=== PATIENT | female | born 1950 | race Caucasian/White ===

== ENCOUNTER → 2017-04-25 | Outpatient (CLI) | payer MEDICARE ==
[~2017-04-25] MED LIST: ALEN70TA47 PO; CETI10TA20 PO; ERGO50006 PO; FLUT1AER INH; FURO-124 PO; FURO40TA4 PO; HYDR-3730 PO; HYDR-3812 PO; LISI1TAB PO; MILN50TA6 PO; MONT10TA24 PO; NAPR1TAB21 PO; NF-ESOM40C PO; OXYC-12 PO; POTA8CAP9 PO; POTA8TAB6 PO; PREG150C PO; SERT50TA2 PO; TOPI100T PO
--- NOTE | 2017-04-25 13:26 | Diagnostic Imaging Report ---
EXAMINATION: Three views of the right knee were performed. INDICATION: The knee gives out. FINDINGS: There is total knee replacement with the prosthesis in good position. It appears similar to the baseline radiographs of 08/31/2010 except for a 1 mm zone of lucency seen along the anterior aspect of the supracondylar portion of the femur. There is no evidence of loosening otherwise in the femoral prosthesis or in the tibial prosthesis. The patellar resurfacing appears unremarkable. IMPRESSION: There is a 1 mm zone of lucency between the femoral prosthesis and the anterior cortex in the supracondylar region of the femur of uncertain significance. No other lucencies adjacent to the prosthesis which appears well seated in the distal femur and proximal tibia are seen. Correlate clinically. Dictated by: Dictated on workstation # [id number]
== END ==
LOC: RAD 10:14
PROVIDERS: ATTEND Orthopaedic Surgery
DX: Z96.651 Presence of right artificial knee joint (principal)
CPT/HCPCS: 73562

== ENCOUNTER 2017-06-13 10:11 | Outpatient (CLI) | payer MEDICARE ==
[~2017-06-13] VITALS: Ht 176.5 cm; Wt 81.6 kg
[~2017-06-13 10:11] MED LIST changes: -CETI10TA20 PO; -HYDR-3812 PO; -POTA8TAB6 PO
[2017-06-13 10:55] LABS: BASOPHILS # (AUTO) 0.1 10^3/uL (0.0-0.1); BASOPHILS % (AUTO) 1 % (0-10); EOSINOPHILS # (AUTO) 0.1 10^3/uL (0.0-0.3); EOSINOPHILS % (AUTO) 2 % (0-10); LYMPHOCYTES # (AUTO) 3.3 X 10^3 (1.0-4.0); LYMPHOCYTES % (AUTO) 39 % (12-44); MEAN CORPUSCULAR HEMOGLOBIN 31 PG (25-34); MEAN CORPUSCULAR HGB CONC 33 G/DL (32-36); MEAN CORPUSCULAR VOLUME 95 FL (80-99); MEAN PLATELET VOLUME 11.1 FL (7.4-10.4); MONOCYTES # (AUTO) 0.6 X 10^3 (0.0-1.0); MONOCYTES % (AUTO) 7 % (0-12); NEUTROPHILS # (AUTO) 4.3 X 10^3 (1.8-7.8); NEUTROPHILS % (AUTO) 51 % (42-75); PLATELET COUNT 308 10^3/uL (130-400); RED BLOOD COUNT 5.15 10^6/uL (4.35-5.85); RED CELL DISTRIBUTION WIDTH 13.4 % (10.0-14.5); WHITE BLOOD COUNT 8.4 10^3/uL (4.3-11.0)
[2017-06-13 10:57] LABS: BILIRUBIN,URINE NEGATIVE (NEGATIVE); KETONES,URINE NEGATIVE (NEGATIVE); LEUKOCYTE ESTERASE ,URINE NEGATIVE (NEGATIVE); NITRITE,URINE NEGATIVE (NEGATIVE); PH,URINE 5 (5-9); PROTEIN,URINE NEGATIVE (NEGATIVE); UROBILINOGEN,URINE NORMAL (NORMAL)
[2017-06-13 11:07] LABS: PROTHROMBIN TIME PATIENT 12.8 SEC (12.2-14.7)
[2017-06-13 11:10] LABS: SQUAMOUS EPITHELIAL CELL,UR 0-2 /HPF
[2017-06-13 11:16] LABS: ALANINE AMINOTRANSFERASE 19 U/L (0-55); ALBUMIN 4.7 GM/DL (3.2-4.5); ANION GAP 11 MMOL/L (5-14); ASPARTATE AMINO TRANSFERASE 16 U/L (5-34); BILIRUBIN,TOTAL 0.4 MG/DL (0.1-1.0); BLOOD UREA NITROGEN 14 MG/DL (7-18); BUN/CREATININE RATIO 16; CARBON DIOXIDE 26 MMOL/L (21-32); CHLORIDE 106 MMOL/L (98-107); CREATININE SERUM 0.87 MG/DL (0.60-1.30); GFR ESTIMATED > 60; GLUCOSE 91 MG/DL (70-105); POTASSIUM 3.6 MMOL/L (3.6-5.0); SODIUM 143 MMOL/L (135-145); TOTAL PROTEIN 7.7 GM/DL (6.4-8.2)
[2017-06-13 11:25] LABS: ERYTHROCYTE SEDIMENTATION RATE 1 MM/HR (0-30)
--- NOTE | 2017-06-13 12:23 | Diagnostic Imaging Report ---
PA and lateral views of the chest. INDICATION: Preoperative evaluation. COMPARISON: 04/01/16. FINDINGS: The lungs are hyperinflated. There is colonic gas seen in the right subdiaphragmatic area with no evidence of pneumoperitoneum. Mild opacity in the left lung base was seen previously compatible with scarring is noted with no definite acute consolidation. The heart size is normal. No significant effusion or pneumothorax. The mediastinum and kiki appear unremarkable. IMPRESSION: COPD. Mild left basilar scarring. Dictated by: Dictated on workstation # [id number]
[2017-06-13] MEDS ORDERED: POTA8TAB6 PO (15:23)
[2017-06-13] MEDS ORDERED: CETI10TA20 PO (15:23)
[2017-06-13] MEDS ORDERED: HYDR-3812 PO (15:23)
== END 2017-06-13 11:00 | disposition home or self-care (01) ==
LOC: PREOP 10:11
PROVIDERS: ATTEND Orthopaedic Surgery
DX: Z01.811 Encounter for preprocedural respiratory examination (principal); M25.361 Other instability, right knee; R53.83 Other fatigue
CPT/HCPCS: 36415; 71020; 80053; 81000; 85025; 85610; 85652; 86850; 86900; 86901; 87081; 93005

== ENCOUNTER 2017-07-26 10:00 | Outpatient (RCR) | payer MEDICARE ==
--- NOTE | 2017-06-21 14:54 | Anesthesia-General Post-Op ---
General Patient Condition Mental Status/LOC: Same as Preop Cardiovascular: Satisfactory Nausea/Vomiting: Absent Respiratory: Satisfactory Pain: Controlled Complications: Absent Post Op Complications Complications None Follow Up Care/Instructions Patient Instructions None needed. Anesthesia/Patient Condition Patient Condition Patient is doing well, no complaints, stable vital signs, no apparent adverse anesthesia problems. No complications reported per nursing. WILFRIDO TYSON CRNA Jun 21, 2017 14:54
[~2017-07-26 10:00] MED LIST changes: +ACHD5005 PO; +CETI10TA20 PO; +POTA8TAB6 PO
== END 2017-08-14 08:40 | disposition home or self-care (01) ==
PROVIDERS: ATTEND Orthopaedic Surgery
DX: M25.461 Effusion, right knee (principal); Z96.651 Presence of right artificial knee joint

== ENCOUNTER 2018-05-23 10:33 | Outpatient (CLI) | payer MEDICARE ==
[~2018-05-23] VITALS: Ht 176.5 cm; Wt 82.3 kg
[2018-05-23] MEDS ORDERED: HYDR200T78 PO (10:51)
[2018-05-23] MEDS ORDERED: PSEU120T18 PO (10:51)
[2018-05-23] MEDS ORDERED: DIPH25TA31 PO (10:51)
[2018-05-23] MEDS ORDERED: TOPI100T11 PO (10:51)
[2018-05-23] MEDS ORDERED: LEVO100T PO (10:51)
[2018-05-23] MEDS ORDERED: FLUT1BLS IH (10:51)
[2018-05-23 10:54] VITALS: BP 126/77
== END 2018-05-23 11:20 | disposition home or self-care (01) ==
LOC: PREOP 10:33
PROVIDERS: ATTEND Orthopaedic Surgery
DX: Z01.818 Encounter for other preprocedural examination (principal)
CPT/HCPCS: 87081

== ENCOUNTER 2018-05-29 08:54 | Day surgery (SDC) | payer MEDICARE ==
--- NOTE | 2018-05-20 10:33 | HISTORY AND PHYSICAL ---
DATE OF SERVICE: ADMISSION HISTORY AND PHYSICAL DATE OF SURGERY: This will be for admission for outpatient left knee arthroscopy on 05/29/2018. HISTORY OF PRESENT ILLNESS: The patient is a 68-year-old female with complaints of left anterior knee pain, catching and locking. She reports pain with stairs. She denies any specific injuries. She reports this has been ongoing since September. She has undergone treatment with injections with only temporary relief of symptoms. Due to mechanical symptoms and failure to improve with conservative measures, the patient elected to proceed with surgical intervention. REVIEW OF SYSTEMS: No chest pain, no shortness of breath. No dysuria. PAST MEDICAL HISTORY: Asthma, fibromyalgia, reflux, hypertension, osteoporosis, hiatal hernia and chronic sinusitis. PAST SURGICAL HISTORY: Herniorrhaphy, right total knee arthroplasty, partial hysterectomy, cholecystectomy, appendectomy and right knee revision. FAMILY HISTORY: Noncontributory. PRIMARY CARE PROVIDER: Dr. White. MEDICATIONS: 1. Lasix. 2. Singulair. 3. Potassium. 4. Vimovo. 5. Lyrica. 6. Alendronate 7. Aspirin. 8. Thyroid. 9. Breo Ellipta. 10. Sudafed. ALLERGIES: AZITHROMYCIN and PENICILLIN. SOCIAL HISTORY: The patient is a former smoker. Denies alcohol use. RADIOGRAPHS: Reveal calcification of her menisci with no evidence of fracture or dislocation. There is mild medial and patellofemoral joint space narrowing. PHYSICAL EXAMINATION: GENERAL: The patient is well developed, well nourished, in no acute distress. HEENT: Normocephalic and atraumatic. Pupils are equal, round and reactive to light. Oropharynx is clear. NECK: Supple. No lymphadenopathy. LUNGS: Clear to auscultation bilaterally. HEART: Regular rate and rhythm. ABDOMEN: Soft, nontender and nondistended. EXTREMITIES: Left knee demonstrates patellofemoral crepitus and pain with patellar loading. She has a moderate effusion. Range of motion is 0/0/140. There is no varus valgus laxity. Negative anterior and posterior drawer. She has mild pain medially with Norman's. IMPRESSION: Left knee chondromalacia of the patella. PLAN: Left knee arthroscopy and chondroplasty. The risks, benefits, options, ramifications and recovery have been discussed at length with the patient. She understands and wishes to proceed. Job ID: [id number] DocumentID: [id number] Dictated Date: 05/20/2018 10:08:26 Central Office Frame Wirer Date: 05/20/2018 10:33:01 Dictated By: RON HERCULES MD
[~2018-05-29] VITALS: Ht 176.5 cm; Wt 82.3 kg
[~2018-05-29 08:54] MED LIST changes: +DIPH25TA31 PO; +FLUT1BLS IH; +HYDR200T78 PO; +LEVO100T PO; +PSEU120T18 PO; +TOPI100T11 PO
[2018-05-29] MEDS ORDERED: LIDOCAINE 1% INJ 20 ML 20 ML VIAL ONE (09:00)
--- OUTSIDE RECORDS SUMMARY | 2018-05-29 09:02 | XMS REPORT | Continuity of Care Document ---
Author Author [facility] Organization [facility] Address Unknown Phone Unavailable Allergies Active Description Code Type Severity Reaction Onset Reported/Identified Relationship to Patient Clinical Status Yes Penicillins [id number] Drug Allergy Unknown N/A 08/25/2010 Yes erythromycin base [id number] Drug Allergy Moderate HIVES 12/28/2015 Yes Penicillins [id number] Drug Allergy Unknown FROM CHILDHOOD 12/28/2015 Yes gluten [id number] Drug Allergy Unknown N/A 06/13/2017 Yes gluten [id number] Drug Allergy Mild HEADACHES 05/23/2018 Medications There is no data. Problems Date Dx Coded Attending Type Code Diagnosis Diagnosed By 11/04/2010 Ot 311 DEPRESSIVE DISORDER NEC 11/04/2010 Ot 401.9 HYPERTENSION NOS 11/04/2010 Ot 492.8 EMPHYSEMA NEC 11/04/2010 Ot 733.00 OSTEOPOROSIS NOS 11/04/2010 Ot V43.65 KNEE JOINT REPLACEMENT STATUS 11/04/2010 Ot V54.81 AFTERCARE FOLLOWING JOINT REPLACEMENT 11/04/2010 Ot V57.1 PHYSICAL THERAPY NEC 02/05/2015 TAMMY POWELL COUNTER FORMER Ot 786.05 02/05/2015 TAMMY POWELL COUNTER FORMER Ot 786.50 12/28/2015 DANIEL ZAPATA MD Ot K21.9 GASTRO-ESOPHAGEAL REFLUX DISEASE WITHOUT 12/28/2015 DANIEL ZAPATA MD, Ot K43.9 VENTRAL HERNIA WITHOUT OBSTRUCTION OR GA 12/28/2015 DANIEL ZAPATA MD, Ot Z01.812 ENCOUNTER FOR PREPROCEDURAL LABORATORY E 12/28/2015 DANIEL ZAPATA MD, Ot Z11.2 ENCOUNTER FOR SCREENING FOR OTHER BACTER 12/29/2015 DANIEL ZAPATA MD, Ot K21.9 GASTRO-ESOPHAGEAL REFLUX DISEASE WITHOUT 12/29/2015 DANIEL ZAPATA MD, Ot K43.9 VENTRAL HERNIA WITHOUT OBSTRUCTION OR GA 12/29/2015 DANIEL ZAPATA MD, Ot Z01.812 ENCOUNTER FOR PREPROCEDURAL LABORATORY E 12/29/2015 DANIEL ZAPATA MD, Ot Z11.2 ENCOUNTER FOR SCREENING FOR OTHER BACTER 01/06/2016 DANIEL ZAPATA MD, Ot K21.0 GASTRO-ESOPHAGEAL REFLUX DISEASE WITH ES 01/06/2016 DANIEL ZAPATA MD, Ot K29.70 GASTRITIS, UNSPECIFIED, WITHOUT BLEEDING 01/06/2016 DANIEL ZAPATA MD, Ot K29.80 DUODENITIS WITHOUT BLEEDING 01/06/2016 DANIEL ZAPATA MD, Ot K43.2 INCISIONAL HERNIA WITHOUT OBSTRUCTION OR 01/06/2016 DANIEL ZAPATA MD, Ot K44.9 DIAPHRAGMATIC HERNIA WITHOUT OBSTRUCTION 01/07/2016 DANIEL ZAPATA MD, Ot K21.0 GASTRO-ESOPHAGEAL REFLUX DISEASE WITH ES 01/07/2016 DANIEL ZAPATA MD, Ot K29.70 GASTRITIS, UNSPECIFIED, WITHOUT BLEEDING 01/07/2016 DANIEL ZAPATA MD, Ot K29.80 DUODENITIS WITHOUT BLEEDING 01/07/2016 DANIEL ZAPATA MD, Ot K43.2 INCISIONAL HERNIA WITHOUT OBSTRUCTION OR 01/07/2016 DANIEL ZAPATA MD, Ot K44.9 DIAPHRAGMATIC HERNIA WITHOUT OBSTRUCTION 01/12/2016 DANIEL ZAPATA MD, Ot K21.0 GASTRO-ESOPHAGEAL REFLUX DISEASE WITH ES 01/12/2016 DANIEL ZAPATA MD, Ot K29.70 GASTRITIS, UNSPECIFIED, WITHOUT BLEEDING 01/12/2016 DANIEL ZAPATA MD, Ot K29.80 DUODENITIS WITHOUT BLEEDING 01/12/2016 DANIEL ZAPATA MD, Ot K43.2 INCISIONAL HERNIA WITHOUT OBSTRUCTION OR 01/12/2016 DANIEL ZAPATA MD, Ot K44.9 DIAPHRAGMATIC HERNIA WITHOUT OBSTRUCTION 03/13/2016 Ot 490 BRONCHITIS NOS 03/13/2016 TAMMY POWELL COUNTER FORMER Ot 786.2 COUGH 03/13/2016 TAMMY POWELL COUNTER FORMER Ot 729.5 PAIN IN LIMB 03/13/2016 FLORIDALMA WHITE MD Ot 562.10 DIVERTICULOSIS COLON (W/O MENT OF HEMORR 03/13/2016 FLORIDALMA WHITE MD Ot 599.0 URIN TRACT INFECTION NOS 03/13/2016 FLORIDALMA WHITE MD Ot V13.01 PERSONAL HISTORY OF URINARY CALCULI 03/13/2016 Ot 496 CHR AIRWAY OBSTRUCT NEC 03/13/2016 VANPRICILA KOWALSKISA M COUNTER FORMER Ot 786.05 SHORTNESS OF BREATH 03/13/2016 VANMARCINLAURARE TAMMY M COUNTER FORMER Ot 786.50 CHEST PAIN NOS 03/14/2016 JULES FONSECA PURE CULTURE OPERATOR Ot J44.9 CHRONIC OBSTRUCTIVE PULMONARY DISEASE, U 03/14/2016 JULES FONSECA PURE CULTURE OPERATOR Ot R05 COUGH 04/07/2016 JULES FONSECA PURE CULTURE OPERATOR Ot J44.9 CHRONIC OBSTRUCTIVE PULMONARY DISEASE, U 04/07/2016 JULES FONSECA PURE CULTURE OPERATOR Ot R05 COUGH 04/25/2017 VANMEGHANA TAMMY M COUNTER FORMER Ot 786.2 COUGH 04/25/2017 ANDRE TAMMY M COUNTER FORMER Ot 729.5 PAIN IN LIMB 04/25/2017 CHRISTOPHER JONES, FLORIDALMA Edwards Ot 562.10 DIVERTICULOSIS COLON (W/O MENT OF HEMORR 04/25/2017 CHRISTOPHER JONES, FLORIDALMA Edwards Ot 599.0 URIN TRACT INFECTION NOS 04/25/2017 CHRISTOPHER JONES, FLORIDALMA Edwards Ot V13.01 PERSONAL HISTORY OF URINARY CALCULI 04/25/2017 Ot 496 CHR AIRWAY OBSTRUCT NEC 04/25/2017 VANFELECIARE TAMMY M COUNTER FORMER Ot 786.05 SHORTNESS OF BREATH 04/25/2017 ANDRE TAMMY M COUNTER FORMER Ot 786.50 CHEST PAIN NOS 04/25/2017 JULES FONSECA PURE CULTURE OPERATOR Ot J44.9 CHRONIC OBSTRUCTIVE PULMONARY DISEASE, U 04/25/2017 JULES FONSECA PURE CULTURE OPERATOR Ot R05 COUGH 06/01/2017 DIOMEDES JONES, RON Wylie Ot Z96.651 PRESENCE OF RIGHT ARTIFICIAL KNEE JOINT 06/13/2017 RON HERCULES MD, Ot M25.361 OTHER INSTABILITY, RIGHT KNEE 06/13/2017 RON HERCULES MD Ot R53.83 OTHER FATIGUE 06/13/2017 RON HERCULES MD, Ot Z01.811 ENCOUNTER FOR PREPROCEDURAL RESPIRATORY 06/13/2017 RON HERCULES MD, Ot Z01.812 ENCOUNTER FOR PREPROCEDURAL LABORATORY E 06/13/2017 RON HERCULES MD, Ot Z01.812 ENCOUNTER FOR PREPROCEDURAL LABORATORY E 06/22/2017 RON HERCULES MD, Ot F32.9 MAJOR DEPRESSIVE DISORDER, SINGLE EPISOD 06/22/2017 RON HERCULES MD, Ot F41.9 ANXIETY DISORDER, UNSPECIFIED 06/22/2017 RON HERCULES MD, Ot I10 ESSENTIAL (PRIMARY) HYPERTENSION 06/22/2017 RON HERCULES MD, Ot J44.9 CHRONIC OBSTRUCTIVE PULMONARY DISEASE, U 06/22/2017 RON HERCULES MD, Ot K21.9 GASTRO-ESOPHAGEAL REFLUX DISEASE WITHOUT 06/22/2017 RON HERCULES MD, Ot K44.9 DIAPHRAGMATIC HERNIA WITHOUT OBSTRUCTION 06/22/2017 RON HERCULES MD, Ot K57.90 DVRTCLOS OF INTEST, PART UNSP, W/O PERF 06/22/2017 RON HERCULES MD, Ot K58.9 IRRITABLE BOWEL SYNDROME WITHOUT DIARRHE 06/22/2017 RON HERCULES MD, Ot M79.7 FIBROMYALGIA 06/22/2017 RON HERCULES MD, Ot M81.0 AGE-RELATED OSTEOPOROSIS W/O CURRENT PAT 06/22/2017 RON HERCULES MD, Ot T84.022A INSTABILITY OF INTERNAL RIGHT KNEE PROST 06/22/2017 RON HERCULES MD, Ot Z86.010 PERSONAL HISTORY OF COLONIC POLYPS 06/22/2017 RON HERCULES MD, Ot Z87.09 PERSONAL HISTORY OF OTHER DISEASES OF TH 06/22/2017 RON HERCULES MD, Ot Z87.891 PERSONAL HISTORY OF NICOTINE DEPENDENCE 06/22/2017 RON HERCULES MD Ot Z96.651 PRESENCE OF RIGHT ARTIFICIAL KNEE JOINT 06/25/2017 RON HERCULES MD Ot Z96.651 PRESENCE OF RIGHT ARTIFICIAL KNEE JOINT 06/27/2017 RON HERCULES MD, Ot M25.461 EFFUSION, RIGHT KNEE 06/27/2017 RON HERCULES MD Ot Z96.651 PRESENCE OF RIGHT ARTIFICIAL KNEE JOINT 08/07/2017 RON HERCULES MD, Ot M25.461 EFFUSION, RIGHT KNEE 08/07/2017 RON HERCULES MD Ot Z96.651 PRESENCE OF RIGHT ARTIFICIAL KNEE JOINT 08/14/2017 RON HERCULES MD Ot M25.461 EFFUSION, RIGHT KNEE 08/14/2017 RON HERCULES MD Ot Z96.651 PRESENCE OF RIGHT ARTIFICIAL KNEE JOINT 05/24/2018 DIOMEDES JONES, RON Wylie Ot Z01.818 ENCOUNTER FOR OTHER PREPROCEDURAL EXAMIN Procedures Code Description Performed By Performed On [id number] REMOVAL OF LINER FROM RIGHT KNEE JOINT, 06/20/2017 [id number] REPLACE OF R KNEE JT WITH SYNTH SUB, DENIA 06/20/2017 [id number] SUPPLEMENT RIGHT KNEE JOINT WITH LINER, 06/20/2017 Results Test Result Range Complete blood count (CBC) with automated white blood cell (WBC) differential - 06/13/17 10:41 Blood leukocytes automated count (number/volume) 8.4 10*3/uL 4.3-11.0 Blood erythrocytes automated count (number/volume) 5.15 10*6/uL 4.35-5.85 Venous blood hemoglobin measurement (mass/volume) 16.1 g/dL 11.5-16.0 Blood hematocrit (volume fraction) 49 % 35-52 Automated erythrocyte mean corpuscular volume 95 [foz_us] 80-99 Automated erythrocyte mean corpuscular hemoglobin (mass per erythrocyte) 31 pg 25-34 Automated erythrocyte mean corpuscular hemoglobin concentration measurement ( mass/volume) 33 g/dL 32-36 Automated erythrocyte distribution width ratio 13.4 % 10.0-14.5 Automated blood platelet count (count/volume) 308 10*3/uL 130-400 Automated blood platelet mean volume measurement 11.1 [foz_us] 7.4-10.4 Automated blood neutrophils/100 leukocytes 51 % 42-75 Automated blood lymphocytes/100 leukocytes 39 % 12-44 Blood monocytes/100 leukocytes 7 % 0-12 Automated blood eosinophils/100 leukocytes 2 % 0-10 Automated blood basophils/100 leukocytes 1 % 0-10 Blood neutrophils automated count (number/volume) 4.3 10*3 1.8-7.8 Blood lymphocytes automated count (number/volume) 3.3 10*3 1.0-4.0 Blood monocytes automated count (number/volume) 0.6 10*3 0.0-1.0 Automated eosinophil count 0.1 10*3/uL 0.0-0.3 Automated blood basophil count (count/volume) 0.1 10*3/uL 0.0-0.1 PT panel in platelet poor plasma by coagulation assay - 06/13/17 10:41 Prothrombin time (PT) in platelet poor plasma by coagulation assay 12.8 s 12.2-14.7 INR in platelet poor plasma or blood by coagulation assay 1.0 0.8-1.4 Complete urinalysis with reflex to culture - 06/13/17 10:41 Urine color determination YELLOW NRG Urine clarity determination CLEAR NRG Urine pH measurement by test strip 5 5-9 Specific gravity of urine by test strip 1.010 1.016- 1.022 Urine protein assay by test strip, semi-quantitative NEGATIVE NEGATIVE Urine glucose detection by automated test strip NEGATIVE NEGATIVE Erythrocytes detection in urine sediment by light microscopy NEGATIVE NEGATIVE Urine ketones detection by automated test strip NEGATIVE NEGATIVE Urine nitrite detection by test strip NEGATIVE NEGATIVE Urine total bilirubin detection by test strip NEGATIVE NEGATIVE Urine urobilinogen measurement by automated test strip (mass/volume) NORMAL NORMAL Urine leukocyte esterase detection by dipstick NEGATIVE NEGATIVE Automated urine sediment erythrocyte count by microscopy (number/high power field) NONE NRG Automated urine sediment leukocyte count by microscopy (number/high power field ) NONE NRG Bacteria detection in urine sediment by light microscopy MODERATE NRG Squamous epithelial cells detection in urine sediment by light microscopy 0-2 NRG Crystals detection in urine sediment by light microscopy NONE NRG Casts detection in urine sediment by light microscopy NONE NRG Mucus detection in urine sediment by light microscopy NEGATIVE NRG Complete urinalysis with reflex to culture NO NRG Comprehensive metabolic panel - 06/13/17 10:41 Serum or plasma sodium measurement (moles/volume) 143 mmol/L 135-145 Serum or plasma potassium measurement (moles/volume) 3.6 mmol/L 3.6-5.0 Serum or plasma chloride measurement (moles/volume) 106 mmol/L 98-107 Carbon dioxide 26 mmol/L 21-32 Serum or plasma anion gap determination (moles/volume) 11 mmol/L 5-14 Serum or plasma urea nitrogen measurement (mass/volume) 14 mg/dL 7-18 Serum or plasma creatinine measurement (mass/volume) 0.87 mg/dL 0.60-1.30 Serum or plasma urea nitrogen/creatinine mass ratio 16 NRG Serum or plasma creatinine measurement with calculation of estimated glomerular filtration rate > NRG Serum or plasma glucose measurement (mass/volume) 91 mg/dL 70-105 Serum or plasma calcium measurement (mass/volume) 10.0 mg/dL 8.5-10.1 Serum or plasma total bilirubin measurement (mass/volume) 0.4 mg/dL 0.1-1.0 Serum or plasma alkaline phosphatase measurement (enzymatic activity/volume) 64 U/L 40-136 Serum or plasma aspartate aminotransferase measurement (enzymatic activity/ volume) 16 U/L 5-34 Serum or plasma alanine aminotransferase measurement (enzymatic activity/volume ) 19 U/L 0-55 Serum or plasma protein measurement (mass/volume) 7.7 g/dL 6.4-8.2 Serum or plasma albumin measurement (mass/volume) 4.7 g/dL 3.2-4.5 Erythrocyte sedimentation rate by westergren method - 06/13/17 10:41 Erythrocyte sedimentation rate by westergren method 1 mm 0-30 Blood type T Indirect antibody screen panel - 06/13/17 10:41 ABO+Rh group AP NRG Blood group antibody screen NEGATIVE NRG Methicillin resistant Staphylococcus aureus (MRSA) screening culture - 10:41 Methicillin resistant Staphylococcus aureus (MRSA) screening culture NEG NRG Blood type T Indirect antibody screen panel - 06/20/17 08:31 ABO+Rh group AP NRG Transfusion band number [id number] NRG Blood group antibody screen NEGATIVE NRG Whole blood hemoglobin and hematocrit panel - 06/21/17 06:14 Venous blood hemoglobin measurement (mass/volume) 12.1 g/dL 11.5-16.0 Blood hematocrit (volume fraction) 37 % 35-52 Methicillin resistant Staphylococcus aureus (MRSA) screening culture - 11:10 Methicillin resistant Staphylococcus aureus (MRSA) screening culture NEG NRG Encounters ACCT No. Visit Date/Time Discharge Status Pt. Type Provider Facility Loc./Unit Complaint [id number] 05/23/2018 10:33:00 05/23/2018 11:20:00 DIS Outpatient RON HERCULES MD [facility] PREOP LEFT KNEE CHONDROMALASIA [id number] 07/26/2017 10:00:00 08/14/2017 08:40:00 DIS Outpatient RON HERCULES MD [facility] REHAB EFFUSION OF R KNEE [id number] 06/20/2017 07:43:00 06/22/2017 12:05:00 DIS Inpatient RON HERCULES MD [facility] 4TH RIGHT KNEE INSTABILITY [id number] 06/13/2017 10:11:00 06/13/2017 11:00:00 DIS Outpatient RON HERCULES MD [facility] PREOP RIGHT TOTAL KNEE REVISION [id number] 04/25/2017 10:14:00 04/25/2017 23:59:59 CLS Outpatient RON HERCULES MD [facility] RAD M17.11 [id number] 03/13/2016 15:42:00 03/13/2016 23:59:59 CLS Outpatient JULES FONSECA JAMEEL [facility] RAD COUGH,CONGESTION, COPD [id number] 01/06/2016 06:07:00 01/06/2016 12:00:00 DIS Outpatient DANIEL ZAPATA MD [facility] VENTERAL HERNIA,REFLEX [id number] 12/28/2015 07:51:00 12/28/2015 11:13:00 DIS Outpatient DANIEL ZAPATA MD [facility] PREOP VENTERAL HERNIA,REFLEX [id number] 01/14/2015 10:19:00 01/14/2015 23:59:59 CLS Outpatient TAMMY POWELL [facility] CARD CP,SOB [id number] 05/22/2014 09:09:00 05/22/2014 23:59:59 CLS Outpatient FLORIDALMA WHITE MD [facility] RAD RECCURENT UTI W/STONES [id number] 01/08/2014 08:45:00 01/08/2014 23:59:59 CLS Outpatient TAMMY POWELL COUNTER FORMER [facility] RAD LT THUMB PAIN [id number] 07/18/2013 08:45:00 07/18/2013 23:59:59 CLS Outpatient TAMMY POWELL COUNTER FORMER [facility] RAD COUGH [id number] 05/29/2018 08:00:00 PEN Preadmit RON HERCULES MD [facility] LEFT KNEE CHONDROMALASIA [id number] 10/08/2014 17:39:00 Document Registration [id number] 06/09/2011 12:03:00 Document Registration [id number] 11/04/2010 07:56:00 Document Registration [email or web address] 01/15/2015 04:03:41 ACT Document Registration 2012 04/25/2018 11:59:22 04/25/2018 23:59:59 [facility] Outpatient Eva White
[2018-05-29 09:10] VITALS: BP 131/80
[2018-05-29] MEDS ORDERED: CLINDAMYCIN 600 MG/50 ML IVPB 50 ML IV ONE ×2 (09:15→09:45)
[2018-05-29] MEDS: LACTATED RINGERS 1,000 ML IV PRN ×2 (09:20→11:21)
--- NOTE | 2018-05-29 09:35 | Progress Note-Pre Operative ---
Pre-Operative Progress Note H&P Reviewed The H&P was reviewed, patient examined and no changes noted. Date Seen by Provider: May 29, 2018 Time Seen by Provider: 09:35 Date H&P Reviewed: May 29, 2018 Time H&P Reviewed: 09:35 Pre-Operative Diagnosis: left patella chondromalacia RON HERCULES MD May 29, 2018 09:35
--- NOTE | 2018-05-29 09:36 | Progress Note-Post Operative ---
Post-Operative Progess Note Surgeon (s)/Casting House Laborer (s) Surgeon RON HERCULES MD Casting House Laborer: Jerome Link Pre-Operative Diagnosis left patella chondromalacia Post-Operative Diagnosis left knee chondromalacia of the patella and medial femoral condyle and medial meniscus Procedure & Operative Findings Date of Procedure 05/29/18 Procedure Performed/Findings left knee arthroscopic chondroplasty of the patella and medial femoral condyle and partial medial meniscectomy Anesthesia Type GETA Estimated Blood Loss Estimated blood loss (mL): minimal Specimens/Packing Specimens Removed none Packing: none RON HERCULES MD May 29, 2018 09:36
[2018-05-29] MEDS ORDERED: ONDANSETRON 4 MG/2 ML (SDV) Z0FRAN ONE (09:52)
[2018-05-29] MEDS ORDERED: proPOfol 200 MG/20 ML (DIPRIVAN) VIAL IV ONE (09:52)
[2018-05-29] MEDS ORDERED: DEXAMETHASONE 10 MG/ML (DECADRON) 1 ML VIAL ONE (09:52)
[2018-05-29] MEDS ORDERED: LIDOCAINE PF 2% 5 ML (XYLOCAINE) VIAL ONE (09:52)
[2018-05-29] MEDS ORDERED: fentaNYL INJECTION 100 MCG/2 ML AMP ONE (09:53)
[2018-05-29] MEDS ORDERED: MIDAZOLAM 2 MG/2 ML (VERSED) VIAL ONE (09:53)
[2018-05-29] MEDS ORDERED: morphine PF (DURAMORPH) 10 MG/10 ML AMP ONE (10:36)
[2018-05-29] MEDS ORDERED: BUPIVACAINE 0.25% 30 ML (SENSORCAINE) VIAL ONE (10:36)
[2018-05-29] MEDS ORDERED: SEVOFLURANE (ULTANE) 15 ML INHAL SOLN ONE ×2 (10:59→11:37)
[2018-05-29] MEDS ORDERED: HYDROcodone/APAP 7.5 MG/325 MG (LORTAB, LORCET PLUS) TABLET PO PRN (11:15)
[2018-05-29] MEDS ORDERED: MEPERIDINE (DEMEROL) INJ 50 MG/ML IVP ONE (11:45)
[2018-05-29] MEDS ORDERED: morphine INJ 10 MG/ML 1ML (SYR OR VIAL) IVP ONE (11:45)
[2018-05-29] MEDS ORDERED: ONDANSETRON 4 MG/2 ML (SDV) Z0FRAN IVP PRN (11:45)
[2018-05-29 12:25] VITALS: BP 83/68
[2018-05-29 12:30] VITALS: BP 83/68
[2018-05-29] MEDS ORDERED: HYDR-3816 PO (12:40)
[2018-05-29 12:55] VITALS: BP 141/73
--- NOTE | 2018-05-29 13:21 | Physical Therapy Ortho Eval ---
PT Orthopedic Evaluation Type of Surgery Knee Scope Prior Level of Function Current Living Status: Spouse Locomotion (Upon Admit): Independent Established Durable Medical Eq: Front Wheeled Walker, Crutches Subjective Subjective Pt reports she is familiar with the use of crutches and walkers due to past knee surgeries. Entry Into Home: Stairs With Railing Steps Into Home: 3 Steps Inside Home: 16 Steps Accessories: Railing Present Motor Control Motor Control: Motor Control WNL ROM ROM: WFL, except focal deficit full left knee extension, flexion 110degrees Strength Strength: Gen Weak,No Focal Deficit left post surgical weakness; fair quad set, hip flexors and extensors are normal Transfer Transfers (B, C, W/C) (FIM): 7 Gait Gait Assistive Device: None demonstrates independent ambulation with SBA, up down step with FWW and verbal cues for sequence. Right Lower Extremity: Right Weight Bearing Status RLE: Full Weight Bearing Left Lower Extremity: Left Weight Bearing Status LLE: Weight Bearing/Tolerated Gait (FIM): 7 Distance (FIM): 3=150 ft Summary/Comments Patient demonstrates independent ambulation without assistive device. Pt demonstrated appropriate use of FWW. Pt advised to use a crutch or FWW over the next several days to reduce stress on the knee. Treatment Rendered Treatment: Therapeutic Exercises, Gait Train, Step Train, Issued Written HEP Exercise Instruction: Quad Sets, Straight Leg Raise, Heel Slides Assessment/Goals Goal Time Frame: 1 Visit Understands HEP: Yes Safe Ambulation: Yes Plan Treatment Plan: Discharge Treatment Duration: 1 visit Visits Per Week: 1 PT/Family Agrees to Plan: Yes Time Time In: 1300 Time Out: 1320 Total Billed Treatment Time: 20 Billed Treatment Time visit, eval low complexity Yes PT/OT Therapy GCodes Therapy Functional Limitation: Physical Therapy Test(s)/Tool used to determine: FIM Functional Limitation-Current Charge Code: MOBCUR Modifier: CN Functional Limitation-Goal Charge Code: MOBGOAL Modifier: CN Functional Limitation-D/C Charge Codes: MOBDC Modifier: NELIDA WILDER PT May 29, 2018 13:21
--- NOTE | 2018-05-29 14:14 | Anesthesia-General Post-Op ---
General Patient Condition Mental Status/LOC: Same as Preop Cardiovascular: Satisfactory Nausea/Vomiting: Absent Respiratory: Satisfactory Pain: Controlled Complications: Absent Post Op Complications Complications None Follow Up Care/Instructions Patient Instructions None needed. Anesthesia/Patient Condition Patient Condition Patient is doing well, no complaints, stable vital signs, no apparent adverse anesthesia problems. No complications reported per nursing. WILFRIDO TYSON CRNA May 29, 2018 14:14
--- NOTE | 2018-05-29 16:02 | OPERATIVE REPORT ---
DATE OF SERVICE: 05/29/2018 PREOPERATIVE DIAGNOSIS: Left knee chondromalacia of the patella. POSTOPERATIVE DIAGNOSES: 1. Left knee chondromalacia of the patella. 2. Left knee chondromalacia of the medial femoral condyle. 3. Left knee medial meniscus tear. PROCEDURES: 1. Left knee arthroscopic chondroplasty of medial femoral condyle. 2. Left knee arthroscopic chondroplasty of the patella. 3. Left knee arthroscopic partial medial meniscectomy. SURGEON: Ra Arellano MD BAT BOY/GIRL: AUDRA Johnson, who assisted throughout the procedure and closed the incisions. ANESTHESIA: General endotracheal by Martin Tran CRNA. TOURNIQUET TIME: Not applicable. ESTIMATED BLOOD LOSS: Minimal. DRAINS: None. COMPLICATIONS: None. POSTOPERATIVE PLAN: Routine protocol. The patient was transported to the recovery room, awake and in stable condition. STATEMENT OF MEDICAL NECESSITY: The patient is a 68-year-old female with left anterior knee pain, catching, swelling and locking. She is tender along her anteromedial parapatellar region and she had pain with patellar loading. It was felt that she likely had chondromalacia of her patella. She had failed to respond to conservative measures including injections, anti-inflammatories and rest and due to functional impairment and failure to improve with conservative measures, the patient elected to proceed with surgical intervention. Examination under anesthesia revealed range of motion 0/0/130 with a negative Eliezer, negative anterior and posterior drawer. No varus valgus laxity, negative pivot shift. Arthroscopic findings, patella demonstrated grade II chondral flaps over the medial facet in a 15 x 15 area. The trochlea demonstrated no gross chondral abnormalities. The medial and lateral gutters were clear. The lateral compartment demonstrated no meniscal or chondral pathology. The ACL and PCL were intact. The medial compartment demonstrated grade III chondral flap in the anterior aspect of the femoral condyle in a 10 x 10 area. In addition, there was a horizontal cleavage tear of the posterior horn and body of the medial meniscus involving approximately one-third of the posterior horn and body. DESCRIPTION OF PROCEDURE: After risks and benefits of procedure were discussed and questions were answered and informed consent was signed and placed on chart, the operative site was confirmed in the preoperative holding area initialed by the surgeon. The patient was then transported to the operating room after adequate level of general endotracheal anesthetic were obtained, a timeout was called confirming the operative site. The left lower extremity was prepped and draped in the usual sterile fashion. The knee joint was injected with 60 mL of fluid and a standard inferolateral portal was placed with the arthroscope. Under direct visualization, an inferomedial portal was created. The risks and complications were carefully probed with the above findings noted and stable chondral flaps on the patella were debrided with the shaver back to a stable edge. The unstable chondral flaps and medial femoral condyle were debrided with a shaver back to a stable edge and the posterior horn of the medial meniscus and body were debrided with a biter and shaver, removed approximately one-third of the posterior horn and body. This was carefully probed with no further tearing or instability noted. The knee was copiously irrigated. Portal sites were closed with 4-0 nylons in simple interrupted fashion. Knee was injected with Duramorph. The portal sites were infiltrated with plain Marcaine. A soft dressing was applied. The patient was transported to the recovery room, awake and in stable condition. Job ID: [id number] DocumentID: [id number] Dictated Date: 05/29/2018 11:41:33 Ironer Sock Date: 05/29/2018 16:02:24 Dictated By: RA ARELLANO MD
== END 2018-05-29 13:25 | disposition home or self-care (01) ==
LOC: SDC 08:54
PROVIDERS: ATTEND Orthopaedic Surgery
DX: M23.222 Derangement of posterior horn of medial meniscus due to old tear or injury, left knee (principal); M22.42 Chondromalacia patellae, left knee; J45.909 Unspecified asthma, uncomplicated; J44.9 Chronic obstructive pulmonary disease, unspecified; F17.210 Nicotine dependence, cigarettes, uncomplicated; Z79.899 Other long term (current) drug therapy; Z79.82 Long term (current) use of aspirin

== ENCOUNTER → 2018-07-16 | Outpatient (CLI) | payer MEDICARE ==
[~2018-07-16] MED LIST changes: +HYDR-3816 PO
--- NOTE | 2018-07-16 09:53 | Diagnostic Imaging Report ---
PROCEDURE: MRI left joint lower extremity without contrast. TECHNIQUE: Multiplanar, multisequence MR imaging of the left knee was performed without contrast. COMPARISON: None available. INDICATION: Left knee pain. Patient reports prior arthroscopy of the left knee. FINDINGS: MENISCI Medial meniscus: Truncation of the free edge of the posterior horn of the medial meniscus may relate to degenerative tearing or partial meniscectomy. A nondisplaced horizontal cleavage tear in the posterior horn of the medial metaphysis present with no associated parameniscal cyst. Lateral meniscus: There is minimal focal degenerative free edge tearing in the body of the lateral meniscus. LIGAMENTS ACL: Intact. PCL: Intact. MCL: Intact. LCL: The lateral collateral ligamentous complex is intact. EXTENSOR MECHANISM The extensor mechanism is intact. CARTILAGE Medial compartment: Low-grade partial-thickness chondral thinning throughout the weightbearing aspect of the medial femoral condyle. No superimposed foci of full-thickness articular cartilage loss. Lateral compartment: The lateral compartment articular cartilage is preserved without high-grade chondromalacia. Patellofemoral compartment: Full-thickness chondral fissuring with underlying subchondral bone marrow edema like lesions at the patellar apex. Trochlear cartilage has no full-thickness loss. BONE No fracture, stress fracture or osteonecrosis. SOFT TISSUE No knee effusion or Rodriguez's cyst. IMPRESSION: 1. Degenerative free edge tearing versus partial meniscectomy in the posterior horn of the medial meniscus and the body of the lateral meniscus. Correlation with surgical history is advised. In the posterior horn of the medial meniscus there is a recurrent/residual horizontal cleavage tear which can be an expected finding after debridement of the free margins of horizontal meniscal tears. 2. Degenerative articular cartilage loss in the medial and patellofemoral compartments. This is greatest in the patellofemoral compartment with full-thickness chondral fissuring at the patellar apex. 3. Cruciate and collateral ligaments are normal. Dictated by: Dictated on workstation # [id number]
== END ==
LOC: RAD 07:56
PROVIDERS: ATTEND Orthopaedic Surgery
DX: S83.242A Other tear of medial meniscus, current injury, left knee, initial encounter (principal); Z98.890 Other specified postprocedural states
CPT/HCPCS: 73721

== ENCOUNTER → 2018-07-23 | Outpatient (CLI) | payer MEDICARE ==
[2018-07-23 08:47] LABS: HEMOGLOBIN 15.3 G/DL (11.5-16.0); MEAN PLATELET VOLUME 10.4 FL (7.4-10.4); RED BLOOD COUNT 4.95 10^6/uL (4.35-5.85); WHITE BLOOD COUNT 7.4 10^3/uL (4.3-11.0)
--- NOTE | 2018-07-23 09:28 | Diagnostic Imaging Report ---
INDICATION: Cough, dyspnea. Several days of being sick. TECHNIQUE: Two view chest 9:13 AM CORRELATION STUDY: 06/13/2017 FINDINGS: Lung lara hyperinflated with changes of COPD. Asymmetric bullous changes about the lung apices. Likely areas of fibrosis. No infiltrate. Heart size, mediastinum, and vasculature overall generally stable. Slight accentuated kyphotic curvature with degenerative changes of the thoracic spine. IMPRESSION: 1. Chronic appearing changes of the lung parenchyma with COPD. Negative for acute cardiopulmonary abnormality or significant interval change. Dictated by: Dictated on workstation # [id number]
== END ==
LOC: RAD 08:33
PROVIDERS: ATTEND Family Medicine
DX: J44.9 Chronic obstructive pulmonary disease, unspecified (principal)
CPT/HCPCS: 36415; 71046; 85027

== ENCOUNTER → 2018-08-12 | Outpatient (CLI) | payer MEDICARE ==
--- NOTE | 2018-08-12 09:54 | Diagnostic Imaging Report ---
EXAM: LUMBAR SPINE - 2-3 VIEWS INDICATION: SYNCOPE AND COLLAPSE COMPARISON: None. FINDINGS: There are five lumbar type vertebral bodies for the purposes of this report. Mild right apex thoracolumbar curvature centered at L1. Alignment is otherwise unremarkable. Vertebral body heights preserved. Mild degenerative endplate changes and facet arthropathy are greatest at L5-S1. The visualized pelvis is unremarkable. Cholecystectomy clips. IMPRESSION: Mild spondylotic changes in the lumbar spine. No acute radiographic findings. Dictated by: Dictated on workstation # [id number]
--- NOTE | 2018-08-12 10:15 | Diagnostic Imaging Report ---
INDICATION: Low back pain/tailbone pain after fall. COMPARISON: None available. FINDINGS AND IMPRESSION: 1. No displaced fracture in the sacrum or coccyx. 2. SI joints are normal alignment. Attempt was made to call report to requested number. However, due to being placed on hold multiple times, the report was unable to be given verbally. Dictated by: Dictated on workstation # [id number]
== END ==
LOC: RAD 09:16
PROVIDERS: ATTEND Nurse Practitioner Family
DX: M47.816 Spondylosis without myelopathy or radiculopathy, lumbar region (principal); M53.3 Sacrococcygeal disorders, not elsewhere classified; W19.XXXA Unspecified fall, initial encounter; Z90.49 Acquired absence of other specified parts of digestive tract
CPT/HCPCS: 72100; 72220

== ENCOUNTER → 2018-08-20 | Outpatient (CLI) | payer MEDICARE ==
--- NOTE | 2018-08-20 14:46 | Diagnostic Imaging Report ---
PROCEDURE: CT head without contrast. TECHNIQUE: Multiple contiguous axial images were obtained through the brain without the use of intravenous contrast. INDICATION: Fall and headache. No prior studies are available for comparison. Ventricles are prominent. The ventricular prominence is out of proportion to sulcal prominence, raising the question of normal pressure hydrocephalus. There is no midline shift. No acute intra-axial or extra-axial hemorrhage is seen. Cisterns are patent. The visualized paranasal sinuses are clear. IMPRESSION: 1. Ventriculomegaly, out of proportion to sulcal prominence, raising the question of normal pressure hydrocephalus. 2. No acute intracranial hemorrhage is detected. Dictated by: Dictated on workstation # [id number]
== END ==
LOC: RAD 14:01
PROVIDERS: ATTEND Family Medicine
DX: S09.90XA Unspecified injury of head, initial encounter (principal); G93.89 Other specified disorders of brain; W19.XXXA Unspecified fall, initial encounter
CPT/HCPCS: 70450

== ENCOUNTER → 2018-08-26 | Outpatient (CLI) | payer MEDICARE ==
[~2018-08-26] VITALS: Ht 175.3 cm; Wt 83.5 kg
[~2018-08-26] MED LIST changes: +CATHETER FLUSH 10 ML SYR IV PRN; +REGADENOSON 0.4 MG/5 ML SYR (LEXISCAN) IV ONE
[2018-08-26 08:54] VITALS: BP 128/78
[2018-08-26 09:03] VITALS: BP 136/83
[2018-08-26 09:04] VITALS: BP 141/80
--- NOTE | 2018-08-26 11:42 | STRESS TEST ---
DATE OF SERVICE: 08/26/2018 LEXISCAN MYOVIEW STRESS TEST REPORT REFERRING PHYSICIAN: Dr. White. Baseline heart rate is 58, baseline blood pressure 128/78. Baseline EKG is sinus rhythm with no ischemic changes. In summary, the patient was injected with 10.63 mCi of technetium-99 Myoview and the resting images were obtained. Then, the patient received 0.4 mg of Lexiscan followed by 29.6 mCi of technetium-99 Myoview. Throughout the test, there were no EKG changes. The resting and stress images were reviewed and compared in the short axis, horizontal long axis, and vertical long axis views. Review of the images showed breast attenuation affecting the quality of the study. There is mild ischemia involving the mid to apical anterior wall and anterolateral wall. SSS is 6. SDS is 6. TID value 1.17. On the gated images, the left ventricle appeared to be in normal size with normal contractility. Calculated ejection fraction 62%. CONCLUSION: 1. The patient tolerated Lexiscan well. 2. Breast attenuation with mild ischemia involving the mid to apical anterior wall and anterolateral wall. 3. Normal left ventricular size with normal contractility. Calculated ejection fraction 62%. Job ID: [id number] DocumentID: [id number] Dictated Date: 08/26/2018 11:30:17 Paper Goods Machine Operator Date: 08/26/2018 11:41:09 Dictated By: CAR GASTON MD
== END ==
LOC: CARD 08-21 11:51
PROVIDERS: ATTEND Family Medicine
DX: Z01.810 Encounter for preprocedural cardiovascular examination (principal); R55 Syncope and collapse; R06.00 Dyspnea, unspecified; R01.1 Cardiac murmur, unspecified; Z82.49 Family history of ischemic heart disease and other diseases of the circulatory system
CPT/HCPCS: 78452; 93017

== ENCOUNTER 2018-09-11 08:11 | Day surgery (SDC) | payer MEDICARE ==
[2018-09-11] VITALS (9 sets, daily range): BP systolic 119–141; BP diastolic 71–85
[~2018-09-11] VITALS: Ht 175.3 cm; Wt 83.5 kg
[~2018-09-11 08:11] MED LIST changes: -ALEN70TA47 PO; +ALEN70TA5 PO; -CATHETER FLUSH 10 ML SYR IV PRN; -REGADENOSON 0.4 MG/5 ML SYR (LEXISCAN) IV ONE
[2018-09-11] MEDS ORDERED: LIDOCAINE 1% INJ 20 ML 20 ML VIAL ONE (08:13)
[2018-09-11] MEDS ORDERED: NS IV 1000 ML 1,000 ML ONE (08:13)
[2018-09-11] MEDS ORDERED: HEParin (CATH LAB) 2,000 ML IV ONE (08:14)
[2018-09-11] MEDS ORDERED: NS IV 1000 ML 1,000 ML IV SCH (08:18)
[2018-09-11 08:47] LABS: BILIRUBIN,URINE NEGATIVE (NEGATIVE); CLARITY,URINE CLEAR; COLOR,URINE YELLOW; GLUCOSE, URINE (UA) NEGATIVE (NEGATIVE); KETONES,URINE NEGATIVE (NEGATIVE); LEUKOCYTE ESTERASE ,URINE 2+ (NEGATIVE); NITRITE,URINE NEGATIVE (NEGATIVE); PH,URINE 6 (5-9); PROTEIN,URINE NEGATIVE (NEGATIVE); UROBILINOGEN,URINE NORMAL (NORMAL)
[2018-09-11 08:54] LABS: AMORPHOUS SEDIMENT,UR RARE AMOR URATES /LPF; BACTERIA,URINE TRACE /HPF; SQUAMOUS EPITHELIAL CELL,UR 0-2 /HPF
[2018-09-11] MEDS ORDERED: RT-ALBUINH INH (09:01)
[2018-09-11] MEDS ORDERED: ACET250T3 PO (09:01)
[2018-09-11] MEDS ORDERED: CHOL500049 PO (09:02)
[2018-09-11 09:03] LABS: HEMOGLOBIN 14.9 G/DL (11.5-16.0); MEAN PLATELET VOLUME 10.4 FL (7.4-10.4); RED CELL DISTRIBUTION WIDTH 13.6 % (10.0-14.5); WHITE BLOOD COUNT 8.2 10^3/uL (4.3-11.0)
--- NOTE | 2018-09-11 09:04 | NUR ---
Spoke to patient she did not bring list or bottles. Went over medication list in chart. She stated she took her self off Hydroxychloroquine. Called [facility] pharmacy to verify the rest of the medication.
--- NOTE | 2018-09-11 09:10 | Diagnostic Imaging Report ---
INDICATION: Heart disease. FINDINGS: Heart size is normal. There is some chronic appearing interstitial infiltrates in lung bases. There is no pleural effusion or pneumothorax. Mediastinum is unremarkable. IMPRESSION: Chronic appearing interstitial infiltrates in the lung bases otherwise unremarkable. Dictated by: Dictated on workstation # [id number]
--- OUTSIDE RECORDS SUMMARY | 2018-09-11 09:21 | XMS REPORT | Continuity of Care Document ---
Author Author [facility] Organization [facility] Address Unknown Phone Unavailable Allergies Active Description Code Type Severity Reaction Onset Reported/Identified Relationship to Patient Clinical Status Yes Penicillins [id number] Drug Allergy Unknown N/A 08/25/2010 Yes erythromycin base [id number] Drug Allergy Moderate HIVES 12/28/2015 Yes Penicillins [id number] Drug Allergy Unknown FROM CHILDHOOD 12/28/2015 Yes gluten [id number] Drug Allergy Unknown N/A 06/13/2017 Yes gluten [id number] Drug Allergy Mild HEADACHES 05/23/2018 Medications There [...] V57.1 PHYSICAL THERAPY NEC 02/05/2015 TAMMY POWELL PHOTOGRAVURE PRESS OPERATOR Ot 786.05 02/05/2015 TAMMY POWELL PHOTOGRAVURE PRESS OPERATOR Ot 786.50 12/28/2015 DANIEL ZAPAAT MD Ot K21.9 GASTRO-ESOPHAGEAL REFLUX DISEASE WITHOUT [...] OBSTRUCTION 03/13/2016 Ot 490 BRONCHITIS NOS 03/13/2016 VANTAMMY KOWALSKI PHOTOGRAVURE PRESS OPERATOR Ot 786.2 COUGH 03/13/2016 TAMMY POWELL PHOTOGRAVURE PRESS OPERATOR Ot 729.5 PAIN IN LIMB 03/13/2016 FLORIDALMA WHITE MD Ot 562.10 DIVERTICULOSIS COLON (W/O MENT OF HEMORR 03/13/2016 FLORIDALMA WHITE MD Ot 599.0 URIN TRACT INFECTION NOS 03/13/2016 FLORIDALMA WHITE MD Ot V13.01 PERSONAL HISTORY OF URINARY CALCULI 03/13/2016 Ot 496 CHR AIRWAY OBSTRUCT NEC 03/13/2016 VANTAMMY KOWALSKI M PHOTOGRAVURE PRESS OPERATOR Ot 786.05 SHORTNESS OF BREATH 03/13/2016 VANBECELAERE TAMMY M PHOTOGRAVURE PRESS OPERATOR Ot 786.50 CHEST PAIN NOS 03/14/2016 JULES FONSECA SUPPLY CATALOGUER Ot J44.9 CHRONIC OBSTRUCTIVE PULMONARY DISEASE, U 03/14/2016 JULES FONSECA SUPPLY CATALOGUER Ot R05 COUGH 04/07/2016 JULES FONSECA SUPPLY CATALOGUER Ot J44.9 CHRONIC OBSTRUCTIVE PULMONARY DISEASE, U 04/07/2016 JULES FONSECA SUPPLY CATALOGUER Ot R05 COUGH 04/25/2017 VANMARCINELAERE TAMMY M PHOTOGRAVURE PRESS OPERATOR Ot 786.2 COUGH 04/25/2017 BRANDIRE TAMMY M PHOTOGRAVURE PRESS OPERATOR Ot 729.5 PAIN IN LIMB 04/25/2017 CHRISTOPHER JONES, FLORIDALMA Edwards Ot 562.10 DIVERTICULOSIS COLON (W/O MENT OF HEMORR 04/25/2017 CHRISTOPHER JONES, FLORIDALMA Edwards Ot 599.0 URIN TRACT INFECTION NOS 04/25/2017 CHRISTOPHER JONES, FLORIDALMA Edwards Ot V13.01 PERSONAL HISTORY OF URINARY CALCULI 04/25/2017 Ot 496 CHR AIRWAY OBSTRUCT NEC 04/25/2017 VANMARCINELAERE TAMMY M PHOTOGRAVURE PRESS OPERATOR Ot 786.05 SHORTNESS OF BREATH 04/25/2017 BRNADIRE TAMMY M PHOTOGRAVURE PRESS OPERATOR Ot 786.50 CHEST PAIN NOS 04/25/2017 JULES FONSECA SUPPLY CATALOGUER Ot J44.9 CHRONIC OBSTRUCTIVE PULMONARY DISEASE, U 04/25/2017 JULES FONSECA SUPPLY CATALOGUER Ot R05 COUGH 06/01/2017 DIOMEDES JONES, RON Wylie Ot Z96.651 PRESENCE OF RIGHT ARTIFICIAL KNEE JOINT 06/13/2017 RNO HECRULES MD, Ot M25.361 OTHER INSTABILITY, RIGHT KNEE 06/13/2017 RON HERCULES MD Ot R53.83 OTHER FATIGUE 06/13/2017 RON HERCULES MD, Ot Z01.811 ENCOUNTER FOR PREPROCEDURAL RESPIRATORY 06/13/2017 RON HERCULES MD Ot Z01.812 ENCOUNTER FOR PREPROCEDURAL LABORATORY E 06/13/2017 RON HERCULES MD, Ot Z01.812 ENCOUNTER FOR PREPROCEDURAL LABORATORY E 06/22/2017 RON EHRCULES MD, Ot F32.9 MAJOR DEPRESSIVE DISORDER, SINGLE [...] RIGHT ARTIFICIAL KNEE JOINT 06/27/2017 RON HERCULES MD Ot M25.461 EFFUSION, RIGHT KNEE 06/27/2017 RON HERCULES MD Ot Z96.651 PRESENCE OF RIGHT ARTIFICIAL KNEE JOINT 08/07/2017 RON HERCULES MD Ot M25.461 EFFUSION, RIGHT KNEE 08/07/2017 RON HERCULES MD Ot Z96.651 PRESENCE OF RIGHT ARTIFICIAL KNEE JOINT 08/14/2017 RON HERCULES MD Ot M25.461 EFFUSION, RIGHT KNEE 08/14/2017 RON HERCULES MD Ot Z96.651 PRESENCE OF RIGHT ARTIFICIAL KNEE JOINT 05/23/2018 RON HERCULES MD Ot Z01.818 ENCOUNTER FOR OTHER PREPROCEDURAL EXAMIN 05/24/2018 RON HERCULES MD, Ot Z01.818 ENCOUNTER FOR OTHER PREPROCEDURAL EXAMIN 05/29/2018 TAMMY POWELL PHOTOGRAVURE PRESS OPERATOR Ot 786.2 COUGH 05/29/2018 TAMMY POWELL PHOTOGRAVURE PRESS OPERATOR Ot 729.5 PAIN IN LIMB 05/29/2018 CHRISTOPHER JONES, FLORIDALMA Edwards Ot 562.10 DIVERTICULOSIS COLON (W/O MENT OF HEMORR 05/29/2018 FLORIDALMA WHITE MD Ot 599.0 URIN TRACT INFECTION NOS 05/29/2018 CHRISTOPHER JONES, FLORIDALMA Edwards Ot V13.01 PERSONAL HISTORY OF URINARY CALCULI 05/29/2018 Ot 496 CHR AIRWAY OBSTRUCT NEC 05/29/2018 TAMMY POWELL PHOTOGRAVURE PRESS OPERATOR Ot 786.05 SHORTNESS OF BREATH 05/29/2018 TAMMY POWELL PHOTOGRAVURE PRESS OPERATOR Ot 786.50 CHEST PAIN NOS 05/29/2018 JULES FONSECA SUPPLY CATALOGUER Ot J44.9 CHRONIC OBSTRUCTIVE PULMONARY DISEASE, U 05/29/2018 JLUES FONSECA SUPPLY CATALOGUER Ot R05 COUGH 05/29/2018 RON HERCULES MD Ot Z96.651 PRESENCE OF RIGHT ARTIFICIAL KNEE JOINT 05/29/2018 RON HERCULES MD Ot F17.210 NICOTINE DEPENDENCE, CIGARETTES, UNCOMPL 05/29/2018 RON HERCULES MD Ot J44.9 CHRONIC OBSTRUCTIVE PULMONARY DISEASE, U 05/29/2018 RON HERCULES MD, Ot J45.909 UNSPECIFIED ASTHMA, UNCOMPLICATED 05/29/2018 RON HERCULES MD, Ot M22.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, LEFT KNEE 05/29/2018 RON HERCULES MD Ot M23.222 DERANG OF POST HORN OF MEDIAL MENSC D/T 05/29/2018 RON HERCULES MD, Ot Z79.82 JAIL (CURRENT) USE OF ASPIRIN 05/29/2018 RON HERCULES MD, Ot Z79.899 OTHER JAIL (CURRENT) DRUG THERAPY 06/03/2018 RON HERCULES MD, Ot F17.210 NICOTINE DEPENDENCE, CIGARETTES, UNCOMPL 06/03/2018 RON HERCULES MD, Ot J44.9 CHRONIC OBSTRUCTIVE PULMONARY DISEASE, U 06/03/2018 RON HERCULES MD, Ot J45.909 UNSPECIFIED ASTHMA, UNCOMPLICATED 06/03/2018 RON HERCULES MD, Ot M22.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, LEFT KNEE 06/03/2018 RON HERCULES MD, Ot M23.222 DERANG OF POST HORN OF MEDIAL MENSC D/T 06/03/2018 RON HERCULES MD Ot Z79.82 CREDIT CHARGE AUTHORIZER (CURRENT) USE OF ASPIRIN 06/03/2018 RON HERCULES MD, Ot Z79.899 OTHER CREDIT CHARGE AUTHORIZER (CURRENT) DRUG THERAPY 07/17/2018 RON HERCULES MD, Ot S83.242A OTH TEAR OF MEDIAL MENISCUS, CURRENT INJ 07/17/2018 RON HERCULES MD, Ot Z98.890 OTHER SPECIFIED POSTPROCEDURAL STATES 07/25/2018 EVA HU DO, Ot J44.9 CHRONIC OBSTRUCTIVE PULMONARY DISEASE, U 08/10/2018 RON HERCULES MD, Ot S83.242A OTH TEAR OF MEDIAL MENISCUS, CURRENT INJ 08/10/2018 RON HERCULES MD Ot Z98.890 OTHER SPECIFIED POSTPROCEDURAL STATES 08/14/2018 PREET HANSON APRN Ot M47.816 SPONDYLOSIS W/O MYELOPATHY OR RADICULOPA 08/14/2018 PREET HANSON APRN Ot M53.3 SACROCOCCYGEAL DISORDERS, NOT ELSEWHERE 08/14/2018 PREET HANSON APRN Ot W19.XXXA UNSPECIFIED FALL, INITIAL ENCOUNTER 08/14/2018 PREET HANSON APRN Ot Z90.49 ACQUIRED ABSENCE OF OTHER SPECIFIED PART 08/15/2018 EVA HU DO Ot J44.9 CHRONIC OBSTRUCTIVE PULMONARY DISEASE, U 08/21/2018 EVA HU DO Ot G93.89 OTHER SPECIFIED DISORDERS OF BRAIN 08/21/2018 EVA HU DO Ot S09.90XA UNSPECIFIED INJURY OF HEAD, INITIAL ENCO 08/21/2018 EVA HU DO Ot W19.XXXA UNSPECIFIED FALL, INITIAL ENCOUNTER 08/23/2018 DIOMEDES JONES, RON Wylie Ot S83.242A OTH TEAR OF MEDIAL MENISCUS, CURRENT INJ 08/23/2018 DIOMEDES JONES, RON Wylie Ot Z98.890 OTHER SPECIFIED POSTPROCEDURAL STATES 08/29/2018 JONDER DOTIARAEVA S Ot R01.1 CARDIAC MURMUR, UNSPECIFIED 08/29/2018 JONDER DOTIARAEVA S Ot R06.00 DYSPNEA, UNSPECIFIED 08/29/2018 JONDER DOTIARAEVA S Ot R55 SYNCOPE AND COLLAPSE 08/29/2018 JONDER DO EVA S Ot Z01.810 ENCOUNTER FOR PREPROCEDURAL CARDIOVASCUL 08/29/2018 IGLESIAER TIARA KERNSEVA S Ot Z82.49 FAMILY HX OF ISCHEM HEART DIS AND OTH DI 08/29/2018 SHA HU DOLINE S Ot J44.9 CHRONIC OBSTRUCTIVE PULMONARY DISEASE, U 09/09/2018 PREET HANSON APRN Ot M47.816 SPONDYLOSIS W/O MYELOPATHY OR RADICULOPA 09/09/2018 PREET HANSON APRN Ot M53.3 SACROCOCCYGEAL DISORDERS, NOT ELSEWHERE 09/09/2018 PREET HANSON APRN Ot W19.XXXA UNSPECIFIED FALL, INITIAL ENCOUNTER 09/09/2018 PREET HANSON APRN Ot Z90.49 ACQUIRED ABSENCE OF OTHER SPECIFIED PART 09/09/2018 CAR GASTON MD Ot I25.10 ATHSCL HEART DISEASE OF [place] CORONARY 09/09/2018 CAR GASTON MD Ot I34.0 NONRHEUMATIC MITRAL (VALVE) INSUFFICIENC 09/09/2018 CAR GASTON MD Ot M54.2 CERVICALGIA 09/09/2018 CAR GASTON MD Ot R07.9 CHEST PAIN, UNSPECIFIED 09/09/2018 CAR GASTON MD Ot R55 SYNCOPE AND COLLAPSE Procedures Code Description Performed By Performed On [id number] REMOVAL OF LINER FROM RIGHT KNEE JOINT, 06/20/2017 [id number] REPLACE OF R KNEE JT WITH SYNTH SUB, DENIA 06/20/2017 [id number] SUPPLEMENT RIGHT KNEE JOINT WITH LINER, 06/20/2017 [...] ABO+Rh group AP NRG Transfusion band number [id number] NRG Blood group antibody screen NEGATIVE NRG Whole blood hemoglobin and hematocrit panel - 06/21/17 06:14 Venous blood hemoglobin measurement (mass/volume) 12.1 g/dL 11.5-16.0 Blood hematocrit (volume fraction) 37 % 35-52 Methicillin resistant Staphylococcus aureus (MRSA) screening culture - 11:10 Methicillin resistant Staphylococcus aureus (MRSA) screening culture NEG NRG Automated blood complete blood count (hemogram) panel - 07/23/18 08:42 Blood leukocytes automated count (number/volume) 7.4 10*3/uL 4.3-11.0 Blood erythrocytes automated count (number/volume) 4.95 10*6/uL 4.35-5.85 Venous blood hemoglobin measurement (mass/volume) 15.3 g/dL 11.5-16.0 Blood hematocrit (volume fraction) 46 % 35-52 Automated erythrocyte mean corpuscular volume 93 [foz_us] 80-99 Automated erythrocyte mean corpuscular hemoglobin (mass per erythrocyte) 31 pg 25-34 Automated erythrocyte mean corpuscular hemoglobin concentration measurement ( mass/volume) 33 g/dL 32-36 Automated erythrocyte distribution width ratio 13.0 % 10.0-14.5 Automated blood platelet count (count/volume) 290 10*3/uL 130-400 Automated blood platelet mean volume measurement 10.4 [foz_us] 7.4-10.4 Encounters ACCT No. Visit Date/Time Discharge Status Pt. Type Provider Facility Loc./Unit Complaint [id number] 09/06/2018 09:18:00 09/06/2018 23:59:59 CLS Outpatient CAR GASTON MD [facility] CARD CAD [id number] 09/03/2018 16:19:00 09/03/2018 23:59:59 CLS Preadmit CAR GASTON MD [facility] CARD SOB [id number] 08/26/2018 07:15:00 08/26/2018 23:59:59 CLS Outpatient JONDER EVA KERNS S [facility] CARD SYNCOPE,DYSPNEA, FAMILIAL CAD [id number] 08/20/2018 14:01:00 08/20/2018 23:59:59 CLS Outpatient TIARA HU DOQUELINE S [facility] RAD HEAD TRAUMA, CEPHALGIA [id number] 08/12/2018 09:16:00 08/12/2018 23:59:59 CLS Outpatient VALENTIN PREET R SUPPLY CATALOGUER [facility] RAD SYNCOPE AND COLLAPSE [id number] 07/23/2018 08:33:00 07/23/2018 23:59:59 CLS Outpatient EVA HU DO S [facility] RAD COUGH,DYSPNEA [id number] 07/16/2018 07:56:00 07/16/2018 23:59:59 CLS Outpatient RON HERCULES MD [facility] RAD OTHER TEAR OF MEDIAL MENISCUS LEFT KNEE [id number] 05/29/2018 08:54:00 05/29/2018 13:25:00 DIS Outpatient RON HERCULES MD [facility] SDC LEFT KNEE CHONDROMALASIA [id number] 05/23/2018 10:33:00 05/23/2018 11:20:00 DIS Outpatient RON HERCULES MD [facility] PREOP LEFT KNEE CHONDROMALASIA [id number] 07/26/2017 10:00:00 08/14/2017 08:40:00 DIS Outpatient RON HERCULES MD [facility] REHAB EFFUSION OF R KNEE [id number] 06/20/2017 07:43:00 06/22/2017 12:05:00 DIS Inpatient RON HERCULES MD [facility] 4TH RIGHT KNEE INSTABILITY [id number] 06/13/2017 10:11:00 06/13/2017 11:00:00 DIS Outpatient RON HERCULES MD [facility] PREOP RIGHT TOTAL KNEE REVISION [id number] 04/25/2017 10:14:00 04/25/2017 23:59:59 CLS Outpatient RON HERCULES MD [facility] RAD M17.11 [id number] 03/13/2016 15:42:00 03/13/2016 23:59:59 CLS Outpatient MARIANJULES Sigifredo JORGENSEN [facility] RAD COUGH,CONGESTION, COPD [id number] 01/06/2016 06:07:00 01/06/2016 12:00:00 DIS Outpatient DANIEL ZAPATA MD [facility] SDC VENTERAL HERNIA,REFLEX [id number] 12/28/2015 07:51:00 12/28/2015 11:13:00 DIS Outpatient DANIEL ZAPATA MD [facility] PREOP VENTERAL HERNIA,REFLEX [id number] 01/14/2015 10:19:00 01/14/2015 23:59:59 CLS Outpatient TAMMY POWELL [facility] CARD CP,SOB [id number] 05/22/2014 09:09:00 05/22/2014 23:59:59 CLS Outpatient FLORIDALMA WHITE MD [facility] RAD RECCURENT UTI W/STONES [id number] 01/08/2014 08:45:00 01/08/2014 23:59:59 CLS Outpatient TAMMY POWELL PHOTOGRAVURE PRESS OPERATOR [facility] RAD LT THUMB PAIN [id number] 07/18/2013 08:45:00 07/18/2013 23:59:59 CLS Outpatient TAMMY POWELL PHOTOGRAVURE PRESS OPERATOR [facility] RAD COUGH [id number] 09/11/2018 11:00:00 PEN Preadmit ALEK JONES, CAR Santos [facility] CATH ABN STRESS [id number] 10/08/2014 17:39:00 Document Registration [id number] 06/09/2011 12:03:00 Document Registration [id number] 11/04/2010 07:56:00 Document Registration [id number] 01/15/2015 04:03:41 ACT Document Registration 2012 08/16/2018 01:19:26 08/16/2018 23:59:59 [facility] Eva Gomez
[2018-09-11 09:22] LABS: PROTHROMBIN TIME PATIENT 13.5 SEC (12.2-14.7)
[2018-09-11 09:35] LABS: ALANINE AMINOTRANSFERASE 14 U/L (0-55); ALBUMIN 4.1 GM/DL (3.2-4.5); ALKALINE PHOSPHATASE 73 U/L (40-136); BILIRUBIN,TOTAL 0.3 MG/DL (0.1-1.0); BUN/CREATININE RATIO 18; CARBON DIOXIDE 17 MMOL/L (21-32); CHLORIDE 117 MMOL/L (98-107); CHOLESTEROL 147 MG/DL (< 200); CREATININE SERUM 0.77 MG/DL (0.60-1.30); GFR ESTIMATED > 60; GLUCOSE 98 MG/DL (70-105); HDL CHOLESTEROL 41 MG/DL (40-60); POTASSIUM 4.1 MMOL/L (3.6-5.0); SODIUM 143 MMOL/L (135-145); TOTAL PROTEIN 6.7 GM/DL (6.4-8.2); TRIGLYCERIDES 57 MG/DL (<150); VLDL CHOLESTEROL 11 MG/DL (5-40)
[2018-09-11] MEDS ORDERED: MIDAZOLAM 5 MG/5 ML (VERSED) VIAL ONE (11:32)
[2018-09-11] MEDS ORDERED: fentaNYL INJECTION 100 MCG/2 ML AMP ONE (11:32)
--- NOTE | 2018-09-11 11:34 | Cardiac Procedure Note-CS/ASA ---
Pre-Procedure Note Pre-Op Procedure Note H&P Reviewed The H&P was reviewed, patient examined and no changes noted. Date H&P Reviewed: Sep 11, 2018 Time H&P Reviewed: 11:34 Conscious Sedation Pre-Proced Time 11:34 ASA Score 3 For ASA 3 and 4: Consider anesthesia and medical clearance. Also, for patients with a history of failed moderate sedation consider anesthesia. Airway Lungs Heart ASA score ASA 1: a normal healthy patient ASA 2: a patient with a mild systemic disease (mid diabetes, controlled hypertension, obesity x ASA 3: a patient with a severe systemic disease that limits activity (angina , COPD, prior Myocardial infarction) ASA 4: a patient with an incapacitating disease that is a constant threat to life (CHF, renal failure) ASA 5: a moribund patient not expected to survive 24 hrs. (ruptured aneurysm) ASA 6: a declared brain- patient whose organs are being harvested. For emergent operations, add the letter E after the classification Mallampati Classification Grade 3 Sedation Plan Analgesia, Amnesia, Plan communicated to team members, Discussed options with patient/fam, Discussed risks with patient/fam The patient is an appropriate candidate to undergo the planned procedure, sedation, and anesthesia. The patient immediately re-assessed prior to indication. CAR GASTON MD Sep 11, 2018 11:34
[2018-09-11] MEDS ORDERED: HEParin 1000 UNIT/ML (10ML VIAL) FOR BOLUS ONE (12:12)
[2018-09-11] MEDS ORDERED: NITRO DRIP 25000 MCG/D5W 250 ML IV ONE (12:12)
[2018-09-11] MEDS ORDERED: ASPIRIN 325 MG (5 GR) TABLET ONE (12:24)
[2018-09-11] MEDS ORDERED: TICAGRELOR 90 MG TABLET (BRILINTA) PO ONE (12:25)
[2018-09-11] MEDS ORDERED: RT-ALBUTEROL SULF 2.5 MG/3 ML PRE-MIX VIAL INH PRN (12:30)
[2018-09-11] MEDS ORDERED: PATIENT MAY USE OWN MEDS, ALL PO SCH (12:30)
[2018-09-11] MEDS ORDERED: NON-FORMULARY MEDICATION 1 EA EA (Topiramate 100 MG) PO PRN (12:30)
--- NOTE | 2018-09-11 12:38 | Cardiac Cath Report ---
Cardiac Cath Report Physician (s)/Anatomy Professor (s) Physician CAR GASTON MD Pre-Procedure Diagnosis Pre-Procedure Diagnosis: coronary artery disease Post-Procedure Note Procedure Start Date: Sep 11, 2018 Name of Procedure: left heart catheterization Stent to the right coronary artery Findings/Procedure Note PROCEDURE NOTE: After explaining the procedure to the patient, all pros and cons were explained , all questions were answered. The patient signed the consent and then she was placed on the cardiac catheterization laboratory. Groin was prepped SL fashion local anesthesia was used. Sheath placed in the right femoral artery. Niurka right and left catheter were used to access the coronary system. Pigtail was used to access the left ventricular cavity. Left ventriculogram was not done, pressure was measured Patient was given 5000 units of heparin, if our guide was advanced to the right coronary artery, patient has severe stenosis in the midright coronary artery, BMW wire was advanced and parked distally predilatation with 3.5 time 12 mm balloon then deployment of Mary Ann 3.5 time 18 mm done under 15 tomás expanding the stent to 3.65 millimeters with excellent results. At the end of the procedure the sheath was removed. Closure device was used FINDINGS: Hemodynamics LV 113/10, end-diastolic pressure of 10 Aorta 126/61 mean of 67 ANATOMY: Left Main is free of obstructive disease Left Anterior Descending has mild disease at the mid portion nonobstructive disease Left Circumflex has mild disease nonobstructive disease Right Coronory Artery is large dominant artery with severe stenosis at the midportion successful balloon angioplasty then deployment of Mary Ann 3.5 x 18 mm stent expanded to 3.65 mm with excellent results LV Gram was not done, pressure was measured CONCLUSION: 1. Severe midright coronary artery stenosis successful deployment of 3.5 x 18 mm Mary Ann stent expanded to 3.65 mm with good results 2. Mild disease at the mid LAD nonobstructive disease 3. Normal left ventricular end-diastolic pressure DISCUSSION AND RECOMMENDATION: Patient was loaded with aspirin and Brilinta, started on Lipitor due to mild elevation in lipids and added Protonix Anesthesia Type: Conscious Sedation Estimated blood loss (mL): 25 ml Contrast Amount: 80 ml Total Radiation Dose: 530 mGy Post-Procedure Diagnosis Post-operative diagnosis: Coronary artery disease Hyperlipidemia Hypothyroidism Syncope CAR GASTON MD Sep 11, 2018 12:38
[2018-09-11] MEDS ORDERED: PANTOPRAZOLE 40 MG (PROTONIX) TAB PO NR (13:45)
[2018-09-11] MEDS ORDERED: toPIRamate 100 MG (TOPAMAX) TAB PO PRN (14:00)
[2018-09-11] MEDS: NS IV 1000 ML 1,000 ML IV SCH (14:00)
--- NOTE | 2018-09-11 19:00 | NUR ---
THIS NURSE ET ONCOMING NURSE WENT TO ASSESS PT CATH SITE FOR SHIFT REPORT. NOTED BRUISING TO UPPER PART OF BANDAGE, UPON PALPITATION AREA FELT SOFT. MEMO RN/HANDLE TURNER BROUGHT IN TO ASSESS AREA, BRUISING WAS NOT NOTED IN PREVIOUS GROIN CHECKS. UPON REMOVAL OF PRESSURE DRESSING, SMALL AREA NOTED UNDER SKIN DURING PALPITATION. PRESSURE HELD FOR 10 MINUTES BY THIS RN. DRESSING CHANGED. SITE CHECKED BY ELAINE CORRIGAN ET HANDLE TURNER, NO AREA NOTED. PT PLACED BACK ON BEDREST AT THIS TIME ET SAND BAGS APPLIED TO GROIN.
[2018-09-11] MEDS ORDERED: ACETAZOLAMIDE 250 MG PO SCH (21:00)
[2018-09-11] MEDS ORDERED: ATORVASTATIN 10 MG (LIPITOR) TABLET PO SCH (21:00)
[2018-09-11] MEDS ORDERED: acetaZOLAMIDE 250 MG (DIAMOX) TAB PO SCH (21:00)
[2018-09-11] MEDS ORDERED: MONTELUKAST 10 MG (SINGULAIR) TAB PO SCH (21:00)
[2018-09-11] MEDS: TICAGRELOR 90 MG TABLET (BRILINTA) PO SCH (22:01)
[2018-09-12 00:25] VITALS: BP 137/84
[2018-09-12] MEDS: NS IV 1000 ML 1,000 ML IV SCH (02:11)
[2018-09-12 03:53] LABS: MEAN PLATELET VOLUME 10.5 FL (7.4-10.4); RED CELL DISTRIBUTION WIDTH 13.3 % (10.0-14.5); WHITE BLOOD COUNT 8.8 10^3/uL (4.3-11.0)
[2018-09-12 04:00] VITALS: BP 137/89
[2018-09-12 04:19] LABS: BUN/CREATININE RATIO 22; CALCIUM 8.3 MG/DL (8.5-10.1); CARBON DIOXIDE 17 MMOL/L (21-32); CHLORIDE 117 MMOL/L (98-107); CREATININE SERUM 0.78 MG/DL (0.60-1.30); GFR ESTIMATED > 60; GLUCOSE 97 MG/DL (70-105); POTASSIUM 3.6 MMOL/L (3.6-5.0); SODIUM 140 MMOL/L (135-145)
[2018-09-12] MEDS ORDERED: LEVOTHYROXINE 100 MCG (LEVOTHROID) TAB PO SCH (06:30)
[2018-09-12] MEDS ORDERED: KCL 8 MEQ (MICRO K) TABLET PO SCH (07:00)
[2018-09-12] MEDS ORDERED: PANTOPRAZOLE 40 MG (PROTONIX) TAB PO SCH (07:00)
--- NOTE | 2018-09-12 07:16 | Cardiology Progress Note ---
Subjective Date Seen by Provider: Sep 12, 2018 Time Seen by Provider: 07:14 Subjective/Events-last exam patient is feeling better, recovered well, groin is healing well, no chest pain Review of Systems General: No Chills, No Night Sweats, No Fatigue, No Malaise, No Appetite, No Other HEENT: No Head Aches, No Visual Changes, No Eye Pain, No Ear Pain, No Dysphasia , No Sinus Congestion, No Post Nasal Drip, No Sore Throat, No Other Pulmonary: No Dyspnea, No Cough, No Pleuritic Chest Pain, No Other Cardiovascular: No: Chest Pain, Palpitations, Orthopnea, Paroxysmal Noc. Dyspnea, Edema, Lt Headedness, Other Objective-Cardiology Exam Last Set of Vital Signs Vital Signs 09/12/18 04:00 Temp 97.2 Pulse 56 Resp 20 B/P (MAP) 137/89 (105) Pulse Ox 94 O2 Delivery Room Air Capillary Refill : Less Than 3 Seconds I&O Intake and Output 09/12/18 00:00 Intake Total 400 ml Output Total 300 ml Balance 100 ml Intake Oral 400 ml Output Urine Total 300 ml # Voids 2 General: Alert, Oriented X3, Cooperative HEENT: Atraumatic, PERRLA Neck: Supple, No JVD, No Thyromegaly Lungs: Clear to Auscultation, Normal Air Movement Heart: Regular Rate, Normal S1, Normal S2, No Murmurs Abdomen: Normal Bowel Sounds, Soft, No Tenderness, No Hepatosplenomegaly, No Masses Extremities: No Clubbing, No Cyanosis, No Edema, Normal Pulses, No Tenderness/ Swelling Skin: No Rashes, No Breakdown, No Significant Lesion Neuro: Normal Gait, Normal Speech, Strength at 5/5 X4 Ext, Normal Tone, Sensation Intact Psych/Mental Status: Mental Status NL, Mood NL Results Lab Laboratory Tests 09/11/18 08:52 09/12/18 03:35 A/P-Cardiology Admission Diagnosis Chest pain Coronary artery disease Hypertension Hyperlipidemia Assessment/Plan Chest pain, shortness of breath reporting improvement Coronary artery disease status post stent to the right coronary artery 1. Severe midright coronary artery stenosis successful deployment of 3.5 x 18 mm Mary Ann stent expanded to 3.65 mm with good results 2. Mild disease at the mid LAD nonobstructive disease 3. Normal left ventricular end-diastolic pressure Hypertension, good control, continue to monitor Mild hyperlipidemia started on Lipitor Patient was educated on the importance of compliance with medicat CAR GASTON MD Sep 12, 2018 07:16
[2018-09-12] MEDS ORDERED: ASPI-983 PO (07:18)
[2018-09-12] MEDS ORDERED: TICA90TA PO (07:18)
[2018-09-12] MEDS ORDERED: PANT40TA3 PO (07:18)
[2018-09-12] MEDS ORDERED: ATOR10TA66 PO (07:18)
--- NOTE | 2018-09-12 07:19 | Discharge Inst-Post CATH ---
Discharge Inst-CATH/EP Post Cardiac Cath/EP D/C Inst Follow Up/Plan Appointment with Dr. García's office in 2-4 weeks CARDIAC CATH DISCHARGE INSTRUCTIONS *Hold Metformin for 48 hours post heart cath. ACTIVITY * Go Home directly and rest. * Limit activity of the leg (or wrist if it was used) for 7 days including aerobics, swimming, jogging, bicycling, etc. * Restrict stair-climbing for 7 days if possible, if not, climb up with your non -cath leg, then bring together on the same step. * Avoid lifting, pushing, pulling or excessive movement of the affected extremity for 7 days. * Customary sexual activity may be resumed after 2 days-use caution not to use a position that strains or causes pain to the affected extremity. * No driving for 24 hours. * NO SMOKING. * Avoid straining for bowel movements for 7 days. * Gentle walking on level ground is allowed. * Returning to work will depend on the type of procedure and the results. Your doctor will discuss this with you. CALL YOUR DOCTOR FOR ANY OF THE FOLLOWING: *If bleeding from the puncture site occurs- Apply gentle pressure to site with clean cloth and call your doctor or EMS. * If a knot or lump forms under the skin, increases in size, or causes pain. * If bruising appears to be worsening or moving further down your leg instead of disappearing. * Temperature above 101 F. CARE OF YOUR GROIN INCISION; * Bruising or purple discoloration of the skin near the puncture site is common. * You may shower only, no bathtub bathing for 5 days. Be careful to avoid slipping as your leg may feel stiff. * If a closure device was used on your femoral artery, please see the attached guide regarding care of the device and your leg. * Leave the dressing on, until removed by office staff. CARE OF YOUR WRIST INCISION; * Bruising or purple discoloration of the skin near the puncture site is common. * You may shower. * DO NOT submerge wrist. * Leave dressing on, until removed by office staff.. CAR GARCÍA MD Sep 12, 2018 07:19
[2018-09-12] MEDS ORDERED: RT-ADVAIR HFA 115/21 MCG PER PUFF IH SCH (08:00)
--- NOTE | 2018-09-12 08:09 | NUR ---
Pt states she will take her home morning medications when she gets home so there is no confusion on which meds given. This RN will give am Brilinta to curb any trouble with filling the Brilinta script.
--- NOTE | 2018-09-12 08:11 | NUR ---
Pt states she already has a follow up appt with Dr. García on Oct 04.
[2018-09-12] MEDS: TICAGRELOR 90 MG TABLET (BRILINTA) PO SCH (08:43)
[2018-09-12] MEDS ORDERED: [UNRECOGNIZED DRUG - OTHER] IH SCH (09:00)
[2018-09-12] MEDS ORDERED: ASPIRIN E.C. 81 MG (ECOTRIN) TAB PO SCH (09:00)
[2018-09-12] MEDS ORDERED: FUROSEMIDE 40 MG (LASIX) TAB PO SCH (09:00)
[2018-09-12] MEDS ORDERED: NON-FORMULARY MEDICATION 1 EA EA (Potassium Chloride 8 MEQ) PO SCH (09:00)
[2018-09-15] MEDS ORDERED: NON-FORMULARY MEDICATION 1 EA EA (Alendronate Sodium 70 MG) PO SCH (12:30)
== END 2018-09-12 08:58 | disposition home or self-care (01) ==
LOC: CATH 08:11 → ICU 12:55 → CATH 09-12 08:58
PROVIDERS: ATTEND Internal Medicine Cardiovascular Disease
DX: I25.10 Atherosclerotic heart disease of native coronary artery without angina pectoris (principal); E78.5 Hyperlipidemia, unspecified; E03.9 Hypothyroidism, unspecified; R55 Syncope and collapse; M54.2 Cervicalgia; R09.89 Other specified symptoms and signs involving the circulatory and respiratory systems; M79.7 Fibromyalgia; M54.6 Pain in thoracic spine; Z88.0 Allergy status to penicillin; Z87.891 Personal history of nicotine dependence; Z82.49 Family history of ischemic heart disease and other diseases of the circulatory system
CPT/HCPCS: 36415; 71045; 80048; 80053; 80061; 81000; 85027; 85610; 85730; 87081; 93458

== ENCOUNTER 2018-11-20 08:00 | Outpatient (RCR) | payer MEDICARE ==
[~2018-11-20 08:00] MED LIST changes: +ACET250T3 PO; +ASPI-983 PO; +ATOR10TA66 PO; +CHOL500049 PO; +PANT40TA3 PO; +RT-ALBUINH INH; +TICA90TA PO
[2018-12-26] MEDS ORDERED: CLOP75TA28 PO (13:35)
[2018-12-26] MEDS ORDERED: ATOR10TA66 PO (13:35)
[2018-12-26] MEDS ORDERED: PANT40TA3 PO (13:35)
[2018-12-26] MEDS ORDERED: ASPI-983 PO (13:35)
[2019-01-01] MEDS ORDERED: HYDR-3816 PO (10:28)
== END 2019-01-26 | disposition home or self-care (01) ==
LOC: CR 08:00
PROVIDERS: ATTEND Internal Medicine Cardiovascular Disease
DX: Z48.812 Encounter for surgical aftercare following surgery on the circulatory system (principal); Z95.5 Presence of coronary angioplasty implant and graft
CPT/HCPCS: 93798

== ENCOUNTER → 2018-12-19 | Outpatient (CLI) | payer MEDICARE ==
[2018-12-19 08:13] LABS: ALANINE AMINOTRANSFERASE 16 U/L (0-55); ALKALINE PHOSPHATASE 71 U/L (40-136); BILIRUBIN,TOTAL 0.3 MG/DL (0.1-1.0); BUN/CREATININE RATIO 19; CARBON DIOXIDE 22 MMOL/L (21-32); CHLORIDE 109 MMOL/L (98-107); CHOLESTEROL 114 MG/DL (< 200); CREATININE SERUM 0.75 MG/DL (0.60-1.30); GFR ESTIMATED > 60; GLUCOSE 98 MG/DL (70-105); HDL CHOLESTEROL 34 MG/DL (40-60); POTASSIUM 3.9 MMOL/L (3.6-5.0); SODIUM 141 MMOL/L (135-145); TOTAL PROTEIN 6.5 GM/DL (6.4-8.2); TRIGLYCERIDES 120 MG/DL (<150); VLDL CHOLESTEROL 24 MG/DL (5-40)
== END ==
LOC: LAB 07:37
PROVIDERS: ATTEND Internal Medicine Cardiovascular Disease
DX: I25.10 Atherosclerotic heart disease of native coronary artery without angina pectoris (principal); E78.2 Mixed hyperlipidemia; M54.2 Cervicalgia; M54.6 Pain in thoracic spine
CPT/HCPCS: 36415; 80053; 80061

== ENCOUNTER 2018-12-26 05:56 | Outpatient (CLI) | payer MEDICARE ==
[~2018-12-26] VITALS: Ht 175.3 cm; Wt 83.5 kg
[2018-12-26] MEDS ORDERED: ATOR10TA66 PO (13:35)
[2018-12-26] MEDS ORDERED: ASPI-983 PO (13:35)
[2018-12-26] MEDS ORDERED: CLOP75TA28 PO (13:35)
[2018-12-26] MEDS ORDERED: PANT40TA3 PO (13:35)
== END 2018-12-26 13:42 | disposition home or self-care (01) ==
LOC: PREOP 05:56
PROVIDERS: ATTEND Orthopaedic Surgery
DX: Z01.818 Encounter for other preprocedural examination (principal)

== ENCOUNTER 2019-01-01 07:00 | Day surgery (SDC) | payer MEDICARE ==
--- NOTE | 2018-12-23 12:29 | HISTORY AND PHYSICAL ---
DATE OF SERVICE: ADMISSION HISTORY AND PHYSICAL DATE OF ADMISSION: 01/01/2019. This will be for outpatient surgery on 01/01/2019 for left knee arthroscopy. HISTORY OF PRESENT ILLNESS: The patient is a 68-year-old female with complaints of left medial knee pain, catching, locking and swelling. She underwent MRI which shows a posterior horn medial meniscus tear. She previously had undergone an arthroscopy and had been doing well until she fell. She reports continued anterior medial knee pain. Due to functional impairment and failure to improve with conservative measures, the patient has elected to proceed with surgical intervention. REVIEW OF SYSTEMS: No chest pain or shortness of breath. No dysuria. PAST MEDICAL HISTORY: Asthma, fibromyalgia, reflux, hypertension, osteoporosis, hiatal hernia, sinusitis. PAST SURGICAL HISTORY: Herniorrhaphy, right total knee arthroplasty, left knee arthroscopy, partial hysterectomy, cholecystectomy, appendectomy, coronary stent. FAMILY HISTORY: Significant for cancer. PRIMARY CARE PROVIDER: Dr. White. GEOSPATIAL SYSTEMS INTEGRATOR: Dr. García. MEDICATIONS: Lasix, Singulair, potassium, Vimovo, Lyrica, alendronate, aspirin, Breo Ellipta, hydrocodone, Sudafed and an anticoagulant. ALLERGIES: PENICILLIN, AZITHROMYCIN. SOCIAL HISTORY: The patient denies alcohol use. She is a former smoker. Radiographs revealed mild medial joint space narrowing. PHYSICAL EXAMINATION: GENERAL: The patient is well developed, well-nourished, in no acute distress. HEENT: Normocephalic, atraumatic. Pupils are equal, round and reactive to light. Oropharynx is clear. NECK: Supple. No lymphadenopathy. LUNGS: Clear to auscultation bilaterally. HEART: Regular rate and rhythm. ABDOMEN: Soft, nontender, nondistended. EXTREMITIES: Left knee demonstrates moderate effusion. She is tender along the medial joint line. She has pain in the knee with Norman. There is patellofemoral crepitus noted. Range of motion is 0/0/130. No varus or valgus laxity. Negative anterior and posterior drawer. IMPRESSION: Left knee medial meniscus tear with chondromalacia. PLAN: Left knee arthroscopy with partial medial meniscectomy, chondroplasty. The risks, benefits, options, ramifications and recovery were discussed at length with the patient, she understands and wishes to proceed. Job ID: [id number] DocumentID: [id number] Dictated Date: 12/23/2018 11:34:36 Boot And Shoe Laborer Date: 12/23/2018 12:28:31 Dictated By: RON HERCULES MD
[~2019-01-01] VITALS: Ht 175.3 cm; Wt 83.5 kg
[~2019-01-01 07:00] MED LIST changes: +CLOP75TA28 PO
[2019-01-01] MEDS ORDERED: LACTATED RINGERS 1,000 ML IV PRN (07:11)
[2019-01-01] MEDS ORDERED: CLINDAMYCIN 600 MG/50 ML IVPB 50 ML IV ONE (07:15)
[2019-01-01 07:20] VITALS: BP 128/83
[2019-01-01] MEDS ORDERED: BUPIVACAINE 0.25% 30 ML (SENSORCAINE) VIAL ONE (07:21)
[2019-01-01] MEDS ORDERED: morphine PF (DURAMORPH) 10 MG/10 ML AMP ONE (07:21)
--- NOTE | 2019-01-01 07:26 | Progress Note-Pre Operative ---
Pre-Operative Progress Note H&P Reviewed The H&P was reviewed, patient examined and no changes noted. Date Seen by Provider: January 01, 2019 Time Seen by Provider: 07:25 Date H&P Reviewed: January 01, 2019 Time H&P Reviewed: 07:25 Pre-Operative Diagnosis: let knee medial meniscus tear and chondromalacia of the patella RON HERCULES MD January 01, 2019 07:26
--- NOTE | 2019-01-01 07:28 | Progress Note-Post Operative ---
Post-Operative Progess Note Surgeon (s)/Agricultural Adviser (s) Surgeon RON HERCULES MD Agricultural Adviser: Jerome Velazco Pre-Operative Diagnosis let knee medial meniscus tear and chondromalacia of the patella Post-Operative Diagnosis left knee medial and lateral meniscus tears and chondromalacia of the patella of the medial femoral condyle Procedure & Operative Findings Date of Procedure 01/01/19 Procedure Performed/Findings left knee arthroscopic partial medial and lateral meniscectomies and chondroplasty of the patella of the medial femoral condyle Anesthesia Type GETA Estimated Blood Loss Estimated blood loss (mL): minimal Specimens/Packing Specimens Removed none Packing: none RON HERCULES MD January 01, 2019 07:27
[2019-01-01] MEDS ORDERED: HYDROcodone/APAP 7.5 MG/325 MG (LORTAB, LORCET PLUS) TABLET PO PRN (07:30)
[2019-01-01] MEDS ORDERED: LIDOCAINE PF 2% 5 ML (XYLOCAINE) VIAL ONE (08:18)
[2019-01-01] MEDS ORDERED: proPOfol 200 MG/20 ML (DIPRIVAN) VIAL IV ONE (08:18)
[2019-01-01] MEDS ORDERED: fentaNYL INJECTION 100 MCG/2 ML AMP ONE (08:18)
[2019-01-01] MEDS ORDERED: ONDANSETRON 4 MG/2 ML (SDV) Z0FRAN ONE (08:18)
[2019-01-01] MEDS ORDERED: SEVOFLURANE (ULTANE) 15 ML INHAL SOLN ONE (08:18)
[2019-01-01] MEDS ORDERED: MIDAZOLAM 2 MG/2 ML (VERSED) VIAL ONE (08:18)
[2019-01-01] MEDS ORDERED: DEXAMETHASONE 10 MG/ML (DECADRON) 1 ML VIAL ONE (08:18)
[2019-01-01 09:36] VITALS: BP 138/86
[2019-01-01] MEDS ORDERED: morphine INJ 10 MG/ML 1ML (SYR OR VIAL) IVP ONE (09:45)
[2019-01-01] MEDS ORDERED: ONDANSETRON 4 MG/2 ML (SDV) Z0FRAN IVP PRN (09:45)
[2019-01-01 09:50] VITALS: BP 130/82
[2019-01-01 10:05] VITALS: BP 145/85
[2019-01-01 10:20] VITALS: BP_SYST 108; BP_SYST 96; BP_DIAS 51; BP_DIAS 75
[2019-01-01] MEDS ORDERED: HYDR-3816 PO (10:28)
[2019-01-01 10:50] VITALS: BP 108/75
--- NOTE | 2019-01-01 11:13 | Physical Therapy Progress Note ---
Therapy Progress Note Pt reports she has had knee surgeries in the past and feels confident with the exercises and with ambulation. Reports she has 3 porch steps and 16 steps in her home. Reviewed exercises, pt voiced understanding. Pt ambulated with a single crutch 150 ft and up/down a curb step x 2 all without assist; she did require verbal reminders for sequencing on the steps but was able to complete without difficulty. Pt safe with ambulation and has pictures of HEP> No charge, visit only. AHSAN LLOYD PT January 01, 2019 11:13
--- NOTE | 2019-01-01 12:35 | Anesthesia-General Post-Op ---
General Patient Condition Mental Status/LOC: Same as Preop Cardiovascular: Satisfactory Nausea/Vomiting: Absent Respiratory: Satisfactory Pain: Controlled Complications: Absent Post Op Complications Complications None Follow Up Care/Instructions Patient Instructions None needed. Anesthesia/Patient Condition Patient Condition Patient is doing well, no complaints, stable vital signs, no apparent adverse anesthesia problems. No complications reported per nursing. WILFRIDO TYSON CRNA January 01, 2019 12:35
--- NOTE | 2019-01-01 13:26 | OPERATIVE REPORT ---
DATE OF SERVICE: 01/01/2019 PREOPERATIVE DIAGNOSES: 1. Left knee medial meniscus tear. 2. Left knee chondromalacia patella. POSTOPERATIVE DIAGNOSES: 1. Left knee medial meniscus tear. 2. Left knee chondromalacia patella. 3. Left knee lateral meniscus tear. 4. Left knee chondromalacia of the medial femoral condyle. PROCEDURES: 1. Left knee arthroscopic partial medial meniscectomy. 2. Left knee arthroscopic partial lateral meniscectomy. 3. Left knee arthroscopic chondroplasty of the patella. 4. Left knee arthroscopic chondroplasty of the medial femoral condyle. SURGEON: Ra Hercules MD. MILITARY EQUIPMENT SPECIALIST: Jerome Link, who assisted throughout the procedure and closed the incisions. ANESTHESIA: General endotracheal by Lilliam Us CRNA. TOURNIQUET TIME: Not applicable. ESTIMATED BLOOD LOSS: Minimal. DRAINS: None. COMPLICATIONS: None. POSTOPERATIVE PLAN: Routine arthroscopy protocol. STATEMENT OF MEDICAL NECESSITY: The patient is a 68-year-old female with complaints of left medial and anterior knee pain. She was tender along the medial joint line. She had pain medially with Norman's. An MRI revealed a posterior horn medial meniscus tear as well as chondromalacia of the patellofemoral joint and due to functional impairment and failure to improve with conservative measures, the patient elected to proceed with surgical intervention. Examination under anesthesia revealed range of motion of 0/0/135 with negative Eliezer, negative anterior and posterior drawer. No varus or valgus laxity, negative pivot shift. Arthroscopic findings demonstrated grade II chondral flaps on the central portion of the patella in a 10 x 10 area. Trochlea demonstrated no gross chondral abnormalities. Medial and lateral gutters were clear. The lateral compartment demonstrated a tear of the posterior horn of the lateral meniscus from approximately 1/3 of the posterior horn. No chondral pathology was noted. The ACL and PCL were intact. The medial compartment demonstrated a horizontal cleavage tear of the posterior horn of the medial meniscus from approximately 1/3 of the posterior horn. In addition, there were grade II chondral flaps in the central portion of femoral condyle in a 15 x 15 area. DESCRIPTION OF PROCEDURE: After risks and benefits of procedure were discussed and questions were answered, an informed consent was signed and placed on chart. The operative site was confirmed in the preoperative holding area initialed by the surgeon. The patient was then transferred to the operating room. After adequate levels of general endotracheal anesthetic were obtained, a timeout was called confirming the operative site. Examination under anesthesia was performed with the above findings noted. The left lower extremity was prepped and draped in the usual sterile fashion. The knee joint was injected with 60 mL of fluid. A standard inferolateral portal was placed with the arthroscope under direct visualization. An inferior medial portal was created. The menisci and cruciates were carefully probed with the above findings noted. The unstable chondral flaps on the patella were debrided with shaver back to a stable edge. The scope was redirected into the lateral compartment and the posterior horn of the lateral meniscus was debrided with the biter and shaver approximately 1/3 of the posterior horn. This was carefully probed. No further tearing or instability noted. The scope was then redirected into the medial compartment where the unstable chondral flaps from the medial femoral condyle were debrided with shaver back to a stable edge and the medial meniscus tear was debrided with the biter and shaver, removed approximately 1/2 of the remaining posterior horn. This was carefully probed with no further tearing or instability noted. Knee was copiously irrigated. Portal sites were closed with 4-0 nylon in simple interrupted fashion. The knee was injected with Duramorph. The portal sites were infiltrated with plain Marcaine. A soft dressing was applied and the patient was transferred to the recovery room awake and in stable condition. Job ID: [id number] DocumentID: [id number] Dictated Date: 01/01/2019 09:39:39 Certified Detention Deputy Date: 01/01/2019 13:25:50 Dictated By: RA HERCULES MD
== END 2019-01-01 11:00 | disposition home or self-care (01) ==
LOC: SDC 07:00
PROVIDERS: ATTEND Orthopaedic Surgery
DX: M23.352 Other meniscus derangements, posterior horn of lateral meniscus, left knee (principal); M23.322 Other meniscus derangements, posterior horn of medial meniscus, left knee; M22.42 Chondromalacia patellae, left knee; Z11.2 Encounter for screening for other bacterial diseases; J45.909 Unspecified asthma, uncomplicated; M79.7 Fibromyalgia; K21.9 Gastro-esophageal reflux disease without esophagitis; I10 Essential (primary) hypertension; K44.9 Diaphragmatic hernia without obstruction or gangrene; M81.0 Age-related osteoporosis without current pathological fracture; J44.9 Chronic obstructive pulmonary disease, unspecified; E78.5 Hyperlipidemia, unspecified; Z95.5 Presence of coronary angioplasty implant and graft; Z96.651 Presence of right artificial knee joint; Z79.899 Other long term (current) drug therapy; Z87.891 Personal history of nicotine dependence; Z79.82 Long term (current) use of aspirin; Z79.01 Long term (current) use of anticoagulants; Z88.0 Allergy status to penicillin; Z88.1 Allergy status to other antibiotic agents
CPT/HCPCS: 87081

== ENCOUNTER 2019-02-20 01:06 | Emergency (ER) | payer MEDICARE ==
[~2019-02-20] VITALS: Ht 175.3 cm; Wt 83.5 kg
--- OUTSIDE RECORDS SUMMARY | 2019-02-20 01:12 | XMS REPORT | Continuity of Care Document ---
Author Organization Unknown Address Unknown Allergies Active Description Code Type Severity Reaction Onset Reported/Identified Relationship to Patient Clinical Status Yes Penicillins [id number] Drug Allergy Unknown N/A 08/25/2010 Yes erythromycin base [id number] Drug Allergy Moderate HIVES 12/28/2015 Yes Penicillins [id number] Drug Allergy Unknown FROM CHILDHOOD 12/28/2015 Yes gluten [id number] Drug Allergy Unknown N/A 06/13/2017 Yes gluten [id number] Drug Allergy Mild HEADACHES 05/23/2018 Medications There [...] V57.1 PHYSICAL THERAPY NEC 02/05/2015 TAMMY POWELL Ot 786.05 02/05/2015 TAMMY POWELL Ot 786.50 12/28/2015 DANIEL ZAPATA MD, Ot K21.9 GASTRO-ESOPHAGEAL REFLUX DISEASE WITHOUT 12/28/2015 [...] Ot 490 BRONCHITIS NOS 03/13/2016 VANTAMMY KOWALSKI M OVERHEAD DISTRIBUTION ENGINEER Ot 786.2 COUGH 03/13/2016 TAMMY POWELL M OVERHEAD DISTRIBUTION ENGINEER Ot 729.5 PAIN IN LIMB 03/13/2016 FLORIDALMA WHITE MD Ot 562.10 DIVERTICULOSIS COLON (W/O MENT OF HEMORR 03/13/2016 FLORIDALMA WHITE MD Ot 599.0 URIN TRACT INFECTION NOS 03/13/2016 FLORIDALMA WHITE MD Ot V13.01 PERSONAL HISTORY OF URINARY CALCULI 03/13/2016 Ot 496 CHR AIRWAY OBSTRUCT NEC 03/13/2016 TAMMY POWELL [place] OVERHEAD DISTRIBUTION ENGINEER Ot 786.05 SHORTNESS OF BREATH 03/13/2016 ANDRE TAMMY M OVERHEAD DISTRIBUTION ENGINEER Ot 786.50 CHEST PAIN NOS 03/14/2016 JULES FONSECA ROTARY FURNACE TENDER Ot J44.9 CHRONIC OBSTRUCTIVE PULMONARY DISEASE, U 03/14/2016 JULES FONSECA ROTARY FURNACE TENDER Ot R05 COUGH 04/07/2016 JULES FONSECA ROTARY FURNACE TENDER Ot J44.9 CHRONIC OBSTRUCTIVE PULMONARY DISEASE, U 04/07/2016 JULES FONSECA ROTARY FURNACE TENDER Ot R05 COUGH 04/25/2017 VANTAMMY KOWALSKI OVERHEAD DISTRIBUTION ENGINEER Ot 786.2 COUGH 04/25/2017 ANDRE TAMMY M OVERHEAD DISTRIBUTION ENGINEER Ot 729.5 PAIN IN LIMB 04/25/2017 CHRISTOPHER JONES, FLORIDALMA Edwards Ot 562.10 DIVERTICULOSIS COLON (W/O MENT OF HEMORR 04/25/2017 CHRISTOPHER JONES, FLORIDALMA Edwards Ot 599.0 URIN TRACT INFECTION NOS 04/25/2017 CHRISTOPHER JONES, FLORIDALMA Edwards Ot V13.01 PERSONAL HISTORY OF URINARY CALCULI 04/25/2017 Ot 496 CHR AIRWAY OBSTRUCT NEC 04/25/2017 ANDRE TAMMY [place] OVERHEAD DISTRIBUTION ENGINEER Ot 786.05 SHORTNESS OF BREATH 04/25/2017 ANDRE TAMMY M OVERHEAD DISTRIBUTION ENGINEER Ot 786.50 CHEST PAIN NOS 04/25/2017 JULES FONSECA ROTARY FURNACE TENDER Ot J44.9 CHRONIC OBSTRUCTIVE PULMONARY DISEASE, U 04/25/2017 JULES FONSECA ROTARY FURNACE TENDER Ot R05 COUGH 06/01/2017 RON HERCULES MD Ot Z96.651 PRESENCE OF RIGHT ARTIFICIAL KNEE JOINT 06/13/2017 RON HERCULES MD, Ot M25.361 OTHER INSTABILITY, RIGHT KNEE 06/13/2017 RON HERCULES MD Ot R53.83 OTHER FATIGUE 06/13/2017 RON HERCULES MD, Ot Z01.811 ENCOUNTER FOR PREPROCEDURAL RESPIRATORY 06/13/2017 RON HERCULES MD Ot Z01.812 ENCOUNTER FOR PREPROCEDURAL LABORATORY E 06/13/2017 RON HERCULES MD, Ot Z01.812 ENCOUNTER FOR PREPROCEDURAL LABORATORY E 06/22/2017 ZAFUTA MD, RON P Ot F32.9 MAJOR DEPRESSIVE DISORDER, SINGLE EPISOD [...] RIGHT ARTIFICIAL KNEE JOINT 08/14/2017 RON HERCULES MD, Ot M25.461 EFFUSION, RIGHT KNEE 08/14/2017 RON HERCULES MD Ot Z96.651 PRESENCE OF RIGHT ARTIFICIAL KNEE JOINT 05/23/2018 RON HERCULES MD, Ot Z01.818 ENCOUNTER FOR OTHER PREPROCEDURAL EXAMIN 05/24/2018 RON HERCULES MD, Ot Z01.818 ENCOUNTER FOR OTHER PREPROCEDURAL EXAMIN 05/29/2018 TAMMY POWELL OVERHEAD DISTRIBUTION ENGINEER Ot 786.2 COUGH 05/29/2018 ANDRE TAMMY M OVERHEAD DISTRIBUTION ENGINEER Ot 729.5 PAIN IN LIMB 05/29/2018 FLORIDALMA WHITE MD Ot 562.10 DIVERTICULOSIS COLON (W/O MENT OF HEMORR 05/29/2018 FLORIDALMA WHITE MD Ot 599.0 URIN TRACT INFECTION NOS 05/29/2018 FLORIDALMA WHITE MD Ot V13.01 PERSONAL HISTORY OF URINARY CALCULI 05/29/2018 Ot 496 CHR AIRWAY OBSTRUCT NEC 05/29/2018 TAMMY POWELL OVERHEAD DISTRIBUTION ENGINEER Ot 786.05 SHORTNESS OF BREATH 05/29/2018 TAMMY POWELL OVERHEAD DISTRIBUTION ENGINEER Ot 786.50 CHEST PAIN NOS 05/29/2018 JULES FONSECA ROTARY FURNACE TENDER Ot J44.9 CHRONIC OBSTRUCTIVE PULMONARY DISEASE, U 05/29/2018 JULES FONSECA ROTARY FURNACE TENDER Ot R05 COUGH 05/29/2018 RON HERCULES MD, Ot Z96.651 PRESENCE OF RIGHT ARTIFICIAL KNEE JOINT 05/29/2018 RON HERCULES MD, Ot F17.210 NICOTINE DEPENDENCE, CIGARETTES, UNCOMPL 05/29/2018 RON HERCULES MD, Ot J44.9 CHRONIC OBSTRUCTIVE PULMONARY DISEASE, U 05/29/2018 RON HERCULES MD, Ot J45.909 UNSPECIFIED ASTHMA, UNCOMPLICATED 05/29/2018 RON HERCULES MD, Ot M22.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, LEFT KNEE 05/29/2018 RON HERCULES MD, Ot M23.222 DERANG OF POST HORN OF MEDIAL MENSC D/T 05/29/2018 RON HERCULES MD, Ot Z79.82 SAFETY INVESTIGATOR (CURRENT) USE OF ASPIRIN 05/29/2018 RON HERCULES MD, Ot Z79.899 OTHER SKILLED NURSING (CURRENT) DRUG THERAPY 06/03/2018 RON HERCULES MD, Ot F17.210 NICOTINE DEPENDENCE, CIGARETTES, UNCOMPL 06/03/2018 RON HERCULES MD, Ot J44.9 CHRONIC OBSTRUCTIVE PULMONARY DISEASE, U 06/03/2018 RON HERCULES MD, Ot J45.909 UNSPECIFIED ASTHMA, UNCOMPLICATED 06/03/2018 RON HECRULES MD, Ot M22.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, LEFT KNEE 06/03/2018 RON HERCULES MD, Ot M23.222 DERANG OF POST HORN OF MEDIAL MENSC D/T 06/03/2018 RON HERCULES MD, Ot Z79.82 SKILLED NURSING (CURRENT) USE OF ASPIRIN 06/03/2018 RON HERCULES MD, Ot Z79.899 OTHER SKILLED NURSING (CURRENT) DRUG THERAPY 07/17/2018 RON HERCULES MD, Ot S83.242A OTH TEAR OF MEDIAL MENISCUS, CURRENT INJ 07/17/2018 RON HERCULES MD, Ot Z98.890 OTHER SPECIFIED POSTPROCEDURAL STATES 07/25/2018 EVA WHITE DO Ot J44.9 CHRONIC OBSTRUCTIVE PULMONARY DISEASE, U 08/10/2018 RON HERCULES MD, Ot S83.242A OTH TEAR OF MEDIAL MENISCUS, CURRENT INJ 08/10/2018 RON HERCULES MD, Ot Z98.890 OTHER SPECIFIED POSTPROCEDURAL STATES 08/14/2018 PREET HANSON APRN Ot M47.816 SPONDYLOSIS W/O MYELOPATHY OR RADICULOPA 08/14/2018 PRETE HANSON APRN Ot M53.3 SACROCOCCYGEAL DISORDERS, NOT ELSEWHERE 08/14/2018 PREET HANSON APRN Ot W19.XXXA UNSPECIFIED FALL, INITIAL ENCOUNTER 08/14/2018 PREET HANSON APRN Ot Z90.49 ACQUIRED ABSENCE OF OTHER SPECIFIED PART 08/15/2018 EVA WHITE DO Ot J44.9 CHRONIC OBSTRUCTIVE PULMONARY DISEASE, U 08/21/2018 EVA WHITE DO Ot G93.89 OTHER SPECIFIED DISORDERS OF BRAIN 08/21/2018 EVA WHITE DO Ot S09.90XA UNSPECIFIED INJURY OF HEAD, INITIAL ENCO 08/21/2018 EVA WHITE DO Ot W19.XXXA UNSPECIFIED FALL, INITIAL ENCOUNTER 08/23/2018 RON HERCULES MD, Ot S83.242A OTH TEAR OF MEDIAL MENISCUS, CURRENT INJ 08/23/2018 RON HERCULES MD Ot Z98.890 OTHER SPECIFIED POSTPROCEDURAL STATES 08/29/2018 IGLESIAER EVA KERNS S Ot R01.1 CARDIAC MURMUR, UNSPECIFIED 08/29/2018 JONDER SHA KERNSLINE S Ot R06.00 DYSPNEA, UNSPECIFIED 08/29/2018 JONDER DOSHAEVA S Ot R55 SYNCOPE AND COLLAPSE 08/29/2018 JONDER DOTIARAEVA S Ot Z01.810 ENCOUNTER FOR PREPROCEDURAL CARDIOVASCUL 08/29/2018 SHA WHITE DOLINE S Ot Z82.49 FAMILY HX OF ISCHEM HEART DIS AND OTH DI 08/29/2018 SHA WHITE DOLINE S Ot J44.9 CHRONIC OBSTRUCTIVE PULMONARY DISEASE, U 09/09/2018 PREET HANSON APRN Ot M47.816 SPONDYLOSIS W/O MYELOPATHY OR RADICULOPA 09/09/2018 PREET HANSON APRN Ot M53.3 SACROCOCCYGEAL DISORDERS, NOT ELSEWHERE 09/09/2018 PREET HANSON APRN Ot W19.XXXA UNSPECIFIED FALL, INITIAL ENCOUNTER 09/09/2018 PREET HANSON APRN Ot Z90.49 ACQUIRED ABSENCE OF OTHER SPECIFIED PART 09/09/2018 CAR GASTON MD Ot I25.10 ATHSCL HEART DISEASE OF [place] CORONARY 09/09/2018 CAR GASTON MD Ot I34.0 NONRHEUMATIC MITRAL (VALVE) INSUFFICIENC 09/09/2018 CAR GASTON MD Ot M54.2 CERVICALGIA 09/09/2018 CAR GASTON MD Ot R07.9 CHEST PAIN, UNSPECIFIED 09/09/2018 CAR GASTON MD Ot R55 SYNCOPE AND COLLAPSE 09/12/2018 CAR GASTON MD Ot E03.9 HYPOTHYROIDISM, UNSPECIFIED 09/12/2018 CAR GASTON MD Ot E78.5 HYPERLIPIDEMIA, UNSPECIFIED 09/12/2018 CAR GASTON MD Ot I25.10 ATHSCL HEART DISEASE OF [place] CORONARY 09/12/2018 CAR GASTON MD Ot M54.2 CERVICALGIA 09/12/2018 CAR GASTON MD Ot M54.6 PAIN IN THORACIC SPINE 09/12/2018 CAR GASTON MD Ot M79.7 FIBROMYALGIA 09/12/2018 CAR GASTON MD Ot R09.89 OT SYMPTOMS AND SIGNS INVOLVING THE CIR 09/12/2018 CAR GASTON MD Ot R55 SYNCOPE AND COLLAPSE 09/12/2018 CAR GASTON MD Ot Z82.49 FAMILY HX OF ISCHEM HEART DIS AND OTH DI 09/12/2018 CAR GASTON MD Ot Z87.891 PERSONAL HISTORY OF NICOTINE DEPENDENCE 09/12/2018 CAR GASTON MD Ot Z88.0 ALLERGY STATUS TO PENICILLIN 09/12/2018 CAR GASTON MD Ot E03.9 HYPOTHYROIDISM, UNSPECIFIED 09/12/2018 CAR GASTON MD Ot E78.5 HYPERLIPIDEMIA, UNSPECIFIED 09/12/2018 CAR GASTON MD Ot I25.10 ATHSCL HEART DISEASE OF [place] CORONARY 09/12/2018 CAR GASTON MD Ot M54.2 CERVICALGIA 09/12/2018 CAR GASTON MD Ot M54.6 PAIN IN THORACIC SPINE 09/12/2018 CAR GASTON MD Ot M79.7 FIBROMYALGIA 09/12/2018 CAR GASTON MD Ot R09.89 OT SYMPTOMS AND SIGNS INVOLVING THE CIR 09/12/2018 CAR GASTON MD Ot R55 SYNCOPE AND COLLAPSE 09/12/2018 CAR GASTON MD Ot Z82.49 FAMILY HX OF ISCHEM HEART DIS AND OTH DI 09/12/2018 CAR GASTON MD Ot Z87.891 PERSONAL HISTORY OF NICOTINE DEPENDENCE 09/12/2018 CAR GASTON MD Ot Z88.0 ALLERGY STATUS TO PENICILLIN 09/17/2018 CAR GASTON MD Ot E03.9 HYPOTHYROIDISM, UNSPECIFIED 09/17/2018 CAR GASTON MD Ot E78.5 HYPERLIPIDEMIA, UNSPECIFIED 09/17/2018 CAR GASTON MD Ot I25.10 ATHSCL HEART DISEASE OF [place] CORONARY 09/17/2018 CAR GASTON MD Ot M54.2 CERVICALGIA 09/17/2018 CAR GASTON MD Ot M54.6 PAIN IN THORACIC SPINE 09/17/2018 CAR GASTON MD Ot M79.7 FIBROMYALGIA 09/17/2018 CAR GASTON MD Ot R09.89 OT SYMPTOMS AND SIGNS INVOLVING THE CIR 09/17/2018 CAR GASTON MD Ot R55 SYNCOPE AND COLLAPSE 09/17/2018 CAR GASTON MD Ot Z82.49 FAMILY HX OF ISCHEM HEART DIS AND OTH DI 09/17/2018 CAR GASTON MD Ot Z87.891 PERSONAL HISTORY OF NICOTINE DEPENDENCE 09/17/2018 CAR GASTON MD Ot Z88.0 ALLERGY STATUS TO PENICILLIN 09/20/2018 PREET HANSON APRN Ot M47.816 SPONDYLOSIS W/O MYELOPATHY OR RADICULOPA 09/20/2018 PREET HANSON APRN Ot M53.3 SACROCOCCYGEAL DISORDERS, NOT ELSEWHERE 09/20/2018 PREET HANSON APRN Ot W19.XXXA UNSPECIFIED FALL, INITIAL ENCOUNTER 09/20/2018 PREET HANSON APRN Ot Z90.49 ACQUIRED ABSENCE OF OTHER SPECIFIED PART 09/20/2018 JONDER DO, EVA S Ot R01.1 CARDIAC MURMUR, UNSPECIFIED 09/20/2018 JONDER DO, EVA S Ot R06.00 DYSPNEA, UNSPECIFIED 09/20/2018 JONDER DO, EVA S Ot R55 SYNCOPE AND COLLAPSE 09/20/2018 JONDER DO, EVA S Ot Z01.810 ENCOUNTER FOR PREPROCEDURAL CARDIOVASCUL 09/20/2018 JONDER DO EVA S Ot Z82.49 FAMILY HX OF ISCHEM HEART DIS AND OTH DI 09/24/2018 ORENDER DO, EVA S Ot G93.89 OTHER SPECIFIED DISORDERS OF BRAIN 09/24/2018 JONDER DO, EVA S Ot S09.90XA UNSPECIFIED INJURY OF HEAD, INITIAL ENCO 09/24/2018 JONDER DO, EVA S Ot W19.XXXA UNSPECIFIED FALL, INITIAL ENCOUNTER 09/26/2018 CAR GASTON MD Ot I25.10 ATHSCL HEART DISEASE OF [place] CORONARY 09/26/2018 CAR GASTON MD Ot I34.0 NONRHEUMATIC MITRAL (VALVE) INSUFFICIENC 09/26/2018 CAR GASTON MD Ot M54.2 CERVICALGIA 09/26/2018 CAR GASTON MD Ot R07.9 CHEST PAIN, UNSPECIFIED 09/26/2018 CAR GASTON MD Ot R55 SYNCOPE AND COLLAPSE 10/07/2018 JONDER DO, EVA S Ot R01.1 CARDIAC MURMUR, UNSPECIFIED 10/07/2018 JONDER DO EVA S Ot R06.00 DYSPNEA, UNSPECIFIED 10/07/2018 ORENDER DO EVA S Ot R55 SYNCOPE AND COLLAPSE 10/07/2018 JONDER DO EVA S Ot Z01.810 ENCOUNTER FOR PREPROCEDURAL CARDIOVASCUL 10/07/2018 JONDER DO EVA S Ot Z82.49 FAMILY HX OF ISCHEM HEART DIS AND OTH DI 10/10/2018 JONDER DO EVA S Ot G93.89 OTHER SPECIFIED DISORDERS OF BRAIN 10/10/2018 IGLESIAER DO EVA S Ot S09.90XA UNSPECIFIED INJURY OF HEAD, INITIAL ENCO 10/10/2018 FRITZ KERNS EVA S Ot W19.XXXA UNSPECIFIED FALL, INITIAL ENCOUNTER 10/11/2018 CAR GASTON MD Ot I25.10 ATHSCL HEART DISEASE OF [place] CORONARY 10/11/2018 CAR GASTON MD Ot I34.0 NONRHEUMATIC MITRAL (VALVE) INSUFFICIENC 10/11/2018 CAR GASTON MD Ot M54.2 CERVICALGIA 10/11/2018 CAR GASTON MD Ot R07.9 CHEST PAIN, UNSPECIFIED 10/11/2018 CAR GASTON MD Ot R55 SYNCOPE AND COLLAPSE 10/29/2018 CAR GASTON MD Ot Z48.812 ENCNTR FOR SURGICAL AFTCR FOLLOWING SURG 10/29/2018 CAR GASTON MD Ot Z95.5 PRESENCE OF CORONARY ANGIOPLASTY IMPLANT 12/04/2018 CAR GASTON MD Ot Z48.812 ENCNTR FOR SURGICAL AFTCR FOLLOWING SURG 12/04/2018 CRA GASTON MD Ot Z95.5 PRESENCE OF CORONARY ANGIOPLASTY IMPLANT 12/20/2018 CAR GASTON MD, Ot E78.2 MIXED HYPERLIPIDEMIA 12/20/2018 CAR GASTON MD, Ot I25.10 ATHSCL HEART DISEASE OF [place] CORONARY 12/20/2018 CAR GASTON MD, Ot M54.2 CERVICALGIA 12/20/2018 CAR GASTON MD, Ot M54.6 PAIN IN THORACIC SPINE 12/26/2018 RON HERCULES MD, Ot Z01.818 ENCOUNTER FOR OTHER PREPROCEDURAL EXAMIN 12/27/2018 RON HERCULES MD, Ot Z01.818 ENCOUNTER FOR OTHER PREPROCEDURAL EXAMIN 01/01/2019 RON HERCULES MD, Ot E78.5 HYPERLIPIDEMIA, UNSPECIFIED 01/01/2019 RON HERCULES MD, Ot I10 ESSENTIAL (PRIMARY) HYPERTENSION 01/01/2019 RON HERCULES MD, Ot J44.9 CHRONIC OBSTRUCTIVE PULMONARY DISEASE, U 01/01/2019 RON HERCULES MD, Ot J45.909 UNSPECIFIED ASTHMA, UNCOMPLICATED 01/01/2019 RON HERCULES MD, Ot K21.9 GASTRO-ESOPHAGEAL REFLUX DISEASE WITHOUT 01/01/2019 RON HERCULES MD, Ot K44.9 DIAPHRAGMATIC HERNIA WITHOUT OBSTRUCTION 01/01/2019 RON HERCULES MD, Ot M22.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, LEFT KNEE 01/01/2019 RON HERCULES MD, Ot M23.322 OT MENISCUS DERANG, POST HORN OF MEDIAL 01/01/2019 RON HERCULES MD, Ot M23.352 OT MENISCUS DERANG, POSTERIOR HORN OF L 01/01/2019 RON HERCULES MD, Ot M79.7 FIBROMYALGIA 01/01/2019 RON HERCULES MD, Ot M81.0 AGE-RELATED OSTEOPOROSIS W/O CURRENT PAT 01/01/2019 RON HERCULES MD, Ot Z11.2 ENCOUNTER FOR SCREENING FOR OTHER BACTER 01/01/2019 RON HERCULES MD, Ot Z79.01 SAFETY INVESTIGATOR (CURRENT) USE OF ANTICOAGULANT 01/01/2019 RON HERCULES MD, Ot Z79.82 SAFETY INVESTIGATOR (CURRENT) USE OF ASPIRIN 01/01/2019 RON HERCULES MD, Ot Z79.899 OTHER SKILLED NURSING (CURRENT) DRUG THERAPY 01/01/2019 RON HERCULES MD, Ot Z87.891 PERSONAL HISTORY OF NICOTINE DEPENDENCE 01/01/2019 RON HERCULES MD, Ot Z88.0 ALLERGY STATUS TO PENICILLIN 01/01/2019 RON HERCULES MD, Ot Z88.1 ALLERGY STATUS TO OTHER ANTIBIOTIC AGENT 01/01/2019 RON HERCULES MD, Ot Z95.5 PRESENCE OF CORONARY ANGIOPLASTY IMPLANT 01/01/2019 RON HERCULES MD, Ot Z96.651 PRESENCE OF RIGHT ARTIFICIAL KNEE JOINT 01/03/2019 RON HERCULES MD, Ot E78.5 HYPERLIPIDEMIA, UNSPECIFIED 01/03/2019 RON HERCULES MD, Ot I10 ESSENTIAL (PRIMARY) HYPERTENSION 01/03/2019 RON HERCULES MD, Ot J44.9 CHRONIC OBSTRUCTIVE PULMONARY DISEASE, U 01/03/2019 RON HERCULES MD, Ot J45.909 UNSPECIFIED ASTHMA, UNCOMPLICATED 01/03/2019 RON HERCULES MD, Ot K21.9 GASTRO-ESOPHAGEAL REFLUX DISEASE WITHOUT 01/03/2019 RON HERCULES MD, Ot K44.9 DIAPHRAGMATIC HERNIA WITHOUT OBSTRUCTION 01/03/2019 RON HERCULES MD, Ot M22.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, LEFT KNEE 01/03/2019 RON HERCULES MD Ot M23.322 OTH MENISCUS DERANG, POST HORN OF MEDIAL 01/03/2019 RON HERCULES MD Ot M23.352 OTH MENISCUS DERANG, POSTERIOR HORN OF L 01/03/2019 RON HERCULES MD Ot M79.7 FIBROMYALGIA 01/03/2019 RON HERCULES MD, Ot M81.0 AGE-RELATED OSTEOPOROSIS W/O CURRENT PAT 01/03/2019 RON HERCULES MD, Ot Z11.2 ENCOUNTER FOR SCREENING FOR OTHER BACTER 01/03/2019 RON HERCULES MD, Ot Z79.01 SKILLED NURSING (CURRENT) USE OF ANTICOAGULANT 01/03/2019 RON HERCULES MD, Ot Z79.82 SKILLED NURSING (CURRENT) USE OF ASPIRIN 01/03/2019 RON HERCULES MD, Ot Z79.899 OTHER SAFETY INVESTIGATOR (CURRENT) DRUG THERAPY 01/03/2019 RON HERCULES MD, Ot Z87.891 PERSONAL HISTORY OF NICOTINE DEPENDENCE 01/03/2019 RON HERCULES MD, Ot Z88.0 ALLERGY STATUS TO PENICILLIN 01/03/2019 RON HERCULES MD, Ot Z88.1 ALLERGY STATUS TO OTHER ANTIBIOTIC AGENT 01/03/2019 RON HERCULES MD, Ot Z95.5 PRESENCE OF CORONARY ANGIOPLASTY IMPLANT 01/03/2019 RON HERCULES MD, Ot Z96.651 PRESENCE OF RIGHT ARTIFICIAL KNEE JOINT 01/10/2019 CAR GASTON MD Ot E78.2 MIXED HYPERLIPIDEMIA 01/10/2019 CAR GASTON MD, Ot I25.10 ATHSCL HEART DISEASE OF [place] CORONARY 01/10/2019 CAR GASTON MD, Ot M54.2 CERVICALGIA 01/10/2019 CAR GASTON MD, Ot M54.6 PAIN IN THORACIC SPINE 01/16/2019 CAR GASTON MD Ot Z48.812 ENCNTR FOR SURGICAL AFTCR FOLLOWING SURG 01/16/2019 CAR GASTON MD, Ot Z95.5 PRESENCE OF CORONARY ANGIOPLASTY IMPLANT 01/26/2019 CAR GASTON MD Ot Z48.812 ENCNTR FOR SURGICAL AFTCR FOLLOWING SURG 01/26/2019 CAR GASTON MD, Ot Z95.5 PRESENCE OF CORONARY ANGIOPLASTY IMPLANT 01/31/2019 CAR GASTON MD, Ot Z48.812 ENCNTR FOR SURGICAL AFTCR FOLLOWING SURG 01/31/2019 CAR GASTON MD, Ot Z95.5 PRESENCE OF CORONARY ANGIOPLASTY IMPLANT Procedures Code Description Performed By Performed On [id number] REMOVAL OF LINER FROM RIGHT KNEE JOINT, 06/20/2017 [id number] REPLACE OF R KNEE JT WITH SYNTH SUB, DENIA 06/20/2017 [id number] SUPPLEMENT RIGHT KNEE JOINT WITH LINER, 06/20/2017 [...] Automated erythrocyte mean corpuscular hemoglobin concentration measurement (mass/volume) 33 g/dL 32-36 Automated erythrocyte distribution width ratio 13.4 % 10.0- 14.5 Automated blood platelet count (count/volume) 308 10*3/uL [...] Blood monocytes automated count (number/volume) 0.6 10*3 0.0- 1.0 Automated eosinophil count 0.1 10*3/uL 0.0-0.3 Automated [...] gravity of urine by test strip 1.010 1.016-1.022 Urine protein assay by test strip, semi-quantitative [...] sediment leukocyte count by microscopy (number/high power field) NONE NRG Bacteria detection in urine sediment [...] Serum or plasma aspartate aminotransferase measurement (enzymatic activity/volume) 16 U/L 5-34 Serum or plasma alanine aminotransferase measurement (enzymatic activity/volume) 19 U/L 0-55 Serum or plasma protein measurement (mass/volume) 7.7 g/dL 6.4-8.2 Serum or plasma albumin measurement (mass/volume) 4.7 g/dL 3.2-4.5 Erythrocyte sedimentation rate by westergren method - 06/13/17 10:41 Erythrocyte sedimentation rate by westergren method 1 mm 0- 30 Blood type T Indirect antibody screen panel - 06/13/17 10:41 ABO+Rh group AP NRG Blood group antibody screen NEGATIVE NRG Methicillin resistant Staphylococcus aureus (MRSA) screening culture - 06/13/17 10:41 Methicillin resistant Staphylococcus aureus (MRSA) screening culture NEG NRG Blood type T Indirect antibody screen panel - 06/20/17 08:31 ABO+Rh group AP NRG Transfusion band number [id number] Blood group antibody screen NEGATIVE NRG Whole blood hemoglobin and hematocrit panel - 06/21/17 06:14 Venous blood hemoglobin measurement (mass/volume) 12.1 g/dL 11.5-16.0 Blood hematocrit (volume fraction) 37 % 35-52 Methicillin resistant Staphylococcus aureus (MRSA) screening culture - 05/23/18 11:10 Methicillin resistant Staphylococcus aureus (MRSA) screening [...] Automated erythrocyte mean corpuscular hemoglobin concentration measurement (mass/volume) 33 g/dL 32-36 Automated erythrocyte distribution width ratio 13.0 % 10.0- 14.5 Automated blood platelet count (count/volume) 290 10*3/uL 130-400 Automated blood platelet mean volume measurement 10.4 [foz_us] 7.4-10.4 Complete urinalysis with reflex to culture - 09/11/18 08:29 Urine color determination YELLOW NRG Urine clarity determination CLEAR NRG Urine pH measurement by test strip 6 5-9 Specific gravity of urine by test strip 1.020 1.016-1.022 Urine protein assay by test strip, semi-quantitative NEGATIVE NEGATIVE Urine glucose detection by automated test strip NEGATIVE NEGATIVE Erythrocytes detection in urine sediment by light microscopy 1+ NEGATIVE Urine ketones detection by automated test strip NEGATIVE NEGATIVE Urine nitrite detection by test strip NEGATIVE NEGATIVE Urine total bilirubin detection by test strip NEGATIVE NEGATIVE Urine urobilinogen measurement by automated test strip (mass/volume) NORMAL NORMAL Urine leukocyte esterase detection by dipstick 2+ NEGATIVE Automated urine sediment erythrocyte count by microscopy (number/high power field) NONE NRG Automated urine sediment leukocyte count by microscopy (number/high power field) [HPF] NRG Bacteria detection in urine sediment by light microscopy TRACE NRG Squamous epithelial cells detection in urine sediment by light microscopy 0-2 NRG Crystals detection in urine sediment by light microscopy PRESENT NRG Casts detection in urine sediment by light microscopy NONE NRG Mucus detection in urine sediment by light microscopy NEGATIVE NRG Complete urinalysis with reflex to culture NO NRG Amorphous sediment detection in urine sediment by light microscopy RARE RERE URATES NRG Methicillin resistant Staphylococcus aureus (MRSA) screening culture - 09/11/18 08:46 Methicillin resistant Staphylococcus aureus (MRSA) screening culture NEG NRG Automated blood complete blood count (hemogram) panel - 09/11/18 08:52 Blood leukocytes automated count (number/volume) 8.2 10*3/uL 4.3-11.0 Blood erythrocytes automated count (number/volume) 4.76 10*6/uL 4.35-5.85 Venous blood hemoglobin measurement (mass/volume) 14.9 g/dL 11.5-16.0 Blood hematocrit (volume fraction) 43 % 35-52 Automated erythrocyte mean corpuscular volume 91 [foz_us] 80-99 Automated erythrocyte mean corpuscular hemoglobin (mass per erythrocyte) 31 pg 25-34 Automated erythrocyte mean corpuscular hemoglobin concentration measurement (mass/volume) 34 g/dL 32-36 Automated erythrocyte distribution width ratio 13.6 % 10.0- 14.5 Automated blood platelet count (count/volume) 284 10*3/uL 130-400 Automated blood platelet mean volume measurement 10.4 [foz_us] 7.4-10.4 PT panel in platelet poor plasma by coagulation assay - 09/11/18 08:52 Prothrombin time (PT) in platelet poor plasma by coagulation assay 13.5 s 12.2-14.7 INR in platelet poor plasma or blood by coagulation assay 1.0 0.8-1.4 Activated partial thromboplastin time (aPTT) in platelet poor plasma bycoagulation assay - 09/11/18 08:52 Activated partial thromboplastin time (aPTT) in platelet poor plasma bycoagulation assay 30 s 24-35 Comprehensive metabolic panel - 09/11/18 08:52 Serum or plasma sodium measurement (moles/volume) 143 mmol/L 135-145 Serum or plasma potassium measurement (moles/volume) 4.1 mmol/L 3.6-5.0 Serum or plasma chloride measurement (moles/volume) 117 mmol/L 98-107 Carbon dioxide 17 mmol/L 21-32 Serum or plasma anion gap determination (moles/volume) 9 mmol/L 5-14 Serum or plasma urea nitrogen measurement (mass/volume) 14 mg/dL 7-18 Serum or plasma creatinine measurement (mass/volume) 0.77 mg/dL 0.60-1.30 Serum or plasma urea nitrogen/creatinine mass ratio 18 NRG Serum or plasma creatinine measurement with calculation of estimated glomerular filtration rate > NRG Serum or plasma glucose measurement (mass/volume) 98 mg/dL 70-105 Serum or plasma calcium measurement (mass/volume) 9.0 mg/dL 8.5-10.1 Serum or plasma total bilirubin measurement (mass/volume) 0.3 mg/dL 0.1-1.0 Serum or plasma alkaline phosphatase measurement (enzymatic activity/volume) 73 U/L 40-136 Serum or plasma aspartate aminotransferase measurement (enzymatic activity/volume) 15 U/L 5-34 Serum or plasma alanine aminotransferase measurement (enzymatic activity/volume) 14 U/L 0-55 Serum or plasma protein measurement (mass/volume) 6.7 g/dL 6.4-8.2 Serum or plasma albumin measurement (mass/volume) 4.1 g/dL 3.2-4.5 CALCIUM CORRECTED 8.9 mg/dL 8.5-10.1 Lipid 1996 panel - 09/11/18 08:52 Serum or plasma triglyceride measurement (mass/volume) 57 mg/dL <150 Serum or plasma cholesterol measurement (mass/volume) 147 mg/dL < 200 Serum or plasma cholesterol in HDL measurement (mass/volume) 41 mg/dL 40-60 Cholesterol in LDL [mass/volume] in serum or plasma by direct assay 102 mg/dL 1-129 Serum or plasma cholesterol in VLDL measurement (mass/volume) 11 mg/dL 5-40 Automated blood complete blood count (hemogram) panel - 09/12/18 03:35 Blood leukocytes automated count (number/volume) 8.8 10*3/uL 4.3-11.0 Blood erythrocytes automated count (number/volume) 4.31 10*6/uL 4.35-5.85 Venous blood hemoglobin measurement (mass/volume) 13.0 g/dL 11.5-16.0 Blood hematocrit (volume fraction) 40 % 35-52 Automated erythrocyte mean corpuscular volume 92 [foz_us] 80-99 Automated erythrocyte mean corpuscular hemoglobin (mass per erythrocyte) 30 pg 25-34 Automated erythrocyte mean corpuscular hemoglobin concentration measurement (mass/volume) 33 g/dL 32-36 Automated erythrocyte distribution width ratio 13.3 % 10.0- 14.5 Automated blood platelet count (count/volume) 251 10*3/uL 130-400 Automated blood platelet mean volume measurement 10.5 [foz_us] 7.4-10.4 Whole blood basic metabolic panel - 09/12/18 03:35 Serum or plasma sodium measurement (moles/volume) 140 mmol/L 135-145 Serum or plasma potassium measurement (moles/volume) 3.6 mmol/L 3.6-5.0 Serum or plasma chloride measurement (moles/volume) 117 mmol/L 98-107 Carbon dioxide 17 mmol/L 21-32 Serum or plasma anion gap determination (moles/volume) 6 mmol/L 5-14 Serum or plasma urea nitrogen measurement (mass/volume) 17 mg/dL 7-18 Serum or plasma creatinine measurement (mass/volume) 0.78 mg/dL 0.60-1.30 Serum or plasma urea nitrogen/creatinine mass ratio 22 NRG Serum or plasma creatinine measurement with calculation of estimated glomerular filtration rate > NRG Serum or plasma glucose measurement (mass/volume) 97 mg/dL 70-105 Serum or plasma calcium measurement (mass/volume) 8.3 mg/dL 8.5-10.1 Methicillin resistant Staphylococcus aureus (MRSA) screening culture - 01/01/19 07:25 Methicillin resistant Staphylococcus aureus (MRSA) screening culture NEG NRG Encounters ACCT No. Visit Date/Time Discharge Status Pt. Type Provider Facility Loc./Unit Complaint 2012 02/10/2019 10:30:10 02/10/2019 23:59:59 CLS Outpatient Sha Whiteline TaylorRe [id number] 01/27/2019 08:00:00 01/27/2019 23:59:59 CLS Preadmit CAR GASTON MD Via [facility] [address] CR STENT [id number] 11/20/2018 08:00:00 01/26/2019 00:01:00 DIS Outpatient CAR GASTON MD [facility] [address] CR STENT [id number] 01/01/2019 07:00:00 01/01/2019 11:00:00 DIS Outpatient RON HERCULES MD [facility] [address] SDC LEFT KNEE MEDIAL MENISCUS TEAR [id number] 12/26/2018 05:56:00 12/26/2018 13:42:00 DIS Outpatient RON HERCULES MD [facility] [address] PREOP LEFT KNEE MEDIAL MENISCUS TEAR [id number] 12/19/2018 07:37:00 12/19/2018 23:59:59 CLS Outpatient CAR GASTON MD [facility] [address] LAB THORACALGIA,CAD IN MASHPEE ARTERY [id number] 09/11/2018 08:11:00 09/12/2018 08:58:00 DIS Outpatient CAR GASTON MD [facility] [address] CATH ABN STRESS [id number] 09/06/2018 09:18:00 09/06/2018 23:59:59 CLS Outpatient CAR GASTON MD [facility] [address] CARD CAD [id number] 09/03/2018 16:19:00 09/03/2018 23:59:59 CLS Preadmit CAR GASTON MD [facility] [address] CARD SOB [id number] 08/26/2018 07:15:00 08/26/2018 23:59:59 CLS Outpatient EVA WHITE DO S [facility] [address] CARD SYNCOPE,DYSPNEA,FAMILIAL CAD [id number] 08/20/2018 14:01:00 08/20/2018 23:59:59 CLS Outpatient EVA WHITE DO S [facility] [address] RAD HEAD TRAUMA, CEPHALGIA [id number] 08/12/2018 09:16:00 08/12/2018 23:59:59 CLS Outpatient VALENTINPREET R ROTARY FURNACE TENDER [facility] [address] RAD SYNCOPE AND COLLAPSE [id number] 07/23/2018 08:33:00 07/23/2018 23:59:59 CLS Outpatient EVA WHITE DO S [facility] [address] RAD COUGH,DYSPNEA [id number] 07/16/2018 07:56:00 07/16/2018 23:59:59 CLS Outpatient RON HERCULES MD [facility] [address] RAD OTHER TEAR OF MEDIAL MENISCUS LEFT KNEE [id number] 05/29/2018 08:54:00 05/29/2018 13:25:00 DIS Outpatient RON HERCULES MD [facility] LEFT KNEE CHONDROMALASIA [id number] 05/23/2018 10:33:00 05/23/2018 11:20:00 DIS Outpatient RON HERCULES MD [facility] [address] PREOP LEFT KNEE CHONDROMALASIA [id number] 07/26/2017 10:00:00 08/14/2017 08:40:00 DIS Outpatient RON HERCULES MD [facility] [address] REHAB EFFUSION OF R KNEE [id number] 06/20/2017 07:43:00 06/22/2017 12:05:00 DIS Inpatient RON HERCULES MD [facility] [address] 4TH RIGHT KNEE INSTABILITY [id number] 06/13/2017 10:11:00 06/13/2017 11:00:00 DIS Outpatient RON HERCULES MD [facility] [address] PREOP RIGHT TOTAL KNEE REVISION [id number] 04/25/2017 10:14:00 04/25/2017 23:59:59 CLS Outpatient RON HERCULES MD [facility] [address] RAD M17.11 [id number] 03/13/2016 15:42:00 03/13/2016 23:59:59 CLS Outpatient JULES FONSECA APRN [facility] [address] RAD COUGH,CONGESTION,COPD [id number] 01/06/2016 06:07:00 01/06/2016 12:00:00 DIS Outpatient DANIEL ZAPATA MD [facility] VENTERAL HERNIA,REFLEX [id number] 12/28/2015 07:51:00 12/28/2015 11:13:00 DIS Outpatient DANIEL ZAPATA MD [facility] [address] PREOP VENTERAL HERNIA,REFLEX [id number] 01/14/2015 10:19:00 01/14/2015 23:59:59 CLS Outpatient TAMMY POWELL [facility] [address] CARD CP,SOB [id number] 05/22/2014 09:09:00 05/22/2014 23:59:59 CLS Outpatient CHRISTOPHER JONES, FLORIDALMA Edwards [facility] [address] RAD RECCURENT UTI W/STONES [id number] 01/08/2014 08:45:00 01/08/2014 23:59:59 CLS Outpatient TAMMY POWELL OVERHEAD DISTRIBUTION ENGINEER [facility] [address] RAD LT THUMB PAIN [id number] 07/18/2013 08:45:00 07/18/2013 23:59:59 CLS Outpatient TAMMY POWELL OVERHEAD DISTRIBUTION ENGINEER [facility] [address] RAD COUGH [id number] 03/05/2019 10:56:00 PEN Ava HERCULES MD, RON Wylie [facility] [address] REHAB SURG 6 WEEKS AGO TMM L KNEE [id number] 10/08/2014 17:39:00 Document Registration [id number] 06/09/2011 12:03:00 Document Registration [id number] 11/04/2010 07:56:00 Document Registration
--- NOTE | 2019-02-20 01:30 | ED Lower Extremity ---
General Stated Complaint: RT LEG WEAKNESS Source: patient, spouse Exam Limitations: no limitations History of Present Illness Date Seen by Provider: Feb 20, 2019 Time Seen by Provider: 01:20 Initial Comments The patient presents to the ER by ambulance from home with chief complaint of weakness in her right leg difficulty getting out of her chair. She's had this weakness but she says has not gotten any worse in the past month. Her says the weakness is been there for 3 months since November. She says she went to Dr. White and Dr. White did not do anything about it so they went to their small battery plate assembler/asthma doctor and he ordered an ultrasound of her leg, blood work and an MRI of the back all of which were negative. He then went to Drs. Arellano her orthopedic surgeon and he made some suggestions that were already done by Dr. Orona, pulmonology at [place]. He did not give any other suggestions her follow-up plan. They made an appointment with Dr. García but were told they could not be seen until May. The says he wants her seen by Dr. García sooner so he called an ambulance to get in and be seen by the deportation officer sooner. The patient is experiencing weakness in her leg but not falls. She says she cannot stand on her own right now. She has also experienced urinary incontinence and poor memory performance recently. Her says she gets confused about dates and times. During performance of the spinal tap the patient recalled that she had a spinal tap 15 years ago at [facility] and at that time they said the pressure was normal but they suspected she had some overproduction of CSF fluid. She says they were referred to a neurosurgeon in [place] and that they told her at that time she did not need a shot because there was not enough excess fluid. Allergies and Home Medications Allergies Coded Allergies: erythromycin base (Verified Allergy, Intermediate, HIVES, 12/28/15) gluten (Verified Allergy, Mild, HEADACHES, 05/23/18) Penicillins (Unverified Allergy, Unknown, FROM CHILDHOOD, 12/28/15) Home Medications Albuterol Sulfate 1 Puff Puff, 1 PUFF INH Q4H PRN for SHORTNESS OF BREATH, (Reported) 1 PUFF = 90 MCG Alendronate Sodium 70 Mg Tablet, 70 MG PO Denise, (Reported) Aspirin 81 Mg Tablet., 81 MG PO DAILY, (Reported) Atorvastatin Calcium 10 Mg Tablet, 10 MG PO HS, (Reported) Cholecalciferol (Vitamin D3) 50,000 Unit Capsule, 50,000 UNIT PO Sunday, (Reported) Clopidogrel Bisulfate 75 Mg Tablet, 75 MG PO DAILY, (Reported) Fluticasone/Vilanterol 1 Each Blst.w.dev, 2 PUFF IH DAILY, (Reported) Furosemide 40 Mg Tablet, 40 MG PO DAILY, (Reported) Hydrocodone/Acetaminophen 1 Each Tablet, 1 TAB PO Q4H Prescribed by: LIGIA COBB on 01/01/19 1028 Levothyroxine Sodium 100 Mcg Tablet, 100 MCG PO DAILY, (Reported) Montelukast Sodium 10 Mg Tablet, 10 MG PO HS, (Reported) Pantoprazole Sodium 40 Mg Tablet.dr, 40 MG PO DAILY, (Reported) Potassium Chloride 8 Meq Tablet.er, 8 MEQ PO DAILY, (Reported) Sulfamethoxazole/Trimethoprim 1 Each Tablet, 1 EACH PO BID Prescribed by: SIN MANSFIELD on 02/20/19 0514 Topiramate 100 Mg Tablet, 100 MG PO BID PRN for HEADACHE, (Reported) Patient Home Medication List Home Medication List Reviewed: Yes Review of Systems Constitutional: No chills, No diaphoresis EENTM: No ear discharge, No ear pain Respiratory: No cough, No short of breath Cardiovascular: No chest pain, No edema Gastrointestinal: No abdominal pain, No nausea, No vomiting Genitourinary: No discharge, No dysuria Musculoskeletal: No back pain, No joint pain Past Ozundlf-Lzfobw-Uyxyeu Hx Patient Social History Alcohol Use: Occasionally Uses Alcohol Beverage of Choice: Whiskey Recreational Drug Use: No Smoking Status: Current Someday Smoker Type Used: Cigarettes 2nd Hand Smoke Exposure: No Recent Foreign Travel: No Contact w/Someone Who Travel: No Recent Hopitalizations: No Immunizations Up To Date Tetanus Booster (TDap): Unknown PED Vaccines UTD: No Date of Pneumonia Vaccine: May 23, 2017 Date of Influenza Vaccine: May 06, 2018 Seasonal Allergies Seasonal Allergies: Yes Past Medical History Surgeries: Yes (RIGHT TKR, VENTRAL HERNIA x2, EXPLORATORY LAP, KNEE SCOPES) Coronary Stent, Hysterectomy Respiratory: Yes Asthma, COPD, Emphysema Currently Using CPAP: No Currently Using BIPAP: No Cardiac: Yes (stent) Coronary Artery Disease, Hypertension Neurological: Yes Headaches /Migraines Reproductive Disorders: No Female Reproductive Disorders: Ovarian Cyst Sexually Transmitted Disease: No HIV/AIDS: No Genitourinary: Yes Kidney Stones Gastrointestinal: Yes Chronic Constipation, Diverticulosis, Polyps Musculoskeletal: Yes (left knee medial tear) Arthritis, Fibromyalgia Endocrine: Yes Hypothyroidsim HEENT: No Loss of Vision: Bilateral Hearing Impairment: Denies Cancer: No Psychosocial: Yes Anxiety Integumentary: No Blood Disorders: No Adverse Reaction/Blood Tranf: No (N/A) Family Medical History Arthritis G8 BROTHER Cardiovascular disease 19 FATHER Colon cancer 19 MOTHER Diabetes mellitus G8 BROTHER Hypertension 19 MOTHER G8 BROTHER Myocardial infarction 19 FATHER Respiratory disorder 19 FATHER (lung) Thyroid disease 19 MOTHER Physical Exam Vital Signs Vital Signs - First Documented 02/20/19 01:07 Temp 100.2 Pulse 74 Resp 18 B/P (MAP) 149/85 (106) Capillary Refill : Height, Weight, BMI Height: 5'9.00" Weight: 184lbs. 0.0oz. 83.049889jr; 27.2 BMI Method: General Appearance: WD/WN, no apparent distress HEENT: PERRL/EOMI, normal ENT inspection, pharynx normal Neck: non-tender, supple Cardiovascular: normal peripheral pulses, regular rate, rhythm Respiratory: lungs clear, normal breath sounds, no respiratory distress, no accessory muscle use Gastrointestinal: normal bowel sounds, non tender, soft Back: normal inspection, no vertebral tenderness Hips: bilateral hip non-tender, bilateral hip normal inspection, bilateral hip normal range of motion, bilateral hip no evidence of injury Neurologic/Tendon: normal sensation, normal tendon functions, responds to pain, no evidence tendon injury, motor deficit (right lower extremity is 3 out of 5 motor strength left lower extremity is 5 out of 5.) 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, alert, normal mood/affect, oriented x 3 Skin: normal color, warm/dry Procedures/Interventions Discussed Risk,Benefits: Yes Patient Consents: Yes Position: Lying, L4-5, Left Sterile Technique: Yes Opening Pressure: 19 cmh20 Fluid Color: clear Size of Disposal Tray Used: Adult Progress/Results/Core Measures Results/Orders Lab Results Laboratory Tests Test 02/20/19 01:30 02/20/19 02:35 02/20/19 04:47 Range/Units White Blood Count 12.4 H 4.3-11.0 10^3/uL Red Blood Count 5.04 4.35-5.85 10^6/uL Hemoglobin 15.2 11.5-16.0 G/DL Hematocrit 46 35-52 % Mean Corpuscular Volume 92 80-99 FL Mean Corpuscular Hemoglobin 30 25-34 PG Mean Corpuscular Hemoglobin Concent 33 32-36 G/DL Red Cell Distribution Width 14.1 10.0-14.5 % Platelet Count 354 130-400 10^3/uL Mean Platelet Volume 10.1 7.4-10.4 FL Neutrophils (%) (Auto) 65 42-75 % Lymphocytes (%) (Auto) 18 12-44 % Monocytes (%) (Auto) 16 H 0-12 % Eosinophils (%) (Auto) 0 0-10 % Basophils (%) (Auto) 1 0-10 % Neutrophils # (Auto) 8.0 H 1.8-7.8 X 10^3 Lymphocytes # (Auto) 2.3 1.0-4.0 X 10^3 Monocytes # (Auto) 2.0 H 0.0-1.0 X 10^3 Eosinophils # (Auto) 0.1 0.0-0.3 10^3/uL Basophils # (Auto) 0.1 0.0-0.1 10^3/uL Sodium Level 140 135-145 MMOL/L Potassium Level 3.5 L 3.6-5.0 MMOL/L Chloride Level 103 98-107 MMOL/L Carbon Dioxide Level 24 21-32 MMOL/L Anion Gap 13 5-14 MMOL/L Blood Urea Nitrogen 12 7-18 MG/DL Creatinine 0.81 0.60-1.30 MG/DL Estimat Glomerular Filtration Rate > 60 BUN/Creatinine Ratio 15 Glucose Level 120 H 70-105 MG/DL Calcium Level 9.5 8.5-10.1 MG/DL Corrected Calcium 9.3 8.5-10.1 MG/DL Total Bilirubin 1.0 0.1-1.0 MG/DL Aspartate Amino Transf (AST/SGOT) 15 5-34 U/L Alanine Aminotransferase (ALT/SGPT) 14 0-55 U/L Alkaline Phosphatase 92 40-136 U/L Total Creatine Kinase 399 H 29-168 U/L C-Reactive Protein High Sensitivity 5.09 H 0.00-0.50 MG/DL Total Protein 7.3 6.4-8.2 GM/DL Albumin 4.3 3.2-4.5 GM/DL Thyroid Stimulating Hormone (TSH) 1.26 0.35-4.94 UIU/ML Urine Color YELLOW Urine Clarity SLIGHTLY CLOUDY Urine pH 5 5-9 Urine Specific Sumner 1.025 H 1.016-1.022 Urine Protein 1+ H NEGATIVE Urine Glucose (UA) NEGATIVE NEGATIVE Urine Ketones NEGATIVE NEGATIVE Urine Nitrite NEGATIVE NEGATIVE Urine Bilirubin NEGATIVE NEGATIVE Urine Urobilinogen 1 NORMAL MG/DL Urine Leukocyte Esterase 1+ H NEGATIVE Urine RBC (Auto) NEGATIVE NEGATIVE Urine RBC NONE /HPF Urine WBC 5-10 H /HPF Urine Squamous Epithelial Cells RARE /HPF Urine Crystals NONE /LPF Urine Bacteria LARGE H /HPF Urine Casts NONE /LPF Urine Mucus SMALL H /LPF Urine Culture Indicated YES Urine Opiates Screen NEGATIVE NEGATIVE Urine Oxycodone Screen NEGATIVE NEGATIVE Urine Methadone Screen NEGATIVE NEGATIVE Urine Propoxyphene Screen NEGATIVE NEGATIVE Urine Barbiturates Screen NEGATIVE NEGATIVE Ur Tricyclic Antidepressants Screen NEGATIVE NEGATIVE Urine Phencyclidine Screen NEGATIVE NEGATIVE Urine Amphetamines Screen NEGATIVE NEGATIVE Urine Methamphetamines Screen NEGATIVE NEGATIVE Urine Benzodiazepines Screen NEGATIVE NEGATIVE Urine Cocaine Screen NEGATIVE NEGATIVE Urine Cannabinoids Screen NEGATIVE NEGATIVE CSF Tube Number 4 CSF Appearance CLEAR CSF Color COLORLESS CSF WBC 0 0-5 CELLS CSF RBC 0 0-0 CELLS CSF Lymphocytes % CSF Mononuclear WBCs % CSF Polynuclear WBCs % CSF Glucose 62 50-80 MG/DL CSF Total Protein 107 H 15-40 MG/DL My Orders Orders - SIN MANSFIELD Cbc With Automated Diff (02/20/19 01:24) Comprehensive Metabolic Panel (02/20/19 01:24) Hs C Reactive Protein (02/20/19 01:24) Creatine Kinase (02/20/19 01:24) Ua Culture If Indicated (02/20/19 01:24) Drug Screen Stat (Urine) (02/20/19 01:24) Thyroid Stimulating Hormone (02/20/19 01:24) Ct Head Wo (02/20/19 02:05) Urine Culture (02/20/19 02:35) Csf Cell Count (02/20/19 04:27) Csf Glucose (02/20/19 04:27) Csf Total Protein (02/20/19 04:27) Csf Culture (02/20/19 04:27) Fentanyl Injection (Sublimaze Injection (02/20/19 05:45) Syphilis Antibody Screen (02/20/19 05:49) Tick Panel With Lyme Eia (02/20/19 05:49) Medications Given in ED Current Medications Medications Dose Ordered Sig/Cathy Route Start Time Stop Time Status Last Admin Dose Admin Fentanyl Citrate 50 mcg ONCE ONCE IM 02/20/19 05:45 02/20/19 05:46 DC 02/20/19 05:38 50 MCG Vital Signs/I&O 02/20/19 01:07 Temp 100.2 Pulse 74 Resp 18 B/P (MAP) 149/85 (106) Progress Progress Note #1: Time: 02:23 Progress Note We'll obtain a CT without IV contrast of her head rule out recent large stroke that might explain her right lower extremity weakness. Rhabdomyolysis seems unlikely to strike just one side of her body. However she is concerned that her statins may be causing her weakness. It sounds like she has already had an MRI and an ultrasound done outpatient. She is accompanied with a disc of the MRI but no report. The MRI images appear to be unremarkable lumbar spine. If we cannot find evidence of any acute pathology and were going to recommend that she follow up outpatient with her primary doctor. Progress Note #2: Time: 05:07 Progress Note Normal opening pressure of 19 cm water pressure. Plan to get an MRI outpatient follow-up with Dr. Cindy linder. The patient gives some history that at [facility] she was given a diagnosis of increased fluid on the brain by lumbar. At that time then talk to a neurosurgeon about putting a shunt in but he said there was not enough fluid to be worth doing. Suspect normal pressure hydrocephalus. Diagnostic Imaging Diagonstic Imaging: CT (without contrast) Plain Films/CT/US/NM/MRI: head Comments No evidence of acute infarct or intracranial hemorrhage. Markedly ventriculomegaly with slight increase in ventricular size and slight increase in sulcal effacement could represent some degree of increasing hydrocephalus. This needs clinical and imaging follow-up. Reviewed: Reviewed [place] Hawk Study, Reviewed by Me Departure Impression Primary Impression: Weakness of right lower extremity Additional Impressions: Urinary incontinence Qualified Codes: R32 - Unspecified urinary incontinence Urinary tract infection Qualified Codes: N30.00 - Acute cystitis without hematuria Disposition: HOME, SELF-CARE Condition: Stable Departure-Patient Inst. Decision time for Depature: 05:51 Referrals: RON ARELLANO MD (PCP) Primary Care Physician UDAY WHITE DO Patient Instructions: Urinary Tract Infection, Adult (DC) Add. Discharge Instructions: Tomorrow call the outpatient MRI staff and start getting scheduled for an MRI of your brain. Results will be forwarded to Dr. White. Please call Dr. White's office and make an appointment to follow-up on the results. 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 Drink plenty of fluids. Return to the ER if you have facial droop, slurring speech or other concerning changes. Scripts Sulfamethoxazole/Trimethoprim (Bactrim Ds Tablet) 1 Each Tablet 1 EACH PO BID for 7 Days, #14 TAB 0 Refills Prov: SIN MANSFIELD 02/20/19 SIN MANSFIELD Feb 20, 2019 01:30
[2019-02-20 01:41] LABS: BASOPHILS # (AUTO) 0.1 10^3/uL (0.0-0.1); BASOPHILS % (AUTO) 1 % (0-10); EOSINOPHILS # (AUTO) 0.1 10^3/uL (0.0-0.3); EOSINOPHILS % (AUTO) 0 % (0-10); HEMATOCRIT 46 % (35-52); HEMOGLOBIN 15.2 G/DL (11.5-16.0); LYMPHOCYTES # (AUTO) 2.3 X 10^3 (1.0-4.0); LYMPHOCYTES % (AUTO) 18 % (12-44); MEAN CORPUSCULAR HEMOGLOBIN 30 PG (25-34); MEAN CORPUSCULAR HGB CONC 33 G/DL (32-36); MEAN CORPUSCULAR VOLUME 92 FL (80-99); MEAN PLATELET VOLUME 10.1 FL (7.4-10.4); MONOCYTES % (AUTO) 16 % (0-12); NEUTROPHILS % (AUTO) 65 % (42-75); PLATELET COUNT 354 10^3/uL (130-400); RED CELL DISTRIBUTION WIDTH 14.1 % (10.0-14.5); WHITE BLOOD COUNT 12.4 10^3/uL (4.3-11.0)
[2019-02-20 02:01] LABS: ALANINE AMINOTRANSFERASE 14 U/L (0-55); ALBUMIN 4.3 GM/DL (3.2-4.5); ALKALINE PHOSPHATASE 92 U/L (40-136); BUN/CREATININE RATIO 15; CALCIUM 9.5 MG/DL (8.5-10.1); CARBON DIOXIDE 24 MMOL/L (21-32); CHLORIDE 103 MMOL/L (98-107); CREATINE KINASE 399 U/L (29-168); CREATININE SERUM 0.81 MG/DL (0.60-1.30); GFR ESTIMATED > 60; GLUCOSE 120 MG/DL (70-105); POTASSIUM 3.5 MMOL/L (3.6-5.0); SODIUM 140 MMOL/L (135-145); TOTAL PROTEIN 7.3 GM/DL (6.4-8.2)
[2019-02-20 02:44] LABS: BILIRUBIN,URINE NEGATIVE (NEGATIVE); CLARITY,URINE SLIGHTLY CLOUDY; COLOR,URINE YELLOW; GLUCOSE, URINE (UA) NEGATIVE (NEGATIVE); KETONES,URINE NEGATIVE (NEGATIVE); LEUKOCYTE ESTERASE ,URINE 1+ (NEGATIVE); NITRITE,URINE NEGATIVE (NEGATIVE); PH,URINE 5 (5-9); PROTEIN,URINE 1+ (NEGATIVE); UROBILINOGEN,URINE 1 MG/DL (NORMAL)
[2019-02-20 02:50] LABS: BACTERIA,URINE LARGE /HPF; SQUAMOUS EPITHELIAL CELL,UR RARE /HPF
[2019-02-20 02:55] LABS: AMPHETAMINE SCREEN, URINE NEGATIVE (NEGATIVE); BARBITURATE SCREEN URINE NEGATIVE (NEGATIVE); BENZODIAZEPINES SCREEN URINE NEGATIVE (NEGATIVE); CANNABINOID SCREEN, URINE NEGATIVE (NEGATIVE); COCAINE SCREEN URINE NEGATIVE (NEGATIVE); METHADONE STAT NEGATIVE (NEGATIVE); METHAMPHETAMINE SCREEN URINE S NEGATIVE (NEGATIVE); OPIATE SCREEN URINE NEGATIVE (NEGATIVE); OXYCODONE STAT NEGATIVE (NEGATIVE); PROPOXYPHENE STAT NEGATIVE (NEGATIVE); TRICYCLIC ANTIDEPRESSANTS SCRE NEGATIVE (NEGATIVE)
--- NOTE | 2019-02-20 04:50 | NUR ---
LP PERFORMED BY DR. MANSFIELD IN ED. CSF SAMPLES COLLECTED #1 @ 0446; #2 @ 0446; #3 @ 0447; #4 @ 3519.
[2019-02-20] MEDS ORDERED: SULF1TAB35 PO (05:14)
[2019-02-20 05:21] LABS: APPEARANCE,CSF CLEAR; COLOR,CSF COLORLESS
[2019-02-20 05:22] LABS: CSF TUBE NUMBER 4; RED BLOOD CELL,CSF 0 CELLS (0-0); WHITE BLOOD CELL,CSF 0 CELLS (0-5)
[2019-02-20 05:33] LABS: CSF GLUCOSE 62 MG/DL (50-80); CSF TOTAL PROTEIN 107 MG/DL (15-40)
[2019-02-20] MEDS ORDERED: fentaNYL INJECTION 100 MCG/2 ML AMP IM ONE (05:45)
[2019-02-20 06:03] VITALS: BP 135/80
--- NOTE | 2019-02-20 06:11 | Diagnostic Imaging Report ---
PROCEDURE: CT head without contrast. TECHNIQUE: Multiple contiguous axial images were obtained through the brain without the use of intravenous contrast. Auto Exposure Controls were utilized during the CT exam to meet ALARA standards for radiation dose reduction. INDICATION: Weakness to right leg. FINDINGS: The previous CT head exam of 08/20/2018 noted that the ventricles were dilated and raise the question of normal pressure hydrocephalus. On this study, the third and lateral ventricles remain dilated. The fourth ventricle is much less prominent than the other ventricles and this appearance does raise the question of aqueductal stenosis as opposed to normal pressure hydrocephalus. However, if further evaluation for normal pressure hydrocephalus is desired, then a nuclear medicine cisternogram would be recommended. There is no mass, shift of midline or hemorrhage. The bone windows show no sign of a fracture or destructive lesion. The 1 CM extradural calcification along the inner table of the left frontal lobe seen previously is again evident and no different. The orbits are symmetrical and within normal limits. The sinuses are generally clear. IMPRESSION: 1. There is persistent enlargement of the third and lateral ventricles. Considerations and recommendations as above. 2. There is no acute intracranial abnormality noted. Dictated by: Dictated on workstation # [id number]
== END 2019-02-20 06:10 | disposition home or self-care (01) ==
LOC: EDUNIT# 01:06 → ER 01:07
DX: N39.0 Urinary tract infection, site not specified (principal); R53.1 Weakness; J43.9 Emphysema, unspecified; I10 Essential (primary) hypertension; I25.10 Atherosclerotic heart disease of native coronary artery without angina pectoris; G43.909 Migraine, unspecified, not intractable, without status migrainosus; F17.210 Nicotine dependence, cigarettes, uncomplicated; J45.909 Unspecified asthma, uncomplicated; M79.7 Fibromyalgia; E03.9 Hypothyroidism, unspecified; F41.9 Anxiety disorder, unspecified; Z87.442 Personal history of urinary calculi; Z86.011 Personal history of benign neoplasm of the brain; Z87.19 Personal history of other diseases of the digestive system; Z88.1 Allergy status to other antibiotic agents; Z88.0 Allergy status to penicillin; Z88.8 Allergy status to other drugs, medicaments and biological substances; Z79.82 Long term (current) use of aspirin; Z79.02 Long term (current) use of antithrombotics/antiplatelets; Z96.651 Presence of right artificial knee joint; Z90.710 Acquired absence of both cervix and uterus; Z95.5 Presence of coronary angioplasty implant and graft; Z80.0 Family history of malignant neoplasm of digestive organs; Z82.49 Family history of ischemic heart disease and other diseases of the circulatory system
CPT/HCPCS: 36415; 62270; 70450; 80053; 80306; 81000; 82550; 82945; 84157; 84443; 85025; 86141; 87070; 87077; 87088; 87205; 89051; 96372

== ENCOUNTER → 2019-02-25 | Outpatient (CLI) | payer MEDICARE ==
[~2019-02-25] MED LIST changes: +SULF1TAB35 PO
--- NOTE | 2019-02-25 13:58 | Diagnostic Imaging Report ---
PROCEDURE: MR imaging of the brain without contrast. TECHNIQUE: Multiplanar, multisequence MR imaging of the brain was performed without contrast. INDICATION: Confusion. FINDINGS: Lateral and third ventricular dilatation as well as moderate dilatation of fourth ventricle is again seen. There are periventricular and subcortical white matter signal abnormalities noted. The normal expected flow-voids within the carotid siphons are seen. No diffusion restriction is identified to suggest acute ischemia. No acute intra-axial or extra-axial hemorrhage is detected. Corpus callosum is unremarkable. Sella and parasellar structures are unremarkable. IMPRESSION: Ventriculomegaly and chronic microvascular ischemia, similar to prior study. No acute feature is seen. Dictated by: Dictated on workstation # [id number]
== END ==
LOC: RAD 12:38
PROVIDERS: ATTEND Emergency Medicine
DX: I67.82 Cerebral ischemia (principal); G93.89 Other specified disorders of brain
CPT/HCPCS: 70551

== ENCOUNTER 2019-05-15 11:00 | Outpatient (RCR) | payer MEDICARE ==
[~2019-05-15 11:00] MED LIST changes: -PSEU120T18 PO; +[UNRECOGNIZED DRUG - CODE] PO
== END 2019-05-27 15:30 | disposition home or self-care (01) ==
PROVIDERS: ATTEND Family Medicine
DX: G31.84 Mild cognitive impairment of uncertain or unknown etiology (principal); G91.9 Hydrocephalus, unspecified; Z98.2 Presence of cerebrospinal fluid drainage device

== ENCOUNTER → 2019-10-20 | Outpatient (CLI) | payer MEDICARE ==
[~2019-10-20] MED LIST changes: -CETI10TA20 PO; +CETI10TA21 PO; +HYDR-34 PO; -HYDR-3816 PO; -MONT10TA24 PO; +MONT10TA26 PO
== END ==
LOC: LAB 10:09
PROVIDERS: ATTEND Nurse Practitioner Family
DX: R06.00 Dyspnea, unspecified (principal); R07.9 Chest pain, unspecified
CPT/HCPCS: 36415; 85379

== ENCOUNTER → 2020-03-08 | Outpatient (CLI) | payer MEDICARE ==
--- NOTE | 2020-03-08 18:14 | Diagnostic Imaging Report ---
CT Lung Screening INDICATION:Screening for lung cancer, [id number] history of smoking, current smoker. TECHNIQUE: Noncontrast, low-dose CT imaging performed according to the lung cancer screening protocol. Auto Exposure Controls were utilize during the CT exam to meet ALARA standards for radiation dose reduction. COMPARISON:11/02/2009 FINDINGS: No pathologically enlarged lymph nodes within the chest. No aneurysmal dilatation of the thoracic aorta. Minimal vascular calcifications. However, significant calcification is noted within the right coronary artery. Heart is within normal limits in size. No pericardial effusion. No pleural effusion. No pneumothorax. Moderate background predominantly centrilobular emphysematous changes are present. Calcified granuloma associated with the left major fissure inferiorly. 2 mm left lower lobe pulmonary nodule is unchanged since 2009. 1.3 cm triangular shaped nodular density within the peripheral left lower lobe is unchanged since 2009, and benign. Mild scarring and/or atelectasis within the lingula and left upper lobe anteriorly. 0.4 cm solid left upper lobe pulmonary nodule is stable. Minimal scarring and/or atelectasis medial aspect of the right lung. No new pulmonary nodules. The partially visualized upper abdomen is unremarkable. Scattered osseous degenerative changes without acute osseous abnormality. IMPRESSION: Moderate background emphysematous changes with stable benign bilateral pulmonary nodules. No new pulmonary nodules with mild scattered areas of scarring and/or atelectasis. LUNG-RADS CATEGORY: 2S: Benign appearance or behavior MODIFIER: S: Moderate background emphysematous changes. Follow-up: Continued screening with low dose CT of the chest in 12 months. Dictated by: Dictated on workstation # [id number]
== END ==
LOC: RAD 12:11
PROVIDERS: ATTEND Nurse Practitioner Family
DX: Z12.2 Encounter for screening for malignant neoplasm of respiratory organs (principal); J43.9 Emphysema, unspecified; R91.8 Other nonspecific abnormal finding of lung field; Z87.891 Personal history of nicotine dependence

== ENCOUNTER → 2020-04-28 | Outpatient (CLI) | payer MEDICARE ==
[~2020-04-28] MED LIST changes: +ASPI-1238 PO; -ASPI-983 PO; -CETI10TA21 PO; +CETI10TA49 PO; -PANT40TA3 PO; +PANT40TA52 PO
== END ==
LOC: LABNPT 06:20
PROVIDERS: ATTEND Family Medicine
DX: R05 Cough (principal); R51 Headache; R09.81 Nasal congestion; Z20.828 Contact with and (suspected) exposure to other viral communicable diseases
CPT/HCPCS: 87635

== ENCOUNTER 2020-07-27 05:34 | Outpatient (RCR) | payer MEDICARE ==
[~2020-07-27] VITALS: Ht 175 cm; Wt 100.0 kg
[~2020-07-27 05:34] MED LIST changes: -ALEN70TA5 PO; +ALEN70TA69 PO; +BENZ-36 PO; +BUPR150T28 PO; +CHOL500050 PO; +CYCL5TAB PO; +HYDR200T46 PO; +LEVO5TAB12 PO; +LOSA1TAB20 PO; -MONT10TA26 PO; +MONT10TA97 PO; +OMEP40CA27 PO; +POTA-51 PO; +TIOT4MIS3 IH; +UMEC1BLS IH
== END 2020-07-27 10:52 | disposition home or self-care (01) ==
LOC: PREOP 05:34
PROVIDERS: ATTEND Surgery
DX: Z01.812 Encounter for preprocedural laboratory examination (principal); K43.2 Incisional hernia without obstruction or gangrene; Z20.828 Contact with and (suspected) exposure to other viral communicable diseases
CPT/HCPCS: 87635

== ENCOUNTER 2020-07-29 08:19 | Day surgery (SDC) | payer MEDICARE ==
[2020-07-29] VITALS (9 sets, daily range): BP systolic 141–168; BP diastolic 64–92
[~2020-07-29] VITALS: Ht 175 cm; Wt 100.0 kg
--- NOTE | 2020-07-29 08:35 | Progress Note-Pre Operative ---
Pre-Operative Progress Note H&P Reviewed The H&P was reviewed, patient examined and no changes noted. Date Seen by Provider: Jul 29, 2020 Time Seen by Provider: 08:30 Date H&P Reviewed: Jul 29, 2020 Time H&P Reviewed: 08:25 Pre-Operative Diagnosis: Ventral abdominal incisional hernia SAMIRA DURON APRN Jul 29, 2020 08:35
[2020-07-29] MEDS ORDERED: HYDR-4227 PO (08:38)
--- NOTE | 2020-07-29 08:39 | Discharge Inst-Surgical ---
D/C Lap Instructions-KIDO Reconcile Patient Problems Problems Reviewed?: Yes New, Converted, or Re-Newed RX: RX on Chart Follow Up Appt in 2 weeks Activity as tolerated No driving for 24 hours No driving while on pain medications Incentive Spirometry use every 2 hours while awake Regular Diet Symptoms to Report: Fever over 101 degree F, Nausea/Vomiting Infection Signs and Symptoms to report: Increased redness, Foul odor of wound, Increased drainage Bathing instructions: May shower Operative Area Clean/Dry; Keep incision clean/dry If any problems/questions: Contact your physician or go to Emergency Room SAMIRA DURON APRN Jul 29, 2020 08:39
[2020-07-29] MEDS ORDERED: ONDANSETRON 4 MG/2 ML (SDV) Z0FRAN IVP PRN ×2 (08:45→12:15)
[2020-07-29] MEDS ORDERED: ACETAMINOPHEN 325 MG TABLET PO PRN (08:45)
[2020-07-29] MEDS ORDERED: HYDROcodone/APAP 5 MG/325 MG (LORTAB) TAB PO ONE (08:45)
[2020-07-29] MEDS ORDERED: morphine INJ 10 MG/ML 1ML (SYR OR VIAL) IVP PRN (08:45)
[2020-07-29] MEDS ORDERED: CLINDAMYCIN 600 MG/50 ML IVPB 50 ML IV ONE ×2 (08:45→09:04)
[2020-07-29] MEDS ORDERED: LIDOCAINE/EPI 1%-1:200,000 (XYLOCAINE) 30 ML VIAL ONE (08:59)
[2020-07-29] MEDS: LACTATED RINGERS 1,000 ML IV PRN ×2 (09:00→11:27)
[2020-07-29] MEDS ORDERED: fentaNYL INJECTION 100 MCG/2 ML AMP ONE (10:40)
[2020-07-29] MEDS ORDERED: MIDAZOLAM 2 MG/2 ML (VERSED) VIAL ONE (10:40)
[2020-07-29] MEDS ORDERED: LIDOCAINE/EPI 1%-1:100,000 (XYLOCAINE) 20ML ONE (10:44)
[2020-07-29] MEDS ORDERED: LIDOCAINE PF 2% 5 ML (XYLOCAINE) VIAL ONE (10:48)
[2020-07-29] MEDS ORDERED: proPOfol 200 MG/20 ML (DIPRIVAN) VIAL IV ONE (10:48)
[2020-07-29] MEDS ORDERED: ONDANSETRON 4 MG/2 ML (SDV) Z0FRAN ONE (10:49)
[2020-07-29] MEDS ORDERED: ROCURONIUM 10 MG/ML 5 ML SYRINGE IV ONE (10:49)
[2020-07-29] MEDS ORDERED: SEVOFLURANE (ULTANE) 15 ML INHAL SOLN ONE ×2 (10:49→11:45)
[2020-07-29] MEDS ORDERED: LABETALOL HCL 20 MG/4 ML VIAL ONE (11:47)
--- NOTE | 2020-07-29 11:49 | Progress Note-Post Operative ---
Post-Operative Progess Note Surgeon (s)/Historical Guide (s) Surgeon DANIEL ZAPATA MD Historical Guide: jermaine bermeo INFORMATION DIRECTOR Pre-Operative Diagnosis Ventral abdominal incisional hernia Post-Operative Diagnosis same (3cm) Procedure & Operative Findings Date of Procedure 07/29/20 Procedure Performed/Findings incisional hernia repair with mesh. Anesthesia Type get Estimated Blood Loss Estimated blood loss (mL): minimal Specimens/Packing Specimens Removed none DANIEL ZAPATA MD Jul 29, 2020 11:49
[2020-07-29] MEDS ORDERED: MEPERIDINE (DEMEROL) INJ 50 MG/ML IVP ONE (12:15)
[2020-07-29] MEDS ORDERED: morphine INJ 10 MG/ML 1ML (SYR OR VIAL) IVP ONE (12:15)
[2020-07-29] MEDS ORDERED: fentaNYL INJECTION 100 MCG/2 ML AMP IVP ONE (12:15)
--- NOTE | 2020-07-29 12:41 | Anesthesia-General Post-Op ---
General Patient Condition Mental Status/LOC: Same as Preop Cardiovascular: Satisfactory Nausea/Vomiting: Absent Respiratory: Satisfactory Pain: Controlled Complications: Absent Post Op Complications Complications None Follow Up Care/Instructions Patient Instructions None needed. Anesthesia/Patient Condition Patient Condition Patient is doing well, no complaints, stable vital signs, no apparent adverse anesthesia problems. No complications reported per nursing. WILDER TOUSSAINT CRNA Jul 29, 2020 12:41
[2020-07-29] MEDS ORDERED: HYDROcodone/APAP 5 MG/325 MG (LORTAB) TAB ONE (13:27)
--- NOTE | 2020-07-29 17:45 | OPERATIVE REPORT ---
DATE OF SERVICE: 07/29/2020 ATTENDING PRIMARY CARE PHYSICIAN: Dr. Eva White. PREOPERATIVE DIAGNOSIS: Ventral abdominal incisional hernia. POSTOPERATIVE DIAGNOSIS: Ventral abdominal incisional hernia with the fascial defect 3 cm in size. PROCEDURE: Ventral abdominal incisional hernia repair with mesh. SURGEON: Fabien Zapata MD COURT ABSTRACTOR: Amauri Reddy APRN. ANESTHESIA: General endotracheal. ESTIMATED BLOOD LOSS: Minimal. FINDINGS: Ventral abdominal incisional hernia with the fascial defect 3 cm in size. DISPOSITION: The patient tolerated the procedure well. INDICATIONS: The patient is a 70-year-old female who was referred to us for an outpouching in the epigastric region. This started several months ago; however, has grown larger in size and become painful. She underwent a ventriculoperitoneal shunt placed in 06/2019 for hydrocephalus and where the incision was made, the hernia was identified. The hernia was reducible. DESCRIPTION OF PROCEDURE: The patient was brought to the operating room, laid supine on the table. After adequate IV pain and sedative medications and general endotracheal intubation, the abdomen was prepped and draped in standard surgical fashion. A 0.5% Marcaine with epinephrine was used to anesthetize overlying skin in the epigastric region and a vertical skin incision made along the previous scar using a 15 blade. The subcutaneous tissue was then dissected using electrocautery. The hernia sac was identified and dissected out using electrocautery as well as blunt dissection. The ventriculoperitoneal shunt was identified and left intact. We decided to proceed with preperitoneal fascia underlay approach by dissecting out the peritoneal lining using electrocautery under direct visualization. Once enough space was made, an 8 cm coated polypropylene mesh was placed underneath the fascia. The mesh was then sutured in a transfascial manner with interrupted 0 Prolene sutures in a concentric manner around the mesh with visualization of good hemostasis. The subcutaneous tissue was then reapproximated using 3-0 Vicryl interrupted sutures. The skin was closed using 4-0 Monocryl running subcuticular suture. Wound was then cleaned and covered with Dermabond. We then placed a pressure dressing with tonsil sponges at the previous wound site followed by gauze and large Op-Site and abdominal binder. The patient tolerated the procedure well. We will start IV normal pain medication as well as a clear liquid diet. Once she is tolerating clears, has good pain control with oral pain medications, ambulating well, we will discharge her home. She will be instructed to do no heavy lifting or exertion for the next two weeks as well as to wear the abdominal binder at all times for the next two weeks as well. Job ID: [id number] DocumentID: [id number] Dictated Date: 07/29/2020 11:54:43 Bi Technical Lead Date: 07/29/2020 17:44:40 Dictated By: FABIEN ZAPATA MD
== END 2020-07-29 14:20 | disposition home or self-care (01) ==
LOC: SDC 08:19
PROVIDERS: ATTEND Surgery
DX: K43.2 Incisional hernia without obstruction or gangrene (principal); M62.89 Other specified disorders of muscle; I10 Essential (primary) hypertension; I25.10 Atherosclerotic heart disease of native coronary artery without angina pectoris; J43.9 Emphysema, unspecified; G43.909 Migraine, unspecified, not intractable, without status migrainosus; M19.90 Unspecified osteoarthritis, unspecified site; K21.9 Gastro-esophageal reflux disease without esophagitis; E03.9 Hypothyroidism, unspecified; E66.9 Obesity, unspecified; Z68.32 Body mass index [BMI] 32.0-32.9, adult; Z79.899 Other long term (current) drug therapy; Z88.0 Allergy status to penicillin; Z88.1 Allergy status to other antibiotic agents; Z91.018 Allergy to other foods; Z95.5 Presence of coronary angioplasty implant and graft; Z86.73 Personal history of transient ischemic attack (TIA), and cerebral infarction without residual deficits; Z80.1 Family history of malignant neoplasm of trachea, bronchus and lung; Z80.7 Family history of other malignant neoplasms of lymphoid, hematopoietic and related tissues; Z80.0 Family history of malignant neoplasm of digestive organs; Z83.3 Family history of diabetes mellitus
CPT/HCPCS: 49560; 49568; 87081; C1781

== ENCOUNTER → 2020-10-07 | Outpatient (CLI) | payer MEDICARE ==
[~2020-10-07] MED LIST changes: -ALEN70TA69 PO; +ALEN70TA80 PO; +HYDR-4227 PO; +MONT10TA32 PO; -MONT10TA97 PO
--- NOTE | 2020-10-07 09:43 | Diagnostic Imaging Report ---
INDICATION: Cough. TIME OF EXAM: 9:36 AM CORRELATION is made with prior chest from 09/11/2018. FINDINGS: The heart size is normal. The lungs are hyperinflated consistent with COPD. No infiltrates are detected. There is no effusion or pneumothorax. IMPRESSION: COPD. No other significant abnormality is detected. Dictated by: Dictated on workstation # [id number]
== END ==
LOC: RAD 09:12
PROVIDERS: ATTEND Family Medicine
DX: J44.9 Chronic obstructive pulmonary disease, unspecified (principal)
CPT/HCPCS: 71046

== ENCOUNTER → 2021-06-24 | Outpatient (CLI) | payer MEDICARE ==
[~2021-06-24] MED LIST changes: -OMEP40CA27 PO; +OMEP40CA6 PO; -SULF1TAB35 PO; +SULF1TAB38 PO
--- NOTE | 2021-06-24 12:55 | Diagnostic Imaging Report ---
INDICATION: Shortness of breath and cough. COMPARISON: 10/07/2020. FINDINGS: Frontal and lateral views of the chest demonstrate hyperinflation compatible with COPD. There are chronic interstitial changes in the lung bases. There is no acute infiltrate. No pneumothorax or effusion is seen. The heart is prominent without pulmonary edema. Osseous structures are stable. IMPRESSION: COPD with chronic changes in both bases. Dictated by: Dictated on workstation # [id number]
== END ==
LOC: RAD 11:47
PROVIDERS: ATTEND Family Medicine
DX: J44.9 Chronic obstructive pulmonary disease, unspecified (principal)
CPT/HCPCS: 71046

== ENCOUNTER → 2021-08-11 | Outpatient (CLI) | payer MEDICARE ==
[~2021-08-11] MED LIST changes: +MONT-40 PO; -MONT10TA32 PO
--- NOTE | 2021-08-11 17:16 | Diagnostic Imaging Report ---
INDICATION: Acute cough. EXAMINATION: PA and lateral views of the chest were obtained. COMPARISON: Study of 06/24/2021. FINDINGS: Heart size and pulmonary vascularity remain within normal limits. There is air trapping in the upper lobes, bilaterally. Prominent interstitial markings indicate probable associated COPD. There is linear atelectasis or scarring in the lung bases. No consolidation or pneumothorax is identified. Ventricular peritoneal shunt tubing is noted. IMPRESSION: Probable COPD without acute abnormality or significant change detected. Dictated by: Dictated on workstation # [id number]
== END ==
LOC: RAD 16:58
PROVIDERS: ATTEND Physician Assistant
DX: J43.8 Other emphysema (principal); J20.8 Acute bronchitis due to other specified organisms; M19.90 Unspecified osteoarthritis, unspecified site; K21.9 Gastro-esophageal reflux disease without esophagitis; J16.8 Pneumonia due to other specified infectious organisms; Z20.822 Contact with and (suspected) exposure to COVID-19
CPT/HCPCS: 71046

== ENCOUNTER → 2021-08-26 | Outpatient (CLI) | payer MEDICARE | LOC: LABNPT 06:43 | PROVIDERS: ATTEND Family Medicine | DX: R05.9 Cough, unspecified (principal); R09.89 Other specified symptoms and signs involving the circulatory and respiratory systems; Z20.822 Contact with and (suspected) exposure to COVID-19 | CPT/HCPCS: 87635 ==

== ENCOUNTER 2021-10-09 12:06 | Emergency (ER) | payer MEDICARE ==
[~2021-10-09] VITALS: Ht 176 cm; Wt 109.0 kg
[2021-10-09] MEDS ORDERED: HYDROcodone/APAP 5 MG/325 MG (LORTAB) TAB PO ONE (13:30)
[2021-10-09] MEDS ORDERED: ACHD5005 PO (13:31)
--- NOTE | 2021-10-09 13:32 | ED Chest Pain ---
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 PAIN IN RT POSTERIOR Source: patient Exam Limitations: no limitations History of Present Illness Date Seen by Provider: Oct 09, 2021 Time Seen by Provider: 13:28 Initial Comments To ER with reports of right lateral lower chest wall pain in the ribs worse with deep breathing that started suddenly just prior to arrival after a coughing fit she felt a popping sensation. She had COVID in July 2021, she has COPD. Timing/Duration: 1 hour Severity/Quality: moderate Location: other Radiation: no radiation Activities at Onset: none ASA po PIECE GOODS CLERK: No NTG SL PIECE GOODS CLERK: No Associated Symptoms: denies symptoms Allergies and Home Medications Allergies Coded Allergies: erythromycin base (Verified Allergy, Intermediate, HIVES, 07/23/20) gluten (Verified Allergy, Mild, HEADACHES, 07/23/20) Penicillins (Unverified Allergy, Unknown, FROM CHILDHOOD, 07/23/20) Patient Home Medication List Home Medication List Reviewed: Yes Alendronate Sodium (Alendronate Sodium) 70 Mg Tablet, 70 MG PO Denise, (Reported) Entered as Reported by: YAS NGUYEN on 12/28/15 0815 Benzonatate (Benzonatate) 100 Mg Capsule, 100 MG PO DAILY, (Reported) Entered as Reported by: YAS NGUYEN on 07/23/20 1329 Bupropion HCl (Bupropion HCl Sr) 150 Mg Tablet.er, 150 MG PO DAILY, (Reported) Entered as Reported by: YAS NGUYEN on 07/23/20 1329 Cetirizine HCl (Zyrtec) 10 Mg Tablet, 10 MG PO DAILY, (Reported) Entered as Reported by: YAS NGUYEN on 07/23/20 1329 Cholecalciferol (Vitamin D3) (Vitamin D3) 125 Mcg Capsule, 125 MCG PO DAILY, (Reported) Entered as Reported by: YAS NGUYEN on 07/23/20 1329 Cyclobenzaprine HCl (Cyclobenzaprine HCl) 5 Mg Tablet, 5 MG PO DAILY, (Reported) Entered as Reported by: YAS NGUYEN on 07/23/20 1329 Hydrocodone/Acetaminophen ([place]ridge 7.5-325 Tablet) 1 Each Tablet, 1-2 TAB PO Q4H Prescribed by: SAMIRA DURON on 07/29/20 0838 Hydrocodone/Acetaminophen (Hydrocodone-Acetamin 5-325 mg) 1 Each Tablet, 1 TAB PO Q4H PRN for PAIN-MODERATE (5-7) Prescribed by: CAMILLA DAHL on 10/09/21 1331 Hydroxychloroquine Sulfate (Hydroxychloroquine Sulfate) 200 Mg Tablet, 200 MG PO DAILY, (Reported) Entered as Reported by: YAS NGUYEN on 07/23/20 1329 Levocetirizine Dihydrochloride (Levocetirizine Dihydrochloride) 5 Mg Tablet, 5 MG PO DAILY, (Reported) Entered as Reported by: YAS NGUYEN on 07/23/20 1329 Levothyroxine Sodium (Synthroid) 100 Mcg Tablet, 100 MCG PO DAILY, (Reported) Entered as Reported by: YAS NGUYEN on 05/23/18 1051 Losartan/Hydrochlorothiazide (Losartan-Hctz 50-12.5 mg Tab) 1 Each Tablet, 1 EACH PO DAILY, (Reported) Entered as Reported by: YAS NGUYEN on 07/23/20 1329 Montelukast Sodium (Montelukast Sodium) 10 Mg Tablet, 10 MG PO HS, (Reported) Entered as Reported by: YAS NGUYEN on 12/28/15 0815 Omeprazole (Omeprazole) 40 Mg Capsule.dr, 40 MG PO DAILY, (Reported) Entered as Reported by: YAS NGUYEN on 07/23/20 1329 Potassium Chloride (Potassium Chloride) 20 Meq Tablet.er, 20 MEQ PO DAILY, (Reported) Entered as Reported by: YAS NGUYEN on 07/23/20 1329 Tiotropium Br/Olodaterol HCl (Stiolto Respimat Inhal Rosebud) 4 Gm Mist.inhal, 4 GM IH BID, (Reported) Entered as Reported by: YAS NGUYEN on 07/23/20 1329 Umeclidinium Brm/Vilanterol Tr (Anoro Ellipta 62.5-25 Mcg INH) 1 Each Blst.w.dev, 1 EACH IH DAILY, (Reported) Entered as Reported by: YAS NGUYEN on 07/23/20 1329 Review of Systems Review of Systems Constitutional: see HPI EENTM: No Symptoms Reported Respiratory: See HPI, Cough Cardiovascular: No Symptoms Reported Gastrointestinal: No Symptoms Reported Genitourinary: No Symptoms Reported Musculoskeletal: no symptoms reported Skin: no symptoms reported Psychiatric/Neurological: No Symptoms Reported Endocrine: No Symptoms Reported Hematologic/Lymphatic: No Symptoms Reported Past Morrgco-Xdnptq-Cotgcs Hx Patient Social History Tobacco Use?: Yes Tobacco type used: Cigarettes Smoking Status: Current Everyday Smoker Substance use?: No Alcohol Use?: Yes Alcohol type: Beer Alcohol Frequency: Rarely Immunizations Up To Date Tetanus Booster (TDap): Unknown PED Vaccines UTD: No Second COVID19 Vaccination Richard: 07/2021 Seasonal Allergies Seasonal Allergies: Yes Past Medical History Surgery/Hospitalization HX: SHUNT IN HEAD, RT KNEE REPLACED Surgeries: Yes (RIGHT TKR, VENTRAL HERNIA x2, EXPLORATORY LAP, KNEE SCOPES) Coronary Stent, Hysterectomy Respiratory: Yes Asthma, COPD, Emphysema Currently Using CPAP: No Currently Using BIPAP: No Cardiac: Yes (stent) Coronary Artery Disease, Hypertension Neurological: Yes Headaches /Migraines, TIA Reproductive Disorders: No Female Reproductive Disorders: Ovarian Cyst Sexually Transmitted Disease: No HIV/AIDS: No Genitourinary: Yes Kidney Stones Gastrointestinal: Yes Gastroesophageal Reflux, Diverticulosis, Polyps Musculoskeletal: Yes (left knee medial tear) Arthritis, Fibromyalgia Endocrine: Yes Hypothyroidsim HEENT: No (GLASSES, DENTURES) Loss of Vision: Denies Hearing Impairment: Denies Cancer: No Psychosocial: Yes Anxiety Integumentary: No Blood Disorders: No Adverse Reaction/Blood Tranf: No (N/A) Family Medical History Arthritis G8 BROTHER Cardiovascular disease 19 FATHER Colon cancer 19 MOTHER Diabetes mellitus G8 BROTHER Hypertension 19 MOTHER G8 BROTHER Myocardial infarction 19 FATHER Respiratory disorder 19 FATHER (lung) Thyroid disease 19 MOTHER Physical Exam Vital Signs Vital Signs - First Documented 10/09/21 12:45 Temp 37.0 Pulse 88 Resp 20 B/P (MAP) 148/77 (100) O2 Delivery Room Air Capillary Refill : Less Than 3 Seconds Height, Weight, BMI Height: 5'9.00" Weight: 184lbs. 0.0oz. 83.263966ui; 35.00 BMI Method:Stated General Appearance: No Apparent Distress, WD/WN, Other (And oriented no distress) Neck: Full Range of Motion, Normal Inspection Respiratory: No Accessory Muscle Use, No Respiratory Distress Cardiovascular: Regular Rate, Rhythm, Normal Peripheral Pulses Gastrointestinal: Normal Bowel Sounds, Non Tender, Soft Extremity: Normal Capillary Refill, Normal Inspection Neurologic/Psychiatric: Alert, Oriented x3 Skin: Normal Color, Warm/Dry Progress/Results/Core Measures Results/Orders My Orders Orders - CAMILLA DAHL APRN Ribs/Unilateral With Chest (10/09/21 12:55) Hydrocodone/Apap 5/325 Tablet (Lortab 5 (10/09/21 13:30) Incentive Spirometry Initial (10/09/21 13:38) Incentive Spirometry (Nursing) Q2H (10/09/21 13:38) Medications Given in ED Current Medications Medications Dose Ordered Sig/Cathy Route Start Time Stop Time Status Last Admin Dose Admin Acetaminophen/ Hydrocodone Bitart 1 ea ONCE ONCE PO 10/09/21 13:30 10/09/21 13:31 DC 10/09/21 13:34 1 EA Vital Signs/I&O 10/09/21 10/09/21 12:45 13:34 Temp 37.0 37.0 Pulse 88 Resp 20 B/P (MAP) 148/77 (100) O2 Delivery Room Air Blood Pressure Mean: 100 Departure Communication (Admissions) Patient states that she already has an incentive spirometer at home. Impression Primary Impression: Rib pain Disposition: 01 HOME, SELF-CARE Condition: Stable Departure-Patient Inst. Decision time for Depature: 13:30 Referrals: UDAY HU DO (PCP/Family) Primary Care Physician Patient Instructions: Rib Fracture (DC) Add. Discharge Instructions: We do not see a rib fracture on the x-ray. However, your symptoms are consistent with a fracture. Use the incentive spirometer taking a deep breath couple of times an hour while you are awake. This will help reduce the likelihood of developing a pneumonia. Pain medication as directed. Follow-up with your doctor later this week. Return to ER for any worsening. All discharge instructions reviewed with patient and/or family. Voiced understanding. Scripts Hydrocodone/Acetaminophen (Hydrocodone-Acetamin 5-325 mg) 1 Each Tablet 1 TAB PO Q4H PRN for PAIN-MODERATE (5-7), #20 TAB Prov: CAMILLA DAHL APRN 10/09/21 CAMILLA DAHL APRN Oct 09, 2021 13:32
--- NOTE | 2021-10-09 13:34 | Diagnostic Imaging Report ---
EXAMINATION: Left ribs unilateral 2 view HISTORY: Chest wall pain COMPARISON: 08/11/2021 FINDINGS: Shunt catheter projects over the chest. No rib fracture is seen. The lungs are clear. No edema. No pneumonia. No pleural effusion. No pneumothorax. Heart is normal in size. IMPRESSION: 1. Clear lungs. 2. No right-sided rib fracture seen. Dictated by: Dictated on workstation # [id number]
[2021-10-09 14:00] VITALS: BP 148/77
== END 2021-10-09 14:00 | disposition home or self-care (01) ==
LOC: EDUNIT# 12:06 → ER 12:08
DX: R07.81 Pleurodynia (principal); F17.210 Nicotine dependence, cigarettes, uncomplicated; Z86.16 Personal history of COVID-19
CPT/HCPCS: 71101

== ENCOUNTER → 2021-11-21 | Outpatient (CLI) | payer MEDICARE ==
[~2021-11-21] MED LIST changes: +DOXY100T2 PO
--- NOTE | 2021-11-21 14:03 | Diagnostic Imaging Report ---
INDICATION: Left foot pain. FINDINGS: 3 views. There are no fractures or dislocation. The articulating surfaces are smooth. Joint spaces are well maintained. IMPRESSION: Negative left foot. Dictated by: Dictated on workstation # [id number]
--- NOTE | 2021-11-21 14:04 | Diagnostic Imaging Report ---
INDICATION: Pain and swelling to left ankle. FINDINGS: 3 views. There is generalized swelling about the ankle. Ankle mortise is in good alignment. Articulating surfaces are smooth. Joint spaces are well maintained. No fractures are seen. There is calcification within the Achilles tendon at the calcaneal attachment. IMPRESSION: 1. Soft tissue swelling with no bony abnormalities demonstrated about the ankle mortise. Dictated by: Dictated on workstation # [id number]
== END ==
LOC: RAD 10:03
PROVIDERS: ATTEND Family Medicine
DX: M25.472 Effusion, left ankle (principal); M25.572 Pain in left ankle and joints of left foot
CPT/HCPCS: 73610; 73630

== ENCOUNTER 2021-11-23 14:33 | Emergency (ER) | payer MEDICARE ==
[~2021-11-23] VITALS: Ht 175 cm; Wt 106.5 kg
[~2021-11-23 14:33] MED LIST changes: -DOXY100T2 PO
[2021-11-23 15:07] LABS: BASOPHILS # (AUTO) 0.1 10^3/uL (0.0-0.1); BASOPHILS % (AUTO) 1 % (0-10); EOSINOPHILS # (AUTO) 0.2 10^3/uL (0.0-0.3); EOSINOPHILS % (AUTO) 1 % (0-10); HEMATOCRIT 50 % (35-52); HEMOGLOBIN 16.4 g/dL (11.5-16.0); LYMPHOCYTES # (AUTO) 3.3 10^3/uL (1.0-4.0); LYMPHOCYTES % (AUTO) 23 % (12-44); MEAN CORPUSCULAR HEMOGLOBIN 32 pg (25-34); MEAN CORPUSCULAR HGB CONC 33 g/dL (32-36); MEAN CORPUSCULAR VOLUME 96 fL (80-99); MEAN PLATELET VOLUME 10.3 fL (9.0-12.2); MONOCYTES # (AUTO) 1.2 10^3/uL (0.0-1.0); MONOCYTES % (AUTO) 8 % (0-12); NEUTROPHILS # (AUTO) 9.8 10^3/uL (1.8-7.8); NEUTROPHILS % (AUTO) 67 % (42-75); PLATELET COUNT 326 10^3/uL (130-400); WHITE BLOOD COUNT 14.6 10^3/uL (4.3-11.0)
[2021-11-23 15:25] LABS: ALBUMIN 4.5 GM/DL (3.2-4.5)
[2021-11-23 15:27] LABS: CALCIUM 9.9 MG/DL (8.5-10.1)
[2021-11-23 15:28] LABS: TOTAL PROTEIN 7.5 GM/DL (6.4-8.2)
[2021-11-23 15:29] LABS: BAND NEUTROPHILS 1 %; BILIRUBIN,TOTAL 0.5 MG/DL (0.1-1.0); EOSINOPHILS % (MANUAL) 1 %; LYMPHOCYTES % (MANUAL) 30 %; MONOCYTES % (MANUAL) 4 %; NEUTROPHILS % (MANUAL) 64 %; RBC MORPH NORMAL
[2021-11-23 15:31] LABS: CREATININE SERUM 0.93 MG/DL (0.60-1.30)
--- NOTE | 2021-11-23 15:51 | ED Respiratory ---
General Chief Complaint: Respiratory Problems Stated Complaint: SOA - COUGH - CONGESTION - BODYACHES Nursing Triage Note: PT PRESENTS TO ED WITH COMPLAINTS OF SOA AND COUGH X 6 MONTHS. PT REPORTS SHE SAW DR HU SUNDAY FOR SAME S/S BUT SHE DIDNT DO ANYTHING. PT DENIES ANY FEVER. PT ALSO REPORTS R SIDED RIB PAIN FROM COUGHING. Source: patient Exam Limitations: no limitations (BRENDON DE LOS SANTOS APRN) History of Present Illness Date Seen by Provider: Nov 23, 2021 Time Seen by Provider: 15:31 Initial Comments This is a 71-year-old female who presented to the ER with complaints of shortness of air and right lateral rib pain x2 weeks. States she has been having increasing shortness of air and cough over the past 6 months. Complaint that she has been seen by her primary care provider" she has not done anything". Denies any falls or trauma. States that her symptoms developed because of her persistent cough. (BRENDON DE LOS SANTOS APRN) Allergies and Home Medications Allergies Coded Allergies: erythromycin base (Verified Allergy, Intermediate, HIVES, 07/23/20) gluten (Verified Allergy, Mild, HEADACHES, 07/23/20) Penicillins (Unverified Allergy, Unknown, FROM CHILDHOOD, 07/23/20) Patient Home Medication List Home Medication List Reviewed: Yes (BRENDON DE LOS SANTOS APRN) Alendronate Sodium (Alendronate Sodium) 70 Mg Tablet, 70 MG PO Denise, (Reported) Entered as Reported by: YAS NGUYEN on 12/28/15 0815 Benzonatate (Benzonatate) 100 Mg Capsule, 100 MG PO DAILY, (Reported) Entered as Reported by: YAS NGUYEN on 07/23/20 1329 Bupropion HCl (Bupropion HCl Sr) 150 Mg Tablet.er, 150 MG PO DAILY, (Reported) Entered as Reported by: YAS NGUYEN on 07/23/20 1329 Cetirizine HCl (Zyrtec) 10 Mg Tablet, 10 MG PO DAILY, (Reported) Entered as Reported by: YAS NGUYEN on 07/23/20 1329 Cholecalciferol (Vitamin D3) (Vitamin D3) 125 Mcg Capsule, 125 MCG PO DAILY, (Reported) Entered as Reported by: YAS NGUYEN on 07/23/20 1329 Cyclobenzaprine HCl (Cyclobenzaprine HCl) 5 Mg Tablet, 5 MG PO DAILY, (Reported) Entered as Reported by: YAS NGUYEN on 07/23/20 1329 Doxycycline Hyclate (Doxycycline Hyclate) 100 Mg Tablet, 100 MG PO BID Prescribed by: BRENDON DE LOS SANTOS on 11/23/21 190 Hydrocodone/Acetaminophen (Sullivan 7.5-325 Tablet) 1 Each Tablet, 1-2 TAB PO Q4H Prescribed by: SAMIRA DURON on 07/29/20 0838 Hydrocodone/Acetaminophen (Hydrocodone-Acetamin 5-325 mg) 1 Each Tablet, 1 TAB PO Q4H PRN for PAIN-MODERATE (5-7) Prescribed by: CAMILLA DAHL on 10/09/21 1331 Hydrocodone/Acetaminophen (Hydrocodone-Acetamin 5-325 mg) 1 Each Tablet, 1 TAB PO Q6H PRN for PAIN-MODERATE (5-7) Prescribed by: BRENDON DE LOS SANTOS on 11/23/21 190 Hydroxychloroquine Sulfate (Hydroxychloroquine Sulfate) 200 Mg Tablet, 200 MG PO DAILY, (Reported) Entered as Reported by: YAS NGUYEN on 07/23/20 1329 Levocetirizine Dihydrochloride (Levocetirizine Dihydrochloride) 5 Mg Tablet, 5 MG PO DAILY, (Reported) Entered as Reported by: YAS NGUYEN on 07/23/20 1329 Levothyroxine Sodium (Synthroid) 100 Mcg Tablet, 100 MCG PO DAILY, (Reported) Entered as Reported by: YAS NGUYEN on 05/23/18 1051 Losartan/Hydrochlorothiazide (Losartan-Hctz 50-12.5 mg Tab) 1 Each Tablet, 1 EACH PO DAILY, (Reported) Entered as Reported by: YAS NGUYEN on 07/23/20 1329 Montelukast Sodium (Montelukast Sodium) 10 Mg Tablet, 10 MG PO HS, (Reported) Entered as Reported by: YAS NGUYEN on 12/28/15 0815 Omeprazole (Omeprazole) 40 Mg Capsule.dr, 40 MG PO DAILY, (Reported) Entered as Reported by: YAS NGUYEN on 07/23/20 1329 Potassium Chloride (Potassium Chloride) 20 Meq Tablet.er, 20 MEQ PO DAILY, (Reported) Entered as Reported by: YAS NGUYEN on 07/23/20 1329 Tiotropium Br/Olodaterol HCl (Stiolto Respimat Inhal [place]) 4 Gm Mist.inhal, 4 GM IH BID, (Reported) Entered as Reported by: YAS NGUYEN on 07/23/20 1329 Umeclidinium Brm/Vilanterol Tr (Anoro Ellipta 62.5-25 Mcg INH) 1 Each Blst.w.dev, 1 EACH IH DAILY, (Reported) Entered as Reported by: YAS NGUYEN on 07/23/20 1329 Review of Systems Review of Systems Constitutional: no symptoms reported EENTM: no symptoms reported Respiratory: cough, short of breath Cardiovascular: no symptoms reported Gastrointestinal: no symptoms reported Genitourinary: no symptoms reported Musculoskeletal: see HPI Skin: no symptoms reported Psychiatric/Neurological: No Symptoms Reported Hematologic/Lymphatic: No Symptoms Reported Immunological/Allergic: no symptoms reported (BRENDON DE LOS SANTOS APRN) Past Bapkudz-Vqpvbw-Otwdrw Hx Patient Social History Tobacco Use?: Yes Tobacco type used: Cigarettes Smoking Status: Current Everyday Smoker Substance use?: No Alcohol Use?: No Pt feels they are or have been: No (BRENDON DE LOS SANTOS APRN) Immunizations Up To Date Tetanus Booster (TDap): Unknown PED Vaccines UTD: No First/Initial COVID19 Vaccinat: 07/2021 Second COVID19 Vaccination Richard: 07/2021 Third COVID19 Vaccination Date: 07/2021 COVID19 Vaccine Labourers: enoch (BRENDON DE LOS SANTOS APRN) Seasonal Allergies Seasonal Allergies: Yes (BRENDON DE LOS SANTOS APRN) Past Medical History Surgery/Hospitalization HX: SHUNT IN HEAD, RT KNEE REPLACED,lap marcell, tubal, oopherectomy pmh: copd, htn, high chol Surgeries: Yes (RIGHT TKR, VENTRAL HERNIA x2, EXPLORATORY LAP, KNEE SCOPES) Coronary Stent, Hysterectomy Respiratory: Yes Asthma, COPD, Emphysema Currently Using CPAP: No Currently Using BIPAP: No Cardiac: Yes (stent) Coronary Artery Disease, Hypertension Neurological: Yes Headaches /Migraines, TIA Reproductive Disorders: No Female Reproductive Disorders: Ovarian Cyst Sexually Transmitted Disease: No HIV/AIDS: No Genitourinary: Yes Kidney Stones Gastrointestinal: Yes Gastroesophageal Reflux, Diverticulosis, Polyps Musculoskeletal: Yes (left knee medial tear) Arthritis, Fibromyalgia Endocrine: Yes Hypothyroidsim HEENT: No (GLASSES, DENTURES) Loss of Vision: Denies Hearing Impairment: Denies Cancer: No Psychosocial: Yes Anxiety Integumentary: No Blood Disorders: No Adverse Reaction/Blood Tranf: No (N/A) (BRENDON DE LOS SANTOS APRN) Family Medical History Arthritis G8 BROTHER Cardiovascular disease 19 FATHER Colon cancer 19 MOTHER Diabetes mellitus G8 BROTHER Hypertension 19 MOTHER G8 BROTHER Myocardial infarction 19 FATHER Respiratory disorder 19 FATHER (lung) Thyroid disease 19 MOTHER Physical Exam Vital Signs - First Documented 11/23/21 14:53 Temp 35.5 Pulse 84 Resp 16 B/P (MAP) 185/91 (122) Pulse Ox 96 (PUMA LAZCANO MD) Capillary Refill : Less Than 3 Seconds (BRENDON DE LOS SANTOS APRN) Height: 5'9.00" Weight: 184lbs. 0.0oz. 83.942020zt; 34.00 BMI Method:Stated General Appearance: WD/WN, no apparent distress Eyes: Bilateral Eye Normal Inspection, Bilateral Eye PERRL, Bilateral Eye EOMI HEENT: PERRL/EOMI, normal ENT inspection Neck: full range of motion, normal inspection Respiratory: lungs clear, normal breath sounds, no respiratory distress, no accessory muscle use, other (right lateral rib tenderness under axillae) Cardiovascular: regular rate, rhythm, no murmur Gastrointestinal: normal bowel sounds, non tender, soft Extremities: normal range of motion, normal inspection Neurologic/Psychiatric: no motor/sensory deficits, alert, normal mood/affect, oriented x 3, other (poor historian ) Skin: warm/dry (BRENDON DE LOS SANTOS APRN) Focused Exam Lactate Level 11/23/21 16:09: Lactic Acid Level 2.26*H (PUMA LAZCANO MD) Lactic Acid Level Laboratory Tests Test 11/23/21 16:09 Lactic Acid Level 2.26 MMOL/L (0.50-2.00) *H (PUMA LAZCANO MD) Progress/Results/Core Measures Suspected Sepsis SIRS Temperature: Pulse: 84 Respiratory Rate: 16 Laboratory Tests 11/23/21 15:01: White Blood Count 14.6H Blood Pressure 185 /91 Mean: 122 11/23/21 16:09: Lactic Acid Level 2.26*H Laboratory Tests 11/23/21 15:01: Creatinine 0.93, Platelet Count 326, Total Bilirubin 0.5 (BRENDON DE LOS SANTOS APRN) Results/Orders Lab Results Laboratory Tests Test 11/23/21 15:01 11/23/21 16:09 Range/Units White Blood Count 14.6 H 4.3-11.0 10^3/uL Red Blood Count 5.21 H 3.80-5.11 10^6/uL Hemoglobin 16.4 H 11.5-16.0 g/dL Hematocrit 50 35-52 % Mean Corpuscular Volume 96 80-99 fL Mean Corpuscular Hemoglobin 32 25-34 pg Mean Corpuscular Hemoglobin Concent 33 32-36 g/dL Red Cell Distribution Width 13.5 10.0-14.5 % Platelet Count 326 130-400 10^3/uL Mean Platelet Volume 10.3 9.0-12.2 fL Immature Granulocyte % (Auto) 1 % Neutrophils (%) (Auto) 67 42-75 % Lymphocytes (%) (Auto) 23 12-44 % Monocytes (%) (Auto) 8 0-12 % Eosinophils (%) (Auto) 1 0-10 % Basophils (%) (Auto) 1 0-10 % Neutrophils # (Auto) 9.8 H 1.8-7.8 10^3/uL Lymphocytes # (Auto) 3.3 1.0-4.0 10^3/uL Monocytes # (Auto) 1.2 H 0.0-1.0 10^3/uL Eosinophils # (Auto) 0.2 0.0-0.3 10^3/uL Basophils # (Auto) 0.1 0.0-0.1 10^3/uL Immature Granulocyte # (Auto) 0.1 0.0-0.1 10^3/uL Neutrophils % (Manual) 64 % Lymphocytes % (Manual) 30 % Monocytes % (Manual) 4 % Eosinophils % (Manual) 1 % Band Neutrophils 1 % Blood Morphology Comment NORMAL Sodium Level 141 135-145 MMOL/L Potassium Level 4.0 3.6-5.0 MMOL/L Chloride Level 104 98-107 MMOL/L Carbon Dioxide Level 22 21-32 MMOL/L Anion Gap 15 H 5-14 MMOL/L Blood Urea Nitrogen 12 7-18 MG/DL Creatinine 0.93 0.60-1.30 MG/DL Estimat Glomerular Filtration Rate 67 BUN/Creatinine Ratio 13 Glucose Level 103 70-105 MG/DL Calcium Level 9.9 8.5-10.1 MG/DL Corrected Calcium 9.5 8.5-10.1 MG/DL Total Bilirubin 0.5 0.1-1.0 MG/DL Aspartate Amino Transf (AST/SGOT) 17 5-34 U/L Alanine Aminotransferase (ALT/SGPT) 30 0-55 U/L Alkaline Phosphatase 75 40-136 U/L Troponin I < 0.028 <0.028 NG/ML B-Type Natriuretic Peptide 25.6 <100.0 PG/ML Total Protein 7.5 6.4-8.2 GM/DL Albumin 4.5 3.2-4.5 GM/DL Procalcitonin 0.03 <0.10 NG/ML Influenza Type A (RT-PCR) Not Detected Not Detecte Influenza Type B (RT-PCR) Not Detected Not Detecte SARS-CoV-2 RNA (RT-PCR) Not Detected Not Detecte Lactic Acid Level 2.26 *H 0.50-2.00 MMOL/L (PUMA LAZCANO MD) Micro Results Microbiology 11/23/21 Blood Culture - Preliminary, Resulted Staph, Coag Neg (SPECIAL POLICE OFFICER) (PUMA LAZCANO MD) Vital Signs/I&O 11/23/21 11/23/21 14:53 19:13 Temp 35.5 Pulse 84 93 Resp 16 20 B/P (MAP) 185/91 (122) 134/85 Pulse Ox 96 94 (PUMA LAZCANO MD) Vital Signs/I&O Capillary Refill : Less Than 3 Seconds (BRENDON DE LOS SANTOS APRN) Blood Pressure Mean: 122 Progress Note : Progress Note Patient examined and in no acute distress. States that she had an x-ray done 2 weeks ago which "did not show anything". Continue denies any falls or trauma. States that she has persistent coughing and was told by her PCP to take zcod-shx-hwtoujn cough syrup which is not helping. Labs and imaging reviewed. Cardiac workup negative. She was noted to have elevated WBC at 14.6 with a lactic at 2.26. Orders placed for normal saline bolus, chest x-ray was unremarkable orders placed for CT chest with contrast. CT chest shows displaced fractures of the right posterior 7th and 8th ribs with hyperdensity deep to the 8th rib likely hematoma. Reviewed findings with Dr. Caceres. Will have patient follow up with PCP later this week. (BRENDON DE LOS SANTOS APRN) ECG Initial ECG Impression Date: Nov 23, 2021 Initial ECG Impression Time: 16:09 Initial ECG Rate: 81 Initial ECG Rhythm: Normal Sinus Initial ECG Intervals: Normal Initial ECG Impression: Normal (BRENDON DE LOS SANTOS APRN) Diagnostic Imaging Diagonstic Imaging: CT Comments [facility], [place] NAME: FLAVIO ALVARADO Edyta [facility] REC#: [id number] PT STATUS: REG ER : 1950 PHYSICIAN: BRENDON DE LOS SANTOS APRN ADMIT DATE: 11/23/21/ER Draft Date of Exam:11/23/21 CT CHEST W PROCEDURE: CT chest with contrast only. TECHNIQUE: Multiple contiguous axial images were obtained through the chest after administration of intravenous contrast. Auto Exposure Controls were utilized during the CT exam to meet ALARA standards for radiation dose reduction. INDICATION: Shortness of air with cough x6 months. Rib pain with coughing EXAMINATION: CT chest with contrast 11/23/2021 FINDINGS: There is atherosclerotic disease throughout the aorta which is otherwise unremarkable. Pulmonary arteries not well evaluated as this is not a dedicated CTA of the chest. No mediastinal or hilar adenopathy appreciated. Within the lungs, coarsened interstitial markings appear to represent chronic interstitial disease. There is multifocal pleural thickening along the posterior lateral aspect of the right hemithorax with a more focal hyperdensity noted anterior to the right likely 8th rib suspicious for a small hematoma. An active blush/bleed is not appreciated. There is an underlying displaced fracture of the 8th posterior lateral rib. A slightly displaced fracture of the right 7th rib is also noted. The visualized upper abdominal structures demonstrate no acute abnormality. There is a compression fracture at T11, which is stable from previous examination. IMPRESSION: 1. Displaced fractures of the right posterior 7th and 8th ribs with hyperdensity deep to the 8th rib likely hematoma. A mass would be in the differential but is felt to be less likely. Follow-up could reevaluate. Pleural thickening or fluid is noted on the right likely reactive. 2. Chronic interstitial changes throughout the lungs as above. Dictated on workstation # [id number] Dict: 11/23/21 1759 Trans: 11/23/21 1812 [id number] Interpreted by: JAZMIN WEAVER MD Electronically signed by: Rolly Imaging: Xray Comments [facility], [place] NAME: FLAVIO ALVARADO [facility] REC#: [id number] PT STATUS: REG ER : 1950 PHYSICIAN: BRENDON DE LOS SANTOS APRN ADMIT DATE: 11/23/21/ER Signed Date of Exam:11/23/21 CHEST 1 VIEW, AP/PA ONLY INDICATION: Cough. TECHNIQUE: Frontal chest obtained at 03:58 p.m. and compared to 08/11/2021. FINDINGS: Heart and mediastinal silhouette are normal in appearance. There is COPD change with biapical bullous disease. There are chronic-appearing increased basilar markings. There is no new consolidation or pneumothorax or pleural fluid. IMPRESSION: COPD changes and chronic interstitial disease. No acute consolidation or pleural fluid. Dictated by: Dictated on workstation # [id number] Dict: 11/23/21 1615 Trans: 11/23/21 1647 [id number] Interpreted by: GOPI MONK MD Electronically signed by: GOPI MONK MD 11/23/21 902 (BRENDON DE LOS SANTOS VACUUM PAN TENDER) Departure Impression Primary Impression: Multiple rib fractures Disposition: 01 HOME, SELF-CARE Condition: Improved Departure-Patient Inst. Decision time for Depature: 19:08 (BRENDON DE LOS SANTOS VACUUM PAN TENDER) Referrals: UDAY HU DO (PCP/Family) Primary Care Physician Patient Instructions: Rib Fracture (DC) Add. Discharge Instructions: Plan: 1. Take all of your antibiotics as directed and complete full course even if you begin to feel better. Make sure you drink plenty of fluids. Avoid direct sunlight as this medication can cause your skin to become very sensitive. 2. Follow up with Dr. Caceres early next week. Please call to schedule your follow up appointment. 3. Take Hydrocodone for severe pain. Take as directed. Do not drive while taking. 4. Use incentive spirometer 10x at leat 4 times a day. 5. Splint with pillow during incentive spirometer exercises and with coughing. You can continue your over the counter cough medications. 6. Return for any new, concerning, or worsening symptoms. TAKE ANTIBIOTICS AT LEAST 2 HOURS BEFORE YOU TAKE ANY OF YOUR MORNING OR EVENING MEDICATIONS. All discharge instructions reviewed with patient and/or family. Voiced understanding. All discharge instructions reviewed with patient and/or family. Voiced understanding. Scripts Hydrocodone/Acetaminophen (Hydrocodone-Acetamin 5-325 mg) 1 Each Tablet 1 TAB PO Q6H PRN for PAIN-MODERATE (5-7), #10 TAB 0 Refills Prov: BRENDON DE LOS SANTOS VACUUM PAN TENDER 11/23/21 Doxycycline Hyclate (Doxycycline Hyclate) 100 Mg Tablet 100 MG PO BID for 7 Days, #14 TAB 0 Refills Prov: BRENDON DE LOS SANTOS VACUUM PAN TENDER 11/23/21 ATTENDING PHYSICIAN NOTE: I was physically present as attending physician in the emergency department during the care of this patient, but I was not directly involved in the decision making or delivery of care for this patient. (PUMA LAZCANO MD) Copy Copies To 1: UDAY HU STORMY D VACUUM PAN TENDER Nov 23, 2021 15:50 PUMA LAZCANO MD Nov 26, 2021 06:48
--- NOTE | 2021-11-23 16:22 | Diagnostic Imaging Report ---
INDICATION: Cough. TECHNIQUE: Frontal chest obtained at 03:58 p.m. and compared to 08/11/2021. FINDINGS: Heart and mediastinal silhouette are normal in appearance. There is COPD change with biapical bullous disease. There are chronic-appearing increased basilar markings. There is no new consolidation or pneumothorax or pleural fluid. IMPRESSION: COPD changes and chronic interstitial disease. No acute consolidation or pleural fluid. Dictated by: Dictated on workstation # [id number]
[2021-11-23] MEDS ORDERED: NS IV 1000 ML 1,000 ML IV ONE (17:00)
[2021-11-23] MEDS ORDERED: fentaNYL INJ 100 MCG/2 ML AMP IVP ONE (17:30)
[2021-11-23] MEDS ORDERED: HOLD METFORMIN - RECEIVED CONTRAST 20 ML VIAL IV SCH (17:30)
[2021-11-23] MEDS ORDERED: NS 100 ML (IVPB) BAG IV ONE (17:30)
[2021-11-23] MEDS ORDERED: IOHEXOL 350 MG/ML 100 ML (OMNIPAQUE 350) VIAL IV ONE (17:30)
[2021-11-23] MEDS ORDERED: CATHETER FLUSH 10 ML SYR IV PRN (17:30)
--- NOTE | 2021-11-23 18:13 | Diagnostic Imaging Report ---
PROCEDURE: CT chest with contrast only. TECHNIQUE: Multiple contiguous axial images were obtained through the chest after administration of intravenous contrast. Auto Exposure Controls were utilized during the CT exam to meet ALARA standards for radiation dose reduction. INDICATION: Shortness of air with cough x6 months. Rib pain with coughing EXAMINATION: CT chest with contrast 11/23/2021 FINDINGS: There is atherosclerotic disease throughout the aorta which is otherwise unremarkable. Pulmonary arteries not well evaluated as this is not a dedicated CTA of the chest. No mediastinal or hilar adenopathy appreciated. Within the lungs, coarsened interstitial markings appear to represent chronic interstitial disease. There is multifocal pleural thickening along the posterior lateral aspect of the right hemithorax with a more focal hyperdensity noted anterior to the right likely 8th rib suspicious for a small hematoma. An active blush/bleed is not appreciated. There is an underlying displaced fracture of the 8th posterior lateral rib. A slightly displaced fracture of the right 7th rib is also noted. The visualized upper abdominal structures demonstrate no acute abnormality. There is a compression fracture at T11, which is stable from previous examination. IMPRESSION: 1. Displaced fractures of the right posterior 7th and 8th ribs with hyperdensity deep to the 8th rib likely hematoma. A mass would be in the differential but is felt to be less likely. Follow-up could reevaluate. Pleural thickening or fluid is noted on the right likely reactive. 2. Chronic interstitial changes throughout the lungs as above. Dictated on workstation # [id number]
[2021-11-23] MEDS ORDERED: DOXYCYCLINE 100 MG (VIBRAMYCIN) TABLET PO ONE (19:00)
[2021-11-23] MEDS ORDERED: HYDROcodone/APAP 5 MG/325 MG (LORTAB) TAB PO ONE (19:00)
[2021-11-23] MEDS ORDERED: ACHD5005 PO (19:09)
[2021-11-23] MEDS ORDERED: DOXY100T2 PO (19:09)
[2021-11-23 19:13] VITALS: BP 134/85
== END 2021-11-23 19:15 | disposition home or self-care (01) ==
LOC: EDUNIT# 14:33 → ER 14:35
DX: S22.41XA Multiple fractures of ribs, right side, initial encounter for closed fracture (principal); F17.210 Nicotine dependence, cigarettes, uncomplicated; X58.XXXA Exposure to other specified factors, initial encounter
CPT/HCPCS: 36415; 71045; 71260; 80053; 83605; 83880; 84145; 84484; 85007; 85027; 87040; 87636; 93005

== ENCOUNTER → 2021-12-29 | Outpatient (CLI) | payer MEDICARE ==
[~2021-12-29] MED LIST changes: +DOXY100T2 PO
--- NOTE | 2021-12-29 10:02 | Diagnostic Imaging Report ---
Indication: Left foot pain 3 views of the left foot show soft tissue swelling on the dorsum of foot. There is no fracture or dislocation. IMPRESSION: Soft tissue swelling left foot. No acute abnormality seen. Dictated by: Dictated on workstation # [id number]
== END ==
LOC: RAD 09:28
PROVIDERS: ATTEND Family Medicine
DX: M79.672 Pain in left foot (principal); M79.89 Other specified soft tissue disorders
CPT/HCPCS: 73630

== ENCOUNTER → 2022-03-02 | Outpatient (CLI) | payer MEDICARE ==
--- NOTE | 2022-03-02 15:01 | Diagnostic Imaging Report ---
PROCEDURE: CT left lower extremity without contrast. TECHNIQUE: Multiple contiguous axial images were obtained through the left lower extremity without the use of intravenous contrast. Sagittal and coronal reformations were then performed. Auto Exposure Controls were utilized during the CT exam to meet ALARA standards for radiation dose reduction. INDICATION: Ankle pain. COMPARISON: Left foot radiographs from 12/29/2021 FINDINGS: No acute or healing fracture within the distal lower leg or hindfoot. No osteochondral lesion of the talar dome. Ankle alignment is normal. Thickening of the distal Achilles with intrinsic mineralization is likely due to calcific tendinosis. Peroneal tendons are normally positioned. No ankle joint effusion. No tarsal coalition. IMPRESSION: 1. Calcific tendinosis of the distal Achilles without tear. 2. No fracture or osteochondral lesion. Dictated by: Dictated on workstation # [id number]
== END ==
LOC: RAD 09:15
PROVIDERS: ATTEND Podiatrist Foot & Ankle Surgery
DX: M67.874 Other specified disorders of tendon, left ankle and foot (principal)
CPT/HCPCS: 73700

== ENCOUNTER → 2022-04-12 | Outpatient (RCR) | payer MEDICARE | END | disposition home or self-care (01) | PROVIDERS: ATTEND Podiatrist Foot & Ankle Surgery | DX: S93.402D Sprain of unspecified ligament of left ankle, subsequent encounter (principal); M76.822 Posterior tibial tendinitis, left leg; J43.9 Emphysema, unspecified; I10 Essential (primary) hypertension; X58.XXXD Exposure to other specified factors, subsequent encounter | CPT/HCPCS: 97161; G0283 ==

== ENCOUNTER 2022-04-24 12:48 | Outpatient (RCR) | payer MEDICARE | END 2022-05-11 13:39 | disposition home or self-care (01) | PROVIDERS: ATTEND Podiatrist Foot & Ankle Surgery | DX: S93.402D Sprain of unspecified ligament of left ankle, subsequent encounter (principal); M76.822 Posterior tibial tendinitis, left leg; J43.9 Emphysema, unspecified; I10 Essential (primary) hypertension | CPT/HCPCS: 97110; G0283 ==

== ENCOUNTER 2022-09-27 14:41 | Observation (INO) | payer MEDICARE ==
[~2022-09-27] VITALS: Ht 175 cm; Wt 107.2 kg
--- NOTE | 2022-09-27 15:08 | ED Chest Pain ---
General Chief Complaint: Chest Pain Stated Complaint: CHEST PAINS | SOB Nursing Triage Note: PT STATES CP FOR 2 DAYS , SOB FOR ABOUT A WEEK, HX OF COPD, STILL SMOKES Source: patient, family () Exam Limitations: no limitations History of Present Illness Date Seen by Provider: Sep 27, 2022 Time Seen by Provider: 14:59 Initial Comments Patient is a 72-year-old female who presents to the emergency room chief complaint chest "heaviness" off and on for the last 2 to 3 days. She tells me she has a history of prior heart cath with Dr. García. She states he "cleaned out" and artery 2 or 3 years ago. She states that the "heaviness" that she has been experiencing is not exertional. It comes and goes randomly. She was in her primary care doctor's office today and sent to the ER with this history of chest pain and significant hypertension. Blood pressures in excess of 200/120. She denies recent fevers, chills, cough or congestion. She does states she has had a "cold". She has a history of hypercholesterolemia and COPD. She does not require oxygen at home. She does use inhalers daily. She does still smoke cigarettes. She does not take her aspirin daily as instructed. Currently not having chest pain. She states she did have some just prior to arrival while in the doctor's office. It was brief. Denies abdominal pain, nausea, vomiting. No diaphoresis. She does feel little short of breath when the discomfort occurs. The pain does not radiate but sits in the left chest. Timing/Duration: 2-3 days Severity/Quality: moderate, pressure ("heaviness") Location: other (left chest) Radiation: no radiation Activities at Onset: none Prior CP/Workup: cardiac cath ASA po CERTIFIED PERSONAL TRAINER: No NTG SL CERTIFIED PERSONAL TRAINER: No Associated Symptoms: shortness of breath Allergies and Home Medications Allergies Coded Allergies: erythromycin base (Verified Allergy, Intermediate, HIVES, 07/23/20) gluten (Verified Allergy, Mild, HEADACHES, 07/23/20) Penicillins (Unverified Allergy, Unknown, FROM CHILDHOOD, 07/23/20) Patient Home Medication List Home Medication List Reviewed: Yes Aspirin (Aspirin EC) 81 Mg Tablet., 81 MG PO DAILY, (Reported) Entered as Reported by: JOVAN RANGEL on 09/28/22 3737 Last Action: Reviewed Atorvastatin Calcium (Atorvastatin Calcium) 10 Mg Tablet, 10 MG PO HS Prescribed by: CAR GARCÍA on 09/30/22 1018 Budesonide/Glycopyr/Formoterol (Breztri Aerosphere Inhaler) 160 Mcg-9 Mcg-4.8 Mcg/Actuation Hfa.aer.ad, 2 PUFF INH BID, (Reported) Entered as Reported by: JOVAN RANGEL on 09/28/221526 Last Action: Reviewed Clopidogrel Bisulfate (Clopidogrel) 75 Mg Tablet, 75 MG PO DAILY Prescribed by: CAR GARCÍA on 09/30/22 1018 Losartan Potassium (Losartan Potassium) 100 Mg Tablet, 100 MG PO DAILY, (Reported) Entered as Reported by: JOVAN RANGEL on 09/28/221526 Last Action: Reviewed Metoprolol Succinate (Metoprolol Succinate) 100 Mg Tab.er.24h, 100 MG PO DAILY, (Reported) Entered as Reported by: JOVAN RANGEL on 09/28/221526 Last Action: Reviewed Discontinued Medications Alendronate Sodium (Alendronate Sodium) 70 Mg Tablet, 70 MG PO Denise, (Reported) Discontinued Reason: No Longer Taking Entered as Reported by: YAS NGUYEN on 12/28/15 0815 Last Action: Discontinued Benzonatate (Benzonatate) 100 Mg Capsule, 100 MG PO DAILY, (Reported) Discontinued Reason: No Longer Taking Entered as Reported by: YAS NGUYEN on 07/23/201328 Last Action: Discontinued Bupropion HCl (Bupropion HCl Sr) 150 Mg Tablet.er, 150 MG PO DAILY, (Reported) Discontinued Reason: No Longer Taking Entered as Reported by: YAS NGUYEN on 07/23/201328 Last Action: Discontinued Cetirizine HCl (Zyrtec) 10 Mg Tablet, 10 MG PO DAILY, (Reported) Discontinued Reason: No Longer Taking Entered as Reported by: YAS NGUYEN on 07/23/201328 Last Action: Discontinued Cholecalciferol (Vitamin D3) (Vitamin D3) 125 Mcg Capsule, 125 MCG PO DAILY, (Reported) Discontinued Reason: No Longer Taking Entered as Reported by: YAS NGUYEN on 07/23/201328 Last Action: Discontinued Cyclobenzaprine HCl (Cyclobenzaprine HCl) 5 Mg Tablet, 5 MG PO DAILY, (Reported) Discontinued Reason: No Longer Taking Entered as Reported by: YAS NGUYEN on 07/23/201328 Last Action: Discontinued Doxycycline Hyclate (Doxycycline Hyclate) 100 Mg Tablet, 100 MG PO BID Discontinued Reason: No Longer Taking Prescribed by: BRENDON DE LOS SANTOS on 11/23/211908 Last Action: Discontinued Hydrocodone/Acetaminophen ([place] 7.5-325 Tablet) 1 Each Tablet, 1-2 TAB PO Q4H Discontinued Reason: No Longer Taking Prescribed by: SAMIRA DURON on 07/29/20 0838 Last Action: Discontinued Hydrocodone/Acetaminophen (Hydrocodone-Acetamin 5-325 mg) 1 Each Tablet, 1 TAB PO Q4H PRN for PAIN-MODERATE (5-7) Discontinued Reason: No Longer Taking Prescribed by: CAMILLA DAHL on 10/09/21 1331 Last Action: Discontinued Hydrocodone/Acetaminophen (Hydrocodone-Acetamin 5-325 mg) 1 Each Tablet, 1 TAB PO Q6H PRN for PAIN-MODERATE (5-7) Discontinued Reason: No Longer Taking Prescribed by: BRENDON DE LOS SANTOS on 11/23/211908 Last Action: Discontinued Hydroxychloroquine Sulfate (Hydroxychloroquine Sulfate) 200 Mg Tablet, 200 MG PO DAILY, (Reported) Discontinued Reason: No Longer Taking Entered as Reported by: YAS NGUYEN on 07/23/201328 Last Action: Discontinued Levocetirizine Dihydrochloride (Levocetirizine Dihydrochloride) 5 Mg Tablet, 5 MG PO DAILY, (Reported) Discontinued Reason: No Longer Taking Entered as Reported by: YAS NGUYEN on 07/23/201328 Last Action: Discontinued Levothyroxine Sodium (Synthroid) 100 Mcg Tablet, 100 MCG PO DAILY, (Reported) Discontinued Reason: No Longer Taking Entered as Reported by: YAS NGUYEN on 05/23/18 1051 Last Action: Discontinued Losartan/Hydrochlorothiazide (Losartan-Hctz 50-12.5 mg Tab) 1 Each Tablet, 1 E ACH PO DAILY, (Reported) Discontinued Reason: No Longer Taking Entered as Reported by: YAS NGUYEN on 07/23/20 132 Last Action: Discontinued Montelukast Sodium (Montelukast Sodium) 10 Mg Tablet, 10 MG PO HS, (Reported) Discontinued Reason: No Longer Taking Entered as Reported by: YAS NGUYEN on 12/28/15 0815 Last Action: Discontinued Omeprazole (Omeprazole) 40 Mg Capsule.dr, 40 MG PO DAILY, (Reported) Discontinued Reason: No Longer Taking Entered as Reported by: YAS NGUYEN on 07/23/201328 Last Action: Discontinued Potassium Chloride (Potassium Chloride) 20 Meq Tablet.er, 20 MEQ PO DAILY, (Reported) Discontinued Reason: No Longer Taking Entered as Reported by: YAS NGUYEN on 07/23/201328 Last Action: Discontinued Tiotropium Br/Olodaterol HCl (Stiolto Respimat Inhal [place]) 4 Gm Mist.inhal, 4 GM IH BID, (Reported) Discontinued Reason: No Longer Taking Entered as Reported by: YAS NGUYEN on 07/23/201328 Last Action: Discontinued Umeclidinium Brm/Vilanterol Tr (Anoro Ellipta 62.5-25 Mcg INH) 1 Each Blst.w.dev, 1 EACH IH DAILY, (Reported) Discontinued Reason: No Longer Taking Entered as Reported by: YAS NGUYEN on 07/23/201328 Last Action: Discontinued Review of Systems Review of Systems Constitutional: see HPI EENTM: No Symptoms Reported Respiratory: Shortness of Air Cardiovascular: Chest Pain ("heaviness") Gastrointestinal: No Symptoms Reported Genitourinary: No Symptoms Reported Musculoskeletal: no symptoms reported Skin: no symptoms reported Psychiatric/Neurological: No Symptoms Reported All Other Systems Reviewed Negative Unless Noted: Yes Past Sumjunn-Shecoh-Aelpwv Hx Patient Social History Tobacco Use?: Yes Tobacco type used: Cigarettes Smoking Status: Current Everyday Smoker Substance use?: No Alcohol Use?: No Immunizations Up To Date Tetanus Booster (TDap): Unknown PED Vaccines UTD: No First/Initial COVID19 Vaccinat: 07/2021 Second COVID19 Vaccination Richard: 07/2021 Third COVID19 Vaccination Date: 07/2021 Seasonal Allergies Seasonal Allergies: Yes Past Medical History Surgery/Hospitalization HX: SHUNT IN HEAD, RT KNEE REPLACED,lap marcell, tubal, oopherectomy pmh: copd, htn, high chol Surgeries: Yes (RIGHT TKR, VENTRAL HERNIA x2, EXPLORATORY LAP, KNEE SCOPES) Coronary Stent, Hysterectomy Respiratory: Yes Asthma, COPD, Emphysema Currently Using CPAP: No Currently Using BIPAP: No Cardiac: Yes (stent) Coronary Artery Disease, Hypertension Neurological: Yes Headaches /Migraines, TIA Reproductive Disorders: No Female Reproductive Disorders: Ovarian Cyst Sexually Transmitted Disease: No HIV/AIDS: No Genitourinary: Yes Kidney Stones Gastrointestinal: Yes Gastroesophageal Reflux, Diverticulosis, Polyps Musculoskeletal: Yes (left knee medial tear) Arthritis, Fibromyalgia Endocrine: Yes Hypothyroidsim HEENT: No (GLASSES, DENTURES) Loss of Vision: Denies Hearing Impairment: Denies Cancer: No Psychosocial: Yes Anxiety Integumentary: No Blood Disorders: No Adverse Reaction/Blood Tranf: No (N/A) Family Medical History Arthritis G8 BROTHER Cardiovascular disease 19 FATHER Colon cancer 19 MOTHER Diabetes mellitus G8 BROTHER Hypertension 19 MOTHER G8 BROTHER Myocardial infarction 19 FATHER Respiratory disorder 19 FATHER (lung) Thyroid disease 19 MOTHER Physical Exam Vital Signs Vital Signs - First Documented 09/27/22 14:49 Temp 36.9 Pulse 93 Resp 20 B/P (MAP) 203/138 (159) Pulse Ox 99 O2 Delivery Room Air Capillary Refill : Less Than 3 Seconds Height, Weight, BMI Height: 5'9.00" Weight: 184lbs. 0.0oz. 83.020119jy; 34.00 BMI Method:Stated General Appearance: No Apparent Distress, WD/WN HEENT: PERRL/EOMI Neck: Full Range of Motion, Normal Inspection Respiratory: Lungs Clear, Normal Breath Sounds, No Accessory Muscle Use, No Respiratory Distress Cardiovascular: Regular Rate, Rhythm, Normal Peripheral Pulses Gastrointestinal: Non Tender, Soft Extremity: Normal Capillary Refill, Normal Inspection, Normal Range of Motion, Non Tender, No Calf Tenderness Neurologic/Psychiatric: Alert, Oriented x3, No Motor/Sensory Deficits, Normal Mood/Affect, draw fire operator II-XII Norm as Tested Skin: Normal Color, Warm/Dry Progress/Results/Core Measures Results/Orders Lab Results Laboratory Tests Test 09/27/22 14:55 Range/Units White Blood Count 12.0 H 4.3-11.0 10^3/uL Red Blood Count 5.27 H 3.80-5.11 10^6/uL Hemoglobin 16.5 H 11.5-16.0 g/dL Hematocrit 50 35-52 % Mean Corpuscular Volume 94 80-99 fL Mean Corpuscular Hemoglobin 31 25-34 pg Mean Corpuscular Hemoglobin Concent 33 32-36 g/dL Red Cell Distribution Width 13.5 10.0-14.5 % Platelet Count 319 130-400 10^3/uL Mean Platelet Volume 10.3 9.0-12.2 fL Immature Granulocyte % (Auto) 1 % Neutrophils (%) (Auto) 65 42-75 % Lymphocytes (%) (Auto) 21 12-44 % Monocytes (%) (Auto) 11 0-12 % Eosinophils (%) (Auto) 1 0-10 % Basophils (%) (Auto) 1 0-10 % Neutrophils # (Auto) 7.8 1.8-7.8 10^3/uL Lymphocytes # (Auto) 2.5 1.0-4.0 10^3/uL Monocytes # (Auto) 1.3 H 0.0-1.0 10^3/uL Eosinophils # (Auto) 0.2 0.0-0.3 10^3/uL Basophils # (Auto) 0.1 0.0-0.1 10^3/uL Immature Granulocyte # (Auto) 0.1 0.0-0.1 10^3/uL Prothrombin Time 12.7 12.2-14.7 SEC INR Comment 0.9 0.8-1.4 Activated Partial Thromboplast Time 29 24-35 SEC Sodium Level 143 135-145 MMOL/L Potassium Level 3.8 3.6-5.0 MMOL/L Chloride Level 110 H 98-107 MMOL/L Carbon Dioxide Level 21 21-32 MMOL/L Anion Gap 12 5-14 MMOL/L Blood Urea Nitrogen 10 7-18 MG/DL Creatinine 0.78 0.60-1.30 MG/DL Estimat Glomerular Filtration Rate 82 BUN/Creatinine Ratio 13 Glucose Level 104 70-105 MG/DL Calcium Level 9.0 8.5-10.1 MG/DL Corrected Calcium 8.9 8.5-10.1 MG/DL Magnesium Level 2.1 1.6-2.4 MG/DL Total Bilirubin 0.2 0.1-1.0 MG/DL Aspartate Amino Transf (AST/SGOT) 20 5-34 U/L Alanine Aminotransferase (ALT/SGPT) 31 0-55 U/L Alkaline Phosphatase 79 40-136 U/L Myoglobin 108.5 H 10.0-92.0 NG/ML Troponin I < 0.028 <0.028 NG/ML Total Protein 7.1 6.4-8.2 GM/DL Albumin 4.1 3.2-4.5 GM/DL My Orders Orders - AYAAN CRAFT MD Ekg Tracing (09/27/22 14:49) Cbc With Automated Diff (09/27/22 15:07) Magnesium (09/27/22 15:07) Chest 1 View, Ap/Pa Only (09/27/22 15:07) Comprehensive Metabolic Panel (09/27/22 15:07) Myoglobin Serum (09/27/22 15:07) Protime With Inr (09/27/22 15:07) Partial Thromboplastin Time (09/27/22 15:07) O2 (09/27/22 15:07) Monitor-Rhythm Ecg Trace Only (09/27/22 15:07) Ed Iv/Invasive Line Start (09/27/22 15:07) Troponin I Talya (09/27/22 15:07) Aspirin Chewable Tablet (Baby Aspirin Ch (09/27/22 15:30) Labetalol Injection (Normodyne Injection (09/27/22 15:30) Nicotine Patch (Nicoderm Patch) (09/27/22 16:30) Medications Given in ED Vital Signs/I&O 09/27/22 09/27/22 09/27/22 14:49 17:20 17:20 Temp 36.9 36.2 Pulse 93 73 Resp 20 20 B/P (MAP) 203/138 (159) 151/89 Pulse Ox 99 95 O2 Delivery Room Air Room Air Room Air Blood Pressure Mean: 159 Progress Progress Note : Progress Note Patient is a 72-year-old female with a history of coronary artery disease status post stent several years ago by Dr. García. Evaluation today includes physical exam, EKG, chest x-ray, CBC, chemistry, coagulation profile and cardiac troponin. Differential diagnosis based on history and physical exam NSTEMI, hypertensive urgency/emergency. EKG shows no evidence of ST segment elevation ME, chest x-ray is reassuring with no evidence of infiltrate, effusion or mediastinal abnormality. Labs also reviewed and within normal limits. Due to patient's risk factors with previous stent as well as ongoing smoking and significant hypertension, blood pressure greater than 210 on arrival I discussed admission with the patient for repeat troponin and evaluation by cardiology. Case was discussed with Dr. Kan as well as with the patient's primary care doctor, Dr. WHITE. Patient will be admitted observation. Initial ECG Impression Date: Sep 27, 2022 Initial ECG Impression Time: 14:51 Initial ECG Rate: 93 Initial ECG Rhythm: Normal Sinus Initial ECG Intervals: Normal Initial ECG Intervals MD 166 QRS 96 QTc 472 Comment No ectopy, normal sinus rhythm, no ST segment elevation or depression is noted. Normal intervals, slightly prolonged QTc Diagnostic Imaging Diagonstic Imaging: Xray Plain Films/CT/US/NM/MRI: chest Comments [facility], [place] NAME: FLAVIO ALVARADO [facility] REC#: [id number] PT STATUS: ADM Adriana : 1950 PHYSICIAN: AYAAN CRAFT MD ADMIT DATE: 09/27/22/[facility] Signed Date of Exam:09/27/22 CHEST 1 VIEW, AP/PA ONLY CLINICAL INDICATION: Patient with chest pain for two days and shortness of breath for about a week. Patient has history of COPD. EXAM: Portable chest x-ray upright view. COMPARISON: Chest x-ray dated 11/23/2021. FINDINGS: Again seen hyperinflated lungs with lucent areas involving both upper lung lara related to patient's history of COPD. There are curvilinear opacities in both lung bases which may be related to scarring. There is no interval lung infiltrate. Pulmonary vasculature and cardiac silhouette are within normal limits. There is no pleural effusion or pneumothorax. There are degenerative spurs involving the thoracic spine. The remainder of this exam shows no significant interval change compared to the prior study of comparison. IMPRESSION: 1: Stable chest x-ray exam with no interval radiographic evidence of acute cardiopulmonary process. 2: COPD lung changes. Dictated by: Dictated on workstation # [id number] Dict: 09/27/22 1530 Trans: 09/27/22 1732 [id number] Interpreted by: EVERETTE SNELL MD Electronically signed by: EVERETTE SNELL MD 09/27/22 1732 Departure Communication (Admissions) Time/Spoke to Admitting Phy: 16:[address] White (family doctor) accepts for admission Time/Spoke to Consulting Phy: 16:[address] García (cardiology) Impression Primary Impression: Chest pain Qualified Codes: R07.9 - Chest pain, unspecified Additional Impression: High blood pressure Qualified Codes: I10 - Essential (primary) hypertension Disposition: ADMITTED INPATIENT Condition: Stable Admissions Decision to Admit Reason: Admit from ER (General) Decision to Admit/Date: Sep 27, 2022 Time/Decision to Admit Time: 16:18 Departure-Patient Inst. Referrals: UDAY WHITE DO (PCP/Family) Primary Care Physician Scripts Atorvastatin Calcium (Atorvastatin Calcium) 10 Mg Tablet 10 MG PO HS, #30 TAB 4 Refills Prov: CAR GARCÍA MD 09/30/22 Clopidogrel Bisulfate (Clopidogrel) 75 Mg Tablet 75 MG PO DAILY, #30 TAB 6 Refills Prov: CAR GARCÍA MD 09/30/22 AYAAN CRAFT MD Sep 27, 2022 15:08
[2022-09-27 15:14] LABS: BASOPHILS # (AUTO) 0.1 10^3/uL (0.0-0.1); BASOPHILS % (AUTO) 1 % (0-10); EOSINOPHILS # (AUTO) 0.2 10^3/uL (0.0-0.3); EOSINOPHILS % (AUTO) 1 % (0-10); HEMATOCRIT 50 % (35-52); HEMOGLOBIN 16.5 g/dL (11.5-16.0); LYMPHOCYTES # (AUTO) 2.5 10^3/uL (1.0-4.0); LYMPHOCYTES % (AUTO) 21 % (12-44); MEAN CORPUSCULAR HEMOGLOBIN 31 pg (25-34); MEAN CORPUSCULAR HGB CONC 33 g/dL (32-36); MEAN CORPUSCULAR VOLUME 94 fL (80-99); MEAN PLATELET VOLUME 10.3 fL (9.0-12.2); MONOCYTES # (AUTO) 1.3 10^3/uL (0.0-1.0); MONOCYTES % (AUTO) 11 % (0-12); NEUTROPHILS # (AUTO) 7.8 10^3/uL (1.8-7.8); NEUTROPHILS % (AUTO) 65 % (42-75); PLATELET COUNT 319 10^3/uL (130-400)
[2022-09-27 15:17] LABS: INR 0.9 (0.8-1.4); PROTHROMBIN TIME PATIENT 12.7 SEC (12.2-14.7)
[2022-09-27 15:18] LABS: ALBUMIN 4.1 GM/DL (3.2-4.5)
[2022-09-27 15:19] LABS: POTASSIUM 3.8 MMOL/L (3.6-5.0)
[2022-09-27 15:21] LABS: TOTAL PROTEIN 7.1 GM/DL (6.4-8.2)
[2022-09-27 15:23] LABS: BILIRUBIN,TOTAL 0.2 MG/DL (0.1-1.0)
[2022-09-27 15:24] LABS: CREATININE SERUM 0.78 MG/DL (0.60-1.30)
[2022-09-27 15:27] LABS: MAGNESIUM 2.1 MG/DL (1.6-2.4)
[2022-09-27] MEDS ORDERED: LABETALOL HCL 20 MG/4 ML VIAL IV ONE (15:30)
[2022-09-27] MEDS ORDERED: ASPIRIN 81 MG CHEW (CHILDREN'S ASA) PO ONE (15:30)
--- NOTE | 2022-09-27 15:47 | Diagnostic Imaging Report ---
CLINICAL INDICATION: Patient with chest pain for two days and shortness of breath for about a week. Patient has history of COPD. EXAM: Portable chest x-ray upright view. COMPARISON: Chest x-ray dated 11/23/2021. FINDINGS: Again seen hyperinflated lungs with lucent areas involving both upper lung lara related to patient's history of COPD. There are curvilinear opacities in both lung bases which may be related to scarring. There is no interval lung infiltrate. Pulmonary vasculature and cardiac silhouette are within normal limits. There is no pleural effusion or pneumothorax. There are degenerative spurs involving the thoracic spine. The remainder of this exam shows no significant interval change compared to the prior study of comparison. IMPRESSION: 1: Stable chest x-ray exam with no interval radiographic evidence of acute cardiopulmonary process. 2: COPD lung changes. Dictated by: Dictated on workstation # [id number]
--- NOTE | 2022-09-27 16:29 | Consultation-Cardiology ---
HPI-Cardiology Cardiology Consultation Date of Consultation 09/27/22 Date of Admission Time Seen by Provider: 16:25 Indication: Chest pain HPI 72-year-old lady with history of coronary artery disease, hypertension and hyperlipidemia. Has been having increasing chest pain for the past 3 days increasing shortness of breath. Reporting pedal edema. Came into the emergency room due to worsening symptoms. She was severely hypertensive on arrival to the emergency room. On my evaluation she was sitting up in bed, feeling better, reported improvement in the chest pain. Home Medications & Allergies Allergies: Coded Allergies: erythromycin base (Verified Allergy, Intermediate, HIVES, 07/23/20) gluten (Verified Allergy, Mild, HEADACHES, 07/23/20) Penicillins (Unverified Allergy, Unknown, FROM CHILDHOOD, 07/23/20) Home Medication List Reviewed: Yes LFG-Wknrrg-Figspj Hx Patient Social History Marital Status: Employed/Student: retired Smoking Status: Current Everyday Smoker Type Used: Cigarettes 2nd Hand Smoke Exposure: No Recent Hopitalizations: No Have you traveled recently?: No Alcohol Use?: No Immunizations Up To Date Tetanus Booster (TDap): Unknown Date of Pneumonia Vaccine: May 19, 2019 Date of Influenza Vaccine: May 17, 2020 Past Medical History Discussed below Family Medical History Family History: Arthritis G8 BROTHER Cardiovascular disease 19 FATHER Colon cancer 19 MOTHER Diabetes mellitus G8 BROTHER Hypertension 19 MOTHER G8 BROTHER Myocardial infarction 19 FATHER Respiratory disorder 19 FATHER (lung) Thyroid disease 19 MOTHER Review of Systems-General Review of Systems Constitutional: no symptoms reported, see HPI EENTM: see HPI, no symptoms reported Respiratory: see HPI; No cough; dyspnea on exertion; No hemoptysis, No ort hopnea, No phlegm; short of breath; No stridor, No wheezing, No other Cardiovascular: see HPI, chest pain, edema; No Hx of Intervention, No palpitations, No syncope, No vascular heart diseas, No other Gastrointestinal: no symptoms reported, see HPI Genitourinary: no symptoms reported, see HPI Musculoskeletal: no symptoms reported, see HPI Skin: no symptoms reported, see HPI Psychiatric/Neurological: No Symptoms Reported, See HPI Reviewed Test Results Reviewed Test Results Lab Laboratory Tests Test 09/27/22 14:55 Range/Units White Blood Count 12.0 H 4.3-11.0 10^3/uL Red Blood Count 5.27 H 3.80-5.11 10^6/uL Hemoglobin 16.5 H 11.5-16.0 g/dL Hematocrit 50 35-52 % Mean Corpuscular Volume 94 80-99 fL Mean Corpuscular Hemoglobin 31 25-34 pg Mean Corpuscular Hemoglobin Concent 33 32-36 g/dL Red Cell Distribution Width 13.5 10.0-14.5 % Platelet Count 319 130-400 10^3/uL Mean Platelet Volume 10.3 9.0-12.2 fL Immature Granulocyte % (Auto) 1 % Neutrophils (%) (Auto) 65 42-75 % Lymphocytes (%) (Auto) 21 12-44 % Monocytes (%) (Auto) 11 0-12 % Eosinophils (%) (Auto) 1 0-10 % Basophils (%) (Auto) 1 0-10 % Neutrophils # (Auto) 7.8 1.8-7.8 10^3/uL Lymphocytes # (Auto) 2.5 1.0-4.0 10^3/uL Monocytes # (Auto) 1.3 H 0.0-1.0 10^3/uL Eosinophils # (Auto) 0.2 0.0-0.3 10^3/uL Basophils # (Auto) 0.1 0.0-0.1 10^3/uL Immature Granulocyte # (Auto) 0.1 0.0-0.1 10^3/uL Prothrombin Time 12.7 12.2-14.7 SEC INR Comment 0.9 0.8-1.4 Activated Partial Thromboplast Time 29 24-35 SEC Sodium Level 143 135-145 MMOL/L Potassium Level 3.8 3.6-5.0 MMOL/L Chloride Level 110 H 98-107 MMOL/L Carbon Dioxide Level 21 21-32 MMOL/L Anion Gap 12 5-14 MMOL/L Blood Urea Nitrogen 10 7-18 MG/DL Creatinine 0.78 0.60-1.30 MG/DL Estimat Glomerular Filtration Rate 82 BUN/Creatinine Ratio 13 Glucose Level 104 70-105 MG/DL Calcium Level 9.0 8.5-10.1 MG/DL Corrected Calcium 8.9 8.5-10.1 MG/DL Magnesium Level 2.1 1.6-2.4 MG/DL Total Bilirubin 0.2 0.1-1.0 MG/DL Aspartate Amino Transf (AST/SGOT) 20 5-34 U/L Alanine Aminotransferase (ALT/SGPT) 31 0-55 U/L Alkaline Phosphatase 79 40-136 U/L Myoglobin 108.5 H 10.0-92.0 NG/ML Troponin I < 0.028 <0.028 NG/ML Total Protein 7.1 6.4-8.2 GM/DL Albumin 4.1 3.2-4.5 GM/DL Physical Exam Physical Exam Vital Signs Vital Signs - First Documented 09/27/22 14:49 Temp 36.9 Pulse 93 Resp 20 B/P (MAP) 203/138 (159) Pulse Ox 99 O2 Delivery Room Air Capillary Refill : Less Than 3 Seconds Height, Weight, BMI Height: 5'9.00" Weight: 184lbs. 0.0oz. 83.288823zk; 34.00 BMI Method:Stated General Appearance: No Apparent Distress, WD/WN Eyes: Bilateral Eye Normal Inspection, Bilateral Eye PERRL, Bilateral Eye EOMI HEENT: PERRL/EOMI, TMs Normal, Normal ENT Inspection, Pharynx Normal, Moist Mucous Membranes Neck: Full Range of Motion, Normal Inspection, Non Tender, Supple, Carotid Bruit Respiratory: Chest Non Tender, Normal Breath Sounds, No Accessory Muscle Use, No Respiratory Distress Cardiovascular: Regular Rate, Rhythm, No Edema, No Gallop, No JVD, No Murmur, Normal Peripheral Pulses Gastrointestinal: Normal Bowel Sounds, No Organomegaly, No Pulsatile Mass, Non Tender, Soft Back: Normal Inspection, No CVA Tenderness, No Vertebral Tenderness Extremity: Normal Capillary Refill, Normal Inspection, Normal Range of Motion, Non Tender, No Calf Tenderness, No Pedal Edema Neurologic/Psychiatric: Alert, Oriented x3, No Motor/Sensory Deficits, Normal Mood/Affect Skin: Normal Color, Warm/Dry Lymphatic: No Adenopathy A/P-Cardiology Admission Diagnosis Chest pain Dyspnea Coronary artery disease Hypertensive urgency Assessment/Plan Chest pain resembling angina, increasing dyspnea on exertion and pedal edema. Patient is admitted to telemetry, starting aspirin and Lovenox I will evaluate echo and stress test. Coronary artery disease Cardiac catheterization done on September 11, 2018 had a Mary Ann stent 3.5 x 18 mm to the mid right coronary artery expanded to 3.65 mm, has mild disease in the LAD nonobstructive disease. Hypertension, hypertensive urgency with active chest pain Blood pressure is slightly better We will start losartan 100 mg daily and hydrochlorothiazide 25 mg daily Evaluate 2D echo Hyperlipidemia, not taking any statin I will evaluate lipid profile Hypothyroidism, managed by primary care physician Chandni, still an active smoker, educated on smoking cessation History of syncope, vasovagal in 2019. No further episodes were reported Mild bilateral carotid stenosis, last ultrasound was done in August 2020. Continue to monitor History of leg cramps and leg pain. NAT in 2019 was 1.18 on the right and 1.13 on the left, TBI was 0.5 on the right and 0.83 on the left. The right side has slight drop in the waveform below the knee. We will continue monitoring Arthritis, patient was maintained on Plaquenil. Strong family history of heart disease with multiple brothers and family members with coronary artery disease and CABG History of hydrocephalus and shunt done in March 2019 Clinical Quality Measures AMI/AHF: ASA po Prior to arrival: CAR Barba MD Sep 27, 2022 16:29
[2022-09-27] MEDS ORDERED: NICOTINE 21 MG (NICODERM) PATCH TD ONE (16:30)
[2022-09-27] MEDS ORDERED: CATHETER FLUSH 10 ML SYR IVP PRN (17:30)
[2022-09-27] MEDS: LOSARTAN 100 MG (COZAAR) TABLET PO SCH (17:39)
[2022-09-27] MEDS ORDERED: RT-IPRATROPIUM (ATROVENT) 0.5MG/2.5ML AMP IH PRN (18:15)
[2022-09-27] MEDS ORDERED: RT-ALBUTEROL SULF 2.5 MG/3 ML PRE-MIX VIAL INH PRN (18:15)
[2022-09-27] MEDS ORDERED: PROMETHAZINE/ CODEINE SYRUP 5 ML UDC PO PRN (18:15)
[2022-09-27] MEDS ORDERED: PATIENT MAY USE OWN MEDS, ALL MC SCH (18:30)
[2022-09-27 19:30] VITALS: BP 177/102
[2022-09-27] MEDS ORDERED: ACETAMINOPHEN 325 MG TABLET ONE (20:29)
[2022-09-27] MEDS: ACETAMINOPHEN 325 MG TABLET PO PRN (20:32)
[2022-09-27] MEDS: CATHETER FLUSH 10 ML SYR IVP SCH (20:33)
[2022-09-27] MEDS ORDERED: meTOprolol SUCCINATE 100 MG (TOPROL XL) TAB PO SCH (21:00)
[2022-09-27] MEDS ORDERED: BREZTRI INH SCH (21:00)
[2022-09-27] MEDS: RT-ALBUTEROL SULF 2.5 MG/3 ML PRE-MIX VIAL INH SCH (21:18)
[2022-09-27] MEDS: RT--FLUTICASONE/SALMETEROL 232-14 (AIRDUO RespiCLICK) IH SCH (21:18)
[2022-09-27] MEDS: RT-IPRATROPIUM (ATROVENT) 0.5MG/2.5ML AMP IH SCH (21:18)
[2022-09-28] VITALS (8 sets, daily range): BP systolic 118–171; BP diastolic 80–101
[2022-09-28] MEDS: RT-ALBUTEROL SULF 2.5 MG/3 ML PRE-MIX VIAL INH SCH ×4 (03:51→21:35)
[2022-09-28] MEDS: RT-IPRATROPIUM (ATROVENT) 0.5MG/2.5ML AMP IH SCH ×4 (03:51→21:35)
[2022-09-28 05:00] LABS: HEMATOCRIT 46 % (35-52); HEMOGLOBIN 15.1 g/dL (11.5-16.0); MEAN CORPUSCULAR HEMOGLOBIN 31 pg (25-34); MEAN CORPUSCULAR HGB CONC 33 g/dL (32-36); MEAN CORPUSCULAR VOLUME 95 fL (80-99); MEAN PLATELET VOLUME 10.5 fL (9.0-12.2); PLATELET COUNT 299 10^3/uL (130-400); WHITE BLOOD COUNT 9.5 10^3/uL (4.3-11.0)
[2022-09-28 05:12] LABS: CHLORIDE 109 MMOL/L (98-107); POTASSIUM 4.1 MMOL/L (3.6-5.0); SODIUM 143 MMOL/L (135-145)
[2022-09-28 05:13] LABS: CALCIUM 8.8 MG/DL (8.5-10.1)
[2022-09-28 05:14] LABS: GLUCOSE 97 MG/DL (70-105); TRIGLYCERIDES 92 MG/DL (<150); VLDL CHOLESTEROL 18 MG/DL (5-40)
[2022-09-28 05:16] LABS: CARBON DIOXIDE 22 MMOL/L (21-32)
[2022-09-28 05:18] LABS: CREATININE SERUM 0.79 MG/DL (0.60-1.30); GFR ESTIMATED 80
[2022-09-28 05:19] LABS: BUN/CREATININE RATIO 11; CHOLESTEROL 155 MG/DL (< 200)
[2022-09-28 05:20] LABS: HDL CHOLESTEROL 36 MG/DL (40-60)
[2022-09-28] MEDS: CATHETER FLUSH 10 ML SYR IVP SCH ×3 (06:05→22:10)
[2022-09-28] MEDS: RT--FLUTICASONE/SALMETEROL 232-14 (AIRDUO RespiCLICK) IH SCH (07:32)
[2022-09-28] MEDS: UMECLIDINIUM BROMIDE (INCRUSE ELLIPTA) 7'S IH SCH (07:32)
--- NOTE | 2022-09-28 08:16 | Cardiology Progress Note ---
Subjective Date Seen by Provider: Sep 28, 2022 Time Seen by Provider: 08:14 Subjective/Events-last exam Patient is laying down in bed, feeling well. Asking to go home Review of Systems General: No Chills, No Night Sweats, No Fatigue, No Malaise, No Appetite, No Other HEENT: No Head Aches, No Visual Changes, No Eye Pain, No Ear Pain, No Dysphasia, No Sinus Congestion, No Post Nasal Drip, No Sore Throat, No Other Pulmonary: No Dyspnea, No Cough, No Pleuritic Chest Pain, No Other Cardiovascular: No: Chest Pain, Palpitations, Orthopnea, Paroxysmal Noc. Dyspnea, Edema, Lt Headedness, Other Objective-Cardiology Exam Last Set of Vital Signs Vital Signs 09/27/22 09/28/22 17:52 07:40 Temp 36.4 Pulse 67 Resp 24 B/P (MAP) 118/94 (102) Pulse Ox 92 O2 Delivery Room Air FiO2 21 I&O Intake and Output 09/28/22 00:00 Intake Total 560 ml Balance 560 ml Intake Oral 560 ml # Voids 3 Daily Weight Change No General: Alert, Oriented X3, Cooperative HEENT: Atraumatic, PERRLA Neck: Supple, No JVD, No Thyromegaly Lungs: Clear to Auscultation, Normal Air Movement Heart: Regular Rate, Normal S1, Normal S2, No Murmurs Abdomen: Normal Bowel Sounds, Soft, No Tenderness, No Hepatosplenomegaly, No Masses Extremities: No Clubbing, No Cyanosis, No Edema, Normal Pulses, No Tenderness/Swelling Skin: No Rashes, No Breakdown, No Significant Lesion Neuro: Normal Gait, Normal Speech, Strength at 5/5 X4 Ext, Normal Tone, Sensation Intact Psych/Mental Status: Mental Status NL, Mood NL Results Lab Laboratory Tests 09/27/22 14:55 09/28/22 04:27 A/P-Cardiology Admission Diagnosis Chest pain Dyspnea Coronary artery disease Hypertensive urgency Assessment/Plan Chest pain resembling angina, increasing dyspnea on exertion and pedal edema. Patient is admitted to telemetry, starting aspirin and Lovenox Planning for stress test and echo today Coronary artery disease Cardiac catheterization done on September 11, 2018 had a Mary Ann stent 3.5 x 18 mm to the mid right coronary artery expanded to 3.65 mm, has mild disease in the LAD nonobstructive disease. Hypertension, hypertensive urgency with active chest pain Blood pressure is better controlled Currently on losartan 100 mg daily and hydrochlorothiazide 25 mg daily Hyperlipidemia, not taking any statin Total cholesterol 155, LDL 113 Started on Lipitor 10 mg daily Hypothyroidism, managed by primary care physician Chandni, still an active smoker, educated on smoking cessation History of syncope, vasovagal in 2018. No further episodes were reported Mild bilateral carotid stenosis, last ultrasound was done in August 2020. Continue to monitor History of leg cramps and leg pain. NAT in 2019 was 1.18 on the right and 1.13 on the left, TBI was 0.5 on the right and 0.83 on the left. The right side has slight drop in the waveform below the knee. We will continue monitoring Arthritis, patient was maintained on Plaquenil. Strong family history of heart disease with multiple brothers and family members with coronary artery disease and CABG History of hydrocephalus and shunt done in March 2019 CAR GASTON MD Sep 28, 2022 08:15
[2022-09-28] MEDS: LOSARTAN 100 MG (COZAAR) TABLET PO SCH (08:43)
[2022-09-28] MEDS: ASPIRIN E.C. 81 MG (ECOTRIN) TAB PO SCH (08:43)
[2022-09-28] MEDS: PANTOPRAZOLE 40 MG (PROTONIX) TAB PO SCH (08:44)
[2022-09-28] MEDS ORDERED: REGADENOSON 0.4 MG/5 ML SYR (LEXISCAN) IV ONE ×2 (11:09→11:49)
[2022-09-28] MEDS ORDERED: ASPI-1238 PO (15:27)
[2022-09-28] MEDS ORDERED: LOSA100T57 PO (15:27)
[2022-09-28] MEDS ORDERED: MTP100TCR PO (15:27)
[2022-09-28] MEDS ORDERED: BUDE10.7 INH (15:27)
--- NOTE | 2022-09-28 17:54 | History & Physical ---
History of Present Illness History of Present Illness Reason for visit/HPI This is a 72 year old female who presented to my office with shortness of breath and chest pain radiating to her upper back. She was sent to the emergency room to rule out cardiac etiology vs PE. She was in hypertensive urgency in the ER with a blood pressure of 203/138. She was given IV labetalol and her BP improved. She was admitted to cardiac stepdown due to her cardiac history and t o rule out cardiac etiology. She is feeling well this morning with no further chest pain and her shortness of breath is improved. Date of Admission Sep 27, 2022 at 17:21 Date Seen by a Provider: Sep 28, 2022 Time Seen by a Provider: 08:20 I consulted on this patient on 09/28/22 17:32 Attending Physician Uday White DO Admitting Physician Admitting Physician: Uday White DO Attending Physician: Uday White DO Consult Allergies and Home Medications Allergies Coded Allergies: erythromycin base (Verified Allergy, Intermediate, HIVES, 07/23/20) gluten (Verified Allergy, Mild, HEADACHES, 07/23/20) Penicillins (Unverified Allergy, Unknown, FROM CHILDHOOD, 07/23/20) Patient Home Medication List Home Medication List Reviewed: Yes Aspirin (Aspirin EC) 81 Mg Tablet.dr, 81 MG PO DAILY, (Reported) Entered as Reported by: JOVAN RANGEL on 09/28/221526 Last Action: Reviewed Budesonide/Glycopyr/Formoterol (Breztri Aerosphere Inhaler) 160 Mcg-9 Mcg-4.8 Mcg/Actuation Hfa.aer.ad, 2 PUFF INH BID, (Reported) Entered as Reported by: JOVAN RANGEL on 09/28/221526 Last Action: Reviewed Losartan Potassium (Losartan Potassium) 100 Mg Tablet, 100 MG PO DAILY, (Reported) Entered as Reported by: JOVAN RANGEL on 09/28/221526 Last Action: Reviewed Metoprolol Succinate (Metoprolol Succinate) 100 Mg Tab.er.24h, 100 MG PO DAILY, (Reported) Entered as Reported by: JOVAN RANGEL on 09/28/221526 Last Action: Reviewed Discontinued Medications Alendronate Sodium (Alendronate Sodium) 70 Mg Tablet, 70 MG PO Denise, (Reported) Discontinued Reason: No Longer Taking Entered as Reported by: YAS NGUYEN on 12/28/15 0815 Last Action: Discontinued Benzonatate (Benzonatate) 100 Mg Capsule, 100 MG PO DAILY, (Reported) Discontinued Reason: No Longer Taking Entered as Reported by: YAS NGUYEN on 07/23/20 1329 Last Action: Discontinued Bupropion HCl (Bupropion HCl Sr) 150 Mg Tablet.er, 150 MG PO DAILY, (Reported) Discontinued Reason: No Longer Taking Entered as Reported by: YAS NGUYEN on 07/23/20 132 Last Action: Discontinued Cetirizine HCl (Zyrtec) 10 Mg Tablet, 10 MG PO DAILY, (Reported) Discontinued Reason: No Longer Taking Entered as Reported by: YAS NGUYEN on 07/23/201328 Last Action: Discontinued Cholecalciferol (Vitamin D3) (Vitamin D3) 125 Mcg Capsule, 125 MCG PO DAILY, (Reported) Discontinued Reason: No Longer Taking Entered as Reported by: YAS NGUYEN on 07/23/20 132 Last Action: Discontinued Cyclobenzaprine HCl (Cyclobenzaprine HCl) 5 Mg Tablet, 5 MG PO DAILY, (Reported) Discontinued Reason: No Longer Taking Entered as Reported by: YAS NGUYEN on 07/23/201328 Last Action: Discontinued Doxycycline Hyclate (Doxycycline Hyclate) 100 Mg Tablet, 100 MG PO BID Discontinued Reason: No Longer Taking Prescribed by: BRENDON DE LOS SANTOS on 11/23/21 1909 Last Action: Discontinued Hydrocodone/Acetaminophen ([place] 7.5-325 Tablet) 1 Each Tablet, 1-2 TAB PO Q4H Discontinued Reason: No Longer Taking Prescribed by: SAMIRA DURON on 07/29/20 0838 Last Action: Discontinued Hydrocodone/Acetaminophen (Hydrocodone-Acetamin 5-325 mg) 1 Each Tablet, 1 TAB PO Q4H PRN for PAIN-MODERATE (5-7) Discontinued Reason: No Longer Taking Prescribed by: CAMILLA DAHL on 10/09/21 1331 Last Action: Discontinued Hydrocodone/Acetaminophen (Hydrocodone-Acetamin 5-325 mg) 1 Each Tablet, 1 TAB PO Q6H PRN for PAIN-MODERATE (5-7) Discontinued Reason: No Longer Taking Prescribed by: BRENDON DE LOS SANTOS on 11/23/21 1909 Last Action: Discontinued Hydroxychloroquine Sulfate (Hydroxychloroquine Sulfate) 200 Mg Tablet, 200 MG PO DAILY, (Reported) Discontinued Reason: No Longer Taking Entered as Reported by: YAS NGUYEN on 07/23/201328 Last Action: Discontinued Levocetirizine Dihydrochloride (Levocetirizine Dihydrochloride) 5 Mg Tablet, 5 MG PO DAILY, (Reported) Discontinued Reason: No Longer Taking Entered as Reported by: YAS NGUYEN on 07/23/201328 Last Action: Discontinued Levothyroxine Sodium (Synthroid) 100 Mcg Tablet, 100 MCG PO DAILY, (Reported) Discontinued Reason: No Longer Taking Entered as Reported by: YAS NGUYEN on 05/23/18 1051 Last Action: Discontinued Losartan/Hydrochlorothiazide (Losartan-Hctz 50-12.5 mg Tab) 1 Each Tablet, 1 EACH PO DAILY, (Reported) Discontinued Reason: No Longer Taking Entered as Reported by: YAS NGUYEN on 07/23/201328 Last Action: Discontinued Montelukast Sodium (Montelukast Sodium) 10 Mg Tablet, 10 MG PO HS, (Reported) Discontinued Reason: No Longer Taking Entered as Reported by: YAS NGUYEN on 12/28/15 0815 Last Action: Discontinued Omeprazole (Omeprazole) 40 Mg Capsule.dr, 40 MG PO DAILY, (Reported) Discontinued Reason: No Longer Taking Entered as Reported by: YAS NGUYEN on 07/23/201328 Last Action: Discontinued Potassium Chloride (Potassium Chloride) 20 Meq Tablet.er, 20 MEQ PO DAILY, (Reported) Discontinued Reason: No Longer Taking Entered as Reported by: YAS NGUYEN on 07/23/201328 Last Action: Discontinued Tiotropium Br/Olodaterol HCl (Stiolto Respimat Inhal [place]) 4 Gm Mist.inhal, 4 GM IH BID, (Reported) Discontinued Reason: No Longer Taking Entered as Reported by: YAS NGUYEN on 07/23/201328 Last Action: Discontinued Umeclidinium Brm/Vilanterol Tr (Anoro Ellipta 62.5-25 Mcg INH) 1 Each Blst.w.dev, 1 EACH IH DAILY, (Reported) Discontinued Reason: No Longer Taking Entered as Reported by: YAS NGUYEN on 07/23/20 1329 Last Action: Discontinued Past Cggzfea-Xgdxig-Uncnka Hx Patient Social History Marrital Status: Employed/Student: retired Tobacco Use?: Yes Tobacco type used: Cigarettes Smoking Status: Current Everyday Smoker Use of E-Cig and/or Vaping dev: No Substance use?: No Alcohol Use?: Yes Alcohol type: Beer Alcohol Frequency: Once in a while Pt feels they are or have been: No Immunizations Up To Date Date of Influenza Vaccine: May 25, 2022 First/Initial COVID19 Vaccinat: 07/2021 Second COVID19 Vaccination Richard: 07/2021 Tetanus Booster (TDap): Unknown PED Vaccines UTD: No Date of Pneumonia Vaccine: May 19, 2019 Seasonal Allergies Seasonal Allergies: Yes Current Status Advance Directives: No Primary Language: Burkinan Preferred Spoken Language: Burkinan Is interpretation needed?: No Sensory deficits: Vision impairment Past Medical History Surgeries: Coronary Stent, Hysterectomy Asthma, COPD, Emphysema Currently Using CPAP: No Currently Using BIPAP: No Coronary Artery Disease, Hypertension Headaches /Migraines, TIA Sexually Transmitted Disease: No HIV/AIDS: No Kidney Stones Gastroesophageal Reflux, Diverticulosis, Polyps Arthritis, Fibromyalgia Hypothyroidsim Loss of Vision: Denies Hearing Impairment: Denies Anxiety Blood Disorders: No Adverse Reaction/Blood Tranf: No (N/A) Family Medical History Arthritis G8 BROTHER Cardiovascular disease 19 FATHER Colon cancer 19 MOTHER Diabetes mellitus G8 BROTHER Hypertension 19 MOTHER G8 BROTHER Myocardial infarction 19 FATHER Respiratory disorder 19 FATHER (lung) Thyroid disease 19 MOTHER Review of Systems Constitutional: weakness Respiratory: cough, dyspnea on exertion, short of breath Cardiovascular: chest pain Gastrointestinal: No RUQ, No LUQ, No RLQ, No LLQ, No no symptoms reported, No see HPI, No abdominal pain, No constipation, No diarrhea, No dysphagia, No hematemesis, No heartburn, No jaundice, No loss of appetite, No melena, No nausea, No vomiting, No other Genitourinary: No no symptoms reported, No see HPI, No decreased output, No discharge, No dysuria, No frequency, No hematuria, No hesitancy, No incontinence, No nocturia, No pain, No other Musculoskeletal: back pain Psychiatric/Neurological: Weakness Physical Exam Vital Signs Vital Signs - First Documented 09/27/22 09/27/22 14:49 17:52 Temp 36.9 Pulse 93 Resp 20 B/P (MAP) 203/138 (159) Pulse Ox 99 O2 Delivery Room Air FiO2 21 Capillary Refill : Less Than 3 Seconds Height, Weight, BMI Height: 5'9.00" Weight: 184lbs. 0.0oz. 83.726720lc; 34.77 BMI Method:Stated General Appearance: No Apparent Distress Neck: Supple Respiratory: Lungs Clear, Decreased Breath Sounds Cardiovascular: Regular Rate, Rhythm, Systolic Murmur Gastrointestinal: Normal Bowel Sounds, Non Tender, Soft Rectal: Deferred Back: No CVA Tenderness Extremity: Non Tender, No Calf Tenderness, No Pedal Edema Neurologic/Psychiatric: Alert, Oriented x3 Skin: Warm/Dry Assessment/Plan Assessment and Plan 1. Chest Pain--concerning for angina--admitted to cardiac stepdown for repeat cardiac enzymes, cardiology consult, ECHO and stress test 2. COPD/Dyspnea--resume Breztri and SVNS with duoneb, smoking cessation recom mended 3. Hypertensive Urgency--given IV labetalol in ER, resume metoprolol and losartan 4. GERD--start protonix Admission Diagnosis Admission Status: Observation Clinical Quality Measures AMI/AHF: ASA po Prior to arrival: UDAY Hickey DO Sep 28, 2022 17:54
[2022-09-28] MEDS ORDERED: ALPRAZolam 0.25 MG (XANAX) TAB PO NR (18:30)
--- NOTE | 2022-09-28 18:48 | Cardiology Stress Test Report ---
Stress Test Report Date of Procedure/Referring: Date of Procedure: Sep 28, 2022 PCP Eva White DO Admitting Physician Admitting Physician: Eva White DO Attending Physician: Eva White DO Indications: CP Baseline Heart Rate: 65 Baseline Blood Pressure: Blood Pressure Systolic: 171 Blood Pressure Diastolic: 99 Baseline Vitals Vital Signs Date Time Temp Pulse Resp B/P (MAP) Pulse Ox O2 Delivery O2 Flow Rate FiO2 09/27/22 14:49 36.9 93 20 203/138 (159) 99 Room Air 09/27/22 17:52 21 Baseline EKG: Baseline EKG: NSR Summary After explaining the procedure to the patient, she signed a consent and then brought to the stress nuclear laboratory. Patient received 0.4 mg Lexiscan for stress test, ECG, heart rate and blood pressure were monitored continuously. Resting and stress dose of radio tracer were injected, imaging was acquired and reviewed in short axis, horizontal long axis and vertical long axis views. TID: 1.07 SSS: 8 SDS: 8 EF: 58 Patient tolerated Lexiscan well Breast attenuation with reversible ischemia involving the mid to apical anterior wall and anterolateral wall Normal left ventricular size, EF 58% CAR GASTON MD Sep 28, 2022 18:48
[2022-09-28] MEDS: AtorvaSTATin TABLET 10 MG TABLET PO SCH (22:10)
[2022-09-29] VITALS (16 sets, daily range): BP systolic 108–157; BP diastolic 64–82
[2022-09-29] MEDS: RT-IPRATROPIUM (ATROVENT) 0.5MG/2.5ML AMP IH SCH ×4 (03:12→21:40)
[2022-09-29] MEDS: RT-ALBUTEROL SULF 2.5 MG/3 ML PRE-MIX VIAL INH SCH ×4 (03:13→21:39)
[2022-09-29] MEDS: CATHETER FLUSH 10 ML SYR IVP SCH ×3 (06:11→20:30)
[2022-09-29] MEDS: RT--FLUTICASONE/SALMETEROL 232-14 (AIRDUO RespiCLICK) IH SCH ×2 (08:00→21:40)
[2022-09-29] MEDS: UMECLIDINIUM BROMIDE (INCRUSE ELLIPTA) 7'S IH SCH (08:01)
[2022-09-29] MEDS: PANTOPRAZOLE 40 MG (PROTONIX) TAB PO SCH (09:00)
[2022-09-29] MEDS: ASPIRIN E.C. 81 MG (ECOTRIN) TAB PO SCH (09:00)
[2022-09-29] MEDS: LOSARTAN 100 MG (COZAAR) TABLET PO SCH (09:00)
--- NOTE | 2022-09-29 11:04 | Progress Note ---
Subjective Date Seen by a Provider: Sep 29, 2022 Time Seen by a Provider: 11:01 Subjective/Events-last exam Fwup chest pain, history of CAD, Hypertensive urgency, dyspnea, cough, COPD, tobacco abuse. Going for heart cath today. Objective Exam Vital Signs Date Time Temp Pulse Resp B/P (MAP) Pulse Ox O2 Delivery O2 Flow Rate FiO2 09/29/22 08:40 94 Room Air 09/29/22 08:28 36.6 70 24 157/82 (107) 94 Room Air 09/29/22 08:01 95 Room Air 09/29/22 07:00 73 09/29/22 05:15 36.6 64 20 116/75 (89) 96 Room Air 09/29/22 03:13 95 Room Air 09/29/22 01:00 54 09/29/22 00:39 36.8 56 18 149/79 (102) 93 Room Air 09/29/22 00:00 65 22 149/79 (102) Room Air 09/28/22 21:35 96 Room Air 09/28/22 20:00 93 Room Air 09/28/22 19:24 36.8 61 20 152/80 (104) 93 Room Air 09/28/22 19:00 61 09/28/22 15:47 36.2 62 18 144/81 (102) 95 Room Air 09/28/22 13:03 36.0 64 22 171/99 (123) 92 Room Air 09/28/22 13:03 36.4 65 24 161/101 (121) 95 Room Air 09/28/22 13:00 59 09/28/22 11:49 65 161/101 (121) 95 I & O 09/29/22 07:00 Intake Total 1000 ml Balance 1000 ml Capillary Refill : Less Than 3 Seconds General Appearance: No Apparent Distress Neck: Supple Respiratory: Lungs Clear, Decreased Breath Sounds Cardiovascular: Regular Rate, Rhythm, Systolic Murmur Gastrointestinal: normal bowel sounds, non tender, soft Extremity: Non Tender, No Calf Tenderness, No Pedal Edema Neurologic/Psychiatric: Alert, Oriented x3 Assessment/Plan Assessment/Plan Assess & Plan/Chief Complaint 1. Chest Pain/History of CAD--cardiac cath today 2. Hypertensive Urgency--BP improving 3. Cough/Dyspnea/COPD/Tobacco Abuse--improving, long discussion about smoking cessation Clinical Quality Measures Admission Status Admission Dx 1. Chest Pain--concerning for angina--admitted to cardiac stepdown for repeat cardiac enzymes, cardiology consult, ECHO and stress test 2. COPD/Dyspnea--resume Breztri and SVNS with duoneb, smoking cessation recommended 3. Hypertensive Urgency--given IV labetalol in ER, resume metoprolol and losartan 4. GERD--start protonix AMI/AHF: ASA po Prior to arrival: UDAY Hickey DO Sep 29, 2022 11:04
[2022-09-29] MEDS ORDERED: LIDOCAINE 1% INJ 20 ML VIAL ONE ×2 (11:20→13:31)
[2022-09-29] MEDS ORDERED: HEParin (CATH LAB) 2,000 ML IV ONE (11:20)
--- NOTE | 2022-09-29 12:41 | Cardiology Progress Note ---
Subjective Date Seen by Provider: Sep 29, 2022 Time Seen by Provider: 12:41 Subjective/Events-last exam Patient was seen at bedside, sitting comfortably. Objective-Cardiology Exam Last Set of Vital Signs Vital Signs 09/27/22 09/29/22 17:52 12:14 Temp 36.5 Pulse 66 Resp 20 B/P (MAP) 129/76 (93) Pulse Ox 93 O2 Delivery Room Air FiO2 21 I&O Intake and Output 09/29/22 00:00 Intake Total 1150 ml Balance 1150 ml Intake Oral 1150 ml # Voids 12 # Bowel Movements 1 General: Alert, Oriented X3, Cooperative HEENT: Atraumatic, PERRLA Neck: Supple, No JVD, No Thyromegaly Lungs: Clear to Auscultation, Normal Air Movement Heart: Regular Rate, Normal S1, Normal S2, No Murmurs Abdomen: Normal Bowel Sounds, Soft, No Tenderness, No Hepatosplenomegaly, No Masses Extremities: No Clubbing, No Cyanosis, No Edema, Normal Pulses, No Tenderness/Swelling Skin: No Rashes, No Breakdown, No Significant Lesion Neuro: Normal Gait, Normal Speech, Strength at 5/5 X4 Ext, Normal Tone, Sensa tion Intact Psych/Mental Status: Mental Status NL, Mood NL A/P-Cardiology Admission Diagnosis Chest pain Dyspnea Coronary artery disease Hypertensive urgency Assessment/Plan Chest pain resembling angina, increasing dyspnea on exertion and pedal edema. Abnormal stress test with anterior wall ischemia, planning for cardiac catheterization possible PTCA. Coronary artery disease Cardiac catheterization done on September 11, 2018 had a Mary Ann stent 3.5 x 18 mm to the mid right coronary artery expanded to 3.65 mm, has mild disease in the LAD nonobstructive disease. Hypertension, hypertensive urgency with active chest pain Blood pressure is better controlled Currently on losartan 100 mg daily and hydrochlorothiazide 25 mg daily Hyperlipidemia, not taking any statin Total cholesterol 155, LDL 113 Started on Lipitor 10 mg daily Hypothyroidism, managed by primary care physician Chandni, still an active smoker, educated on smoking cessation History of syncope, vasovagal in 2018. No further episodes were reported Mild bilateral carotid stenosis, last ultrasound was done in August 2020. Continue to monitor History of leg cramps and leg pain. NAT in 2019 was 1.18 on the right and 1.13 on the left, TBI was 0.5 on the right and 0.83 on the left. The right side has slight drop in the waveform below the knee. We will continue monitoring Arthritis, patient was maintained on Plaquenil. Strong family history of heart disease with multiple brothers and family members with coronary artery disease and CABG History of hydrocephalus and shunt done in March 2019 CAR GASTON MD Sep 29, 2022 12:41
--- NOTE | 2022-09-29 12:42 | Cardiac Procedure Note-CS/ASA ---
Pre-Procedure Note Pre-Op Procedure Note Date of Available H&P: Sep 29, 2022 Date H&P Reviewed: Sep 29, 2022 Time H&P Reviewed: 12:41 History & Physical: H&P Reviewed, Patient Examed, No changes noted Pre-Operative Diagnosis: Coronary artery disease Conscious Sedation Pre-Proced Time 12:41 ASA Score 3 For ASA 3 and 4: Consider anesthesia and medical clearance. Also, for patients with a history of failed moderate sedation consider anesthesia. Airway Lungs Heart ASA score ASA 1: a normal healthy patient ASA 2: a patient with a mild systemic disease (mid diabetes, controlled hypertension, obesity ASA 3: a patient with a severe systemic disease that limits activity (angina, COPD, prior Myocardial infarction) ASA 4: a patient with an incapacitating disease that is a constant threat to life (CHF, renal failure) ASA 5: a moribund patient not expected to survive 24 hrs. (ruptured aneurysm) ASA 6: a declared brain- patient whose organs are being harvested. For emergent operations, add the letter E after the classification Mallampati Classification Grade 3 Sedation Plan Analgesia, Amnesia, Plan communicated to team members, Discussed options with patient/fam, Discussed risks with patient/fam The patient is an appropriate candidate to undergo the planned procedure, sedation, and anesthesia. The patient immediately re-assessed prior to indication. CAR GASTON MD Sep 29, 2022 12:42
[2022-09-29] MEDS ORDERED: fentaNYL INJ 100 MCG/2 ML AMP ONE ×2 (12:51→13:33)
[2022-09-29] MEDS ORDERED: MIDAZOLAM 5 MG/5 ML (VERSED) VIAL ONE (12:51)
[2022-09-29] MEDS ORDERED: NS IV 1000 ML 1,000 ML ONE (13:09)
[2022-09-29] MEDS ORDERED: VERAPAMIL 5 MG/2 ML (CALAN) VIAL IV ONE (13:11)
[2022-09-29] MEDS ORDERED: HEParin 1000 UNIT/ML (10ML VIAL) FOR BOLUS ONE (13:12)
[2022-09-29] MEDS ORDERED: NITRO DRIP 25000 MCG/D5W 250 ML IV ONE (13:12)
[2022-09-29] MEDS ORDERED: MIDAZOLAM 2 MG/2 ML (VERSED) VIAL ONE (13:33)
[2022-09-29] MEDS ORDERED: ASPIRIN 325 MG (5 GR) TABLET ONE (14:02)
[2022-09-29] MEDS ORDERED: CLOPIDOGREL 300 MG (PLAVIX) TABLET PO ONE (14:03)
--- NOTE | 2022-09-29 14:07 | Cardiac Cath Report ---
Cardiac Cath Report Physician (s)/Electric Organ Assembler (s) Physician CAR GASTON MD Pre-Procedure Diagnosis Pre-Procedure Diagnosis: Coronary artery disease Post-Procedure Note Procedure Start Date: Sep 29, 2022 Name of Procedure: Left heart catheterization Stenting to the circumflex artery Findings/Procedure Note PROCEDURE NOTE: 72 years old lady with history of coronary artery disease, admitted with chest pain, had an abnormal stress test, scheduled for cardiac catheterization possible PTCA. After explaining the procedure to the patient, all pros and cons were explained, all questions were answered. The patient signed the consent and then she was placed in the cardiac catheterization laboratory. Groin was prepped in SL fashion local anesthesia was used. Sheath placed in the right femoral artery. Niurka' right and left catheter were used to access the coronary system. Niurka right was prolapsed to the left ventricular cavity, pressure was measured, pullback LV to aorta was done. Patient had 2 lesions in the circumflex artery the first lesion is 80% stenosis the second lesion is 90% stenosis. Received 6000 units of heparin Niurka left guide was used, BMW wire was advanced and parked distally then I proceeded with primary stenting upon placement of the stent for positioning that stent was sufficient to occlude the small lumen left in the artery. The distal stent was Skypoint stent 2.5 x 23 mm deployed under 14atm to 2.7 mm with excellent results, 0% residual stenosis. The proximal stent was 3 x 18 mm, postdilated with NC trek to 3.5 mm with excellent results, 0% residual stenosis At the end of the procedure the sheath was removed. Closure device was deployed. FINDINGS: Hemodynamics LV 132/20, end-diastolic pressure of 20 Aorta 128/69 mean of 92 ANATOMY: Left Main is free of obstructive disease Left Anterior Descending is moderate in size with mild disease up to 20% stenos is nonobstructive disease in the midportion Left Circumflex has 2 lesions, approximately 80% stenosis successful deployment of Skypoint stent 3 x 18 mm with 0% residual stenosis, distal lesion 90% stenosis successful deployment of Skypoint 2.5 x 23 mm expanded to 2.7 mm with excellent results 0% residual stenosis Right Coronary Artery is dominant artery moderate in size with patent stent in the mid right coronary artery LV Gram was not done, pressure was measured PERCUTANEOUS INTERVENTION: Proximal circumflex Pre stenosis 80% Post Stenosis 0% Pre MO flow 2 Post MO flow 3 Distal circumflex Prestenosis 90% Post stenosis 0% Pre-MO flow 2 Post MO flow 3 Dominance right coronary artery CONCLUSION: 1. Severe to area of stenosis in the proximal and distal circumflex artery with successful deployment of proximal stent of patricia point 3 x 18 and distally 2.5 x 23 with excellent results 2. Patent stent in the right coronary artery 3. Mild disease in the LAD nonobstructive disease DISCUSSION AND RECOMMENDATION: Patient was loaded with aspirin and Plavix. Continue to maximize medical therapy Anesthesia Type: Conscious Sedation Estimated blood loss (mL): 25 ml Contrast Amount: 80 ml Total Radiation Dose: 756 mGy Post-Procedure Diagnosis Post-operative diagnosis: Chest pain Coronary artery disease Hypertension Hyperlipidemia CAR GASTON MD Sep 29, 2022 14:07
[2022-09-29] MEDS: NS IV 1000 ML 1,000 ML IV SCH (14:15)
[2022-09-29] MEDS ORDERED: PATIENT MAY USE OWN MEDS, ALL PO SCH (14:15)
[2022-09-29] MEDS ORDERED: ONDANSETRON 4 MG/2 ML (SDV) Z0FRAN IVP PRN (14:45)
[2022-09-29] MEDS: ACETAMINOPHEN 325 MG TABLET PO PRN (15:20)
[2022-09-29] MEDS: AtorvaSTATin TABLET 10 MG TABLET PO SCH (20:29)
[2022-09-30] VITALS: BP 119/70
[2022-09-30] MEDS: NS IV 1000 ML 1,000 ML IV SCH ×2 (00:15→10:20)
[2022-09-30 03:37] VITALS: BP 127/68
[2022-09-30] MEDS: CATHETER FLUSH 10 ML SYR IVP SCH (05:33)
[2022-09-30] MEDS: RT-ALBUTEROL SULF 2.5 MG/3 ML PRE-MIX VIAL INH SCH (07:07)
[2022-09-30] MEDS: RT-IPRATROPIUM (ATROVENT) 0.5MG/2.5ML AMP IH SCH (07:07)
[2022-09-30] MEDS: UMECLIDINIUM BROMIDE (INCRUSE ELLIPTA) 7'S IH SCH (07:08)
[2022-09-30] MEDS: RT--FLUTICASONE/SALMETEROL 232-14 (AIRDUO RespiCLICK) IH SCH (07:08)
[2022-09-30 08:00] VITALS: BP 132/75
[2022-09-30] MEDS: ASPIRIN E.C. 81 MG (ECOTRIN) TAB PO SCH (08:07)
[2022-09-30] MEDS: PANTOPRAZOLE 40 MG (PROTONIX) TAB PO SCH (08:07)
[2022-09-30] MEDS: LOSARTAN 100 MG (COZAAR) TABLET PO SCH (08:08)
[2022-09-30] MEDS ORDERED: CLOPIDOGREL 75 MG (PLAVIX) TABLET PO SCH (09:00)
[2022-09-30] MEDS ORDERED: ATOR10TA66 PO (10:18)
[2022-09-30] MEDS ORDERED: CLOP75TA28 PO (10:18)
[2022-09-30 11:25] VITALS: BP 132/75
--- NOTE | 2022-09-30 12:04 | Cardiology Progress Note ---
Subjective Date Seen by Provider: Sep 30, 2022 Time Seen by Provider: 12:02 Subjective/Events-last exam Patient was seen at bedside, reporting that she is feeling better. No new complaint Review of Systems General: No Chills, No Night Sweats, No Fatigue, No Malaise, No Appetite, No Other HEENT: No Head Aches, No Visual Changes, No Eye Pain, No Ear Pain, No Dysphasia, No Sinus Congestion, No Post Nasal Drip, No Sore Throat, No Other Pulmonary: No Dyspnea, No Cough, No Pleuritic Chest Pain, No Other Cardiovascular: No: Chest Pain, Palpitations, Orthopnea, Paroxysmal Noc. Dyspnea, Edema, Lt Headedness, Other Objective-Cardiology Exam Last Set of Vital Signs Vital Signs 09/29/22 09/30/22 19:10 11:25 Temp 36.3 Pulse 69 Resp 22 B/P (MAP) 132/75 (94) Pulse Ox 98 O2 Delivery Room Air FiO2 21 I&O Intake and Output 09/30/22 00:00 Intake Total 500 ml Balance 500 ml Intake Oral 500 ml # Voids 4 General: Alert, Oriented X3, Cooperative HEENT: Atraumatic, PERRLA Neck: Supple, No JVD, No Thyromegaly Lungs: Clear to Auscultation, Normal Air Movement Heart: Regular Rate, Normal S1, Normal S2, No Murmurs Abdomen: Normal Bowel Sounds, Soft, No Tenderness, No Hepatosplenomegaly, No Masses Extremities: No Clubbing, No Cyanosis, No Edema, Normal Pulses, No Tenderness/Swelling Skin: No Rashes, No Breakdown, No Significant Lesion Neuro: Normal Gait, Normal Speech, Strength at 5/5 X4 Ext, Normal Tone, Sensation Intact Psych/Mental Status: Mental Status NL, Mood NL A/P-Cardiology Admission Diagnosis Chest pain Dyspnea Coronary artery disease Hypertensive urgency Assessment/Plan Chest pain resembling angina, increasing dyspnea on exertion and pedal edema. Reporting improvement Coronary artery disease Cardiac catheterization done on September 11, 2018 had a Mary Ann stent 3.5 x 18 mm to the mid right coronary artery expanded to 3.65 mm, has mild disease in the LAD nonobstructive disease. Cardiac catheterization done on September 30, 2022 with patent stent in the right coronary artery, successful deployment of 2 stents in the circumflex artery approximately 3 x 18 expanded to 3.5 mm, distally 2.5 x 23 expanded to 2.7 with excellent results LAD has mild disease nonobstructive disease Hypertension, hypertensive urgency with active chest pain Blood pressure is better controlled Currently on losartan 100 mg daily and hydrochlorothiazide 25 mg daily Hyperlipidemia, not taking any statin Total cholesterol 155, LDL 113 Started on Lipitor 10 mg daily Hypothyroidism, managed by primary care physician Chandni, still an active smoker, educated on smoking cessation History of syncope, vasovagal in 2018. No further episodes were reported Mild bilateral carotid stenosis, last ultrasound was done in August 2020. Continue to monitor History of leg cramps and leg pain. NAT in 2019 was 1.18 on the right and 1.13 on the left, TBI was 0.5 on the right and 0.83 on the left. The right side has slight drop in the waveform below the knee. We will continue monitoring Arthritis, patient was maintained on Plaquenil. Strong family history of heart disease with multiple brothers and family members with coronary artery disease and CABG History of hydrocephalus and shunt done in March 2019 Okay for discharge and follow-up as an outpatient CAR GASTON MD Sep 30, 2022 12:04
--- NOTE | 2022-09-30 21:23 | Discharge Summary ---
Discharge Summary Hospital Course Problems/Dx: (1) Chest pain Status: Acute Qualifiers: Qualified Codes: R07.9 - Chest pain, unspecified (2) CAD (coronary artery disease) Status: Acute (3) S/P coronary artery stent placement Status: Acute (4) HTN (hypertension) Status: Acute Hospital Course Date of Admission: Sep 27, 2022 at 17:21 Admission Diagnosis : Chest pain Family Physician/Provider: Uday White DO Date of Discharge: 09/30/22 Discharge Diagnosis: CAD s/p coronary stenting Hospital Course: Dari Costello is a 72 year old female who presented with chest pain. Cardiology was consulted and assisted with her care. Her troponins were normal. She underwent a Lexiscan which indicated reversible ischemia. She had a left heart cath and had two coronary stents placed in her left circumflex artery. She was continued on Aspirin and Plavix. She should continue her statin. She was discharged home in stable condition. She should follow up with Drs. White and Raquel as scheduled. Labs and Pending Lab Test: Home Meds Active Atorvastatin Calcium 10 Mg Tablet 10 Mg PO HS Clopidogrel (Clopidogrel Bisulfate) 75 Mg Tablet 75 Mg PO DAILY Reported Aspirin EC (Aspirin) 81 Mg Tablet.dr 81 Mg PO DAILY Losartan Potassium 100 Mg Tablet 100 Mg PO DAILY Breztri Aerosphere Inhaler (Budesonide/Glycopyr/Formoterol) 160 Mcg-9 Mcg-4.8 Mcg/Actuation Hfa.aer.ad 2 Puff INH BID Metoprolol Succinate 100 Mg Tab.er.24h 100 Mg PO DAILY Assessment/Pt Instructions See instructions Discharge Planning: <30 minutes discharge planning Discharge Instructions Discharge Diet: Low Sodium Diet Activity as Tolerated: Yes Consultations Cardiology Discharge Physical Examination Vital Signs Vital Signs Date Time Temp Pulse Resp B/P (MAP) Pulse Ox O2 Delivery O2 Flow Rate FiO2 09/30/22 13:20 09/30/22 11:25 36.3 69 22 98 Room Air 09/29/22 19:10 21 General Appearance: No Apparent Distress, Obese HEENT: PERRL/EOMI, Pharynx Normal Respiratory: Lungs Clear, No Respiratory Distress Cardiovascular: Regular Rate, Rhythm, No Murmur Gastrointestinal: Normal Bowel Sounds, Soft Extremity: Normal Inspection, No Pedal Edema Skin: Warm/Dry, Ecchymosis (right wrist) Neurologic/Psychiatric: Alert, Normal Mood/Affect Allergies: Coded Allergies: erythromycin base (Verified Allergy, Intermediate, HIVES, 07/23/20) gluten (Verified Allergy, Mild, HEADACHES, 07/23/20) Penicillins (Unverified Allergy, Unknown, FROM CHILDHOOD, 07/23/20) Copy Copies To 1: UDAY WHITE DO Discharge Summary Date of Admission Sep 27, 2022 at 17:21 Date of Discharge Sep 30, 2022 at 13:45 Discharge Date: Sep 30, 2022 Discharge Time: 13:45 Admission Diagnosis Chest pain Consults/Procedures Consulations Cardiology Procedures Stress test, left heart cath with coronary stenting Discharge Diagnosis (1) Chest pain Status: Acute Qualifiers: Qualified Codes: R07.9 - Chest pain, unspecified (2) CAD (coronary artery disease) Status: Acute (3) S/P coronary artery stent placement Status: Acute (4) HTN (hypertension) Status: Acute Clinical Quality Measures AMI/AHF: ASA po Prior to arrival: CR Kaplan MD Sep 30, 2022 21:23
== END 2022-09-30 11:59 | disposition home or self-care (01) ==
LOC: EDUNIT# 14:41 → ER 14:43 → UNDOADMOB 17:21 → CSD 17:21 → UNDODISOB 09-30 11:59
PROVIDERS: ADMIT Family Medicine; ATTEND Family Medicine
DX: I25.10 Atherosclerotic heart disease of native coronary artery without angina pectoris (principal); I10 Essential (primary) hypertension; F17.210 Nicotine dependence, cigarettes, uncomplicated; I16.0 Hypertensive urgency; K21.9 Gastro-esophageal reflux disease without esophagitis; E78.5 Hyperlipidemia, unspecified; E03.9 Hypothyroidism, unspecified; I65.23 Occlusion and stenosis of bilateral carotid arteries; M19.90 Unspecified osteoarthritis, unspecified site; Z79.899 Other long term (current) drug therapy; Z95.5 Presence of coronary angioplasty implant and graft; Z79.02 Long term (current) use of antithrombotics/antiplatelets; Z79.82 Long term (current) use of aspirin; Z86.69 Personal history of other diseases of the nervous system and sense organs
CPT/HCPCS: 36140; 71045; 78452; 80048; 80053; 80061; 83735 ×2; 83874; 84484 ×2; 85025; 85027; 85347; 85610; 85730; 93005 ×2; 93017; 93041; 93458; 94640 ×7; 96375; 99284; A9502; C1725; C1760; C1769; C1874 ×2; C1887; C1894 ×2; C8929; C9600; G0378; 36415; 93306

== ENCOUNTER → 2022-12-05 | Outpatient (CLI) | payer MEDICARE ==
[~2022-12-05] MED LIST changes: +BUDE10.7 INH; +LOSA100T57 PO; +MTP100TCR PO
[2022-12-05 10:29] LABS: BASOPHILS # (AUTO) 0.1 10^3/uL (0.0-0.1); BASOPHILS % (AUTO) 1 % (0-10); EOSINOPHILS # (AUTO) 0.3 10^3/uL (0.0-0.3); EOSINOPHILS % (AUTO) 2 % (0-10); HEMATOCRIT 46 % (35-52); HEMOGLOBIN 15.1 g/dL (11.5-16.0); LYMPHOCYTES # (AUTO) 2.2 10^3/uL (1.0-4.0); LYMPHOCYTES % (AUTO) 16 % (12-44); MEAN CORPUSCULAR HEMOGLOBIN 31 pg (25-34); MEAN CORPUSCULAR HGB CONC 33 g/dL (32-36); MEAN CORPUSCULAR VOLUME 94 fL (80-99); MEAN PLATELET VOLUME 9.9 fL (9.0-12.2); MONOCYTES # (AUTO) 1.4 10^3/uL (0.0-1.0); MONOCYTES % (AUTO) 10 % (0-12); NEUTROPHILS # (AUTO) 9.6 10^3/uL (1.8-7.8); NEUTROPHILS % (AUTO) 70 % (42-75); PLATELET COUNT 367 10^3/uL (130-400); WHITE BLOOD COUNT 13.6 10^3/uL (4.3-11.0)
[2022-12-05 10:53] LABS: ALANINE AMINOTRANSFERASE 21 U/L (0-55); ALBUMIN 3.8 GM/DL (3.2-4.5); ALKALINE PHOSPHATASE 75 U/L (40-136); BILIRUBIN,TOTAL 0.5 MG/DL (0.1-1.0); BUN/CREATININE RATIO 12; CALCIUM 9.1 MG/DL (8.5-10.1); CARBON DIOXIDE 24 MMOL/L (21-32); CHLORIDE 106 MMOL/L (98-107); CREATINE KINASE 125 U/L (29-168); CREATININE SERUM 0.84 MG/DL (0.60-1.30); GFR ESTIMATED 75; GLUCOSE 120 MG/DL (70-105); POTASSIUM 3.9 MMOL/L (3.6-5.0); SODIUM 141 MMOL/L (135-145); TOTAL PROTEIN 7.3 GM/DL (6.4-8.2)
== END ==
LOC: CARD 10:11
PROVIDERS: ATTEND Family Medicine
DX: I21.3 ST elevation (STEMI) myocardial infarction of unspecified site (principal)
CPT/HCPCS: 36415; 80053; 82550; 84484; 85025; 85379; 93005

== ENCOUNTER → 2022-12-13 | Outpatient (CLI) | payer MEDICARE ==
[~2022-12-13] MED LIST changes: -LOSA100T57 PO; +LOSA100T58 PO; +POTA-330 PO; -POTA-51 PO
--- NOTE | 2022-12-13 12:24 | Diagnostic Imaging Report ---
PROCEDURE: CT angiography of the chest with contrast. TECHNIQUE: Multiple contiguous axial images were obtained through the chest after uneventful bolus administration of intravenous contrast. 3D reconstructed CTA MIP acquisitions were also performed. Auto Exposure Controls were utilized during the CT exam to meet ALARA standards for radiation dose reduction. INDICATION: Shortness of breath. Evaluate for pulmonary emboli. COMPARISON: 11/23/2021. FINDINGS: This helical CT pulmonary angiogram is diagnostic to the subsegmental level branches of the pulmonary artery and demonstrates no pulmonary emboli. The heart and great vessels are unremarkable. There is no pericardial effusion. Prominent lymph nodes are seen in the mediastinum, with the largest in the right paratracheal station measuring 1.3 cm. Irregular consolidative opacity is seen in the right upper lobe measuring 6.9 x 5.1 cm and 7.8 cm craniocaudal. This is new since the prior exam. Emphysema is seen in the lungs, greatest in the apices. No pleural effusion or pneumothorax. No central endobronchial obstructing lesion. Osseous structures appear normal. Chronic rib fractures are noted. Limited views of the upper abdomen are unremarkable. IMPRESSION: 1. No acute pulmonary embolus. 2. Findings concerning for lung malignancy in the right upper lobe with an irregular consolidative opacity measuring 6.9 x 5.1 x 7.8 cm. Alternatively, this could represent a focus of pneumonia. Prominent mediastinal lymph nodes are also present which are new. Recommend continued close follow-up. Dictated by: Dictated on workstation # [id number]
== END ==
LOC: RAD 08:15
PROVIDERS: ATTEND Family Medicine
DX: R07.9 Chest pain, unspecified (principal); R06.00 Dyspnea, unspecified; R79.1 Abnormal coagulation profile; R06.02 Shortness of breath
CPT/HCPCS: 71275

== ENCOUNTER → 2023-06-07 | Outpatient (CLI) | payer MEDICARE ==
[~2023-06-07] MED LIST changes: -HYDR200T46 PO; +HYDR200T71 PO
--- NOTE | 2023-06-07 10:42 | Diagnostic Imaging Report ---
Indication: Routine screening. Comparison: No prior studies are available for comparison. 2-D and 3-D bilateral screening mammography was performed with CAD. Both breasts are heterogeneously dense, limiting the sensitivity of mammography. There are scattered benign calcifications throughout both breasts. No spiculated mass or malignant-appearing microcalcifications are seen. Axillae are unremarkable. IMPRESSION: BI-RADS Category 2 No mammographic features suspicious for malignancy are identified. ACR BI-RADS Category 2: Benign findings. Result letter will be mailed to the patient. Note: At least 10% of breast cancer is not imaged by mammography. Dictated by: Dictated on workstation # [id number]
== END ==
LOC: RAD 07:10
PROVIDERS: ATTEND Family Medicine
DX: Z12.31 Encounter for screening mammogram for malignant neoplasm of breast (principal)
CPT/HCPCS: 77063; 77067